=== PATIENT | female | born 1935 | race Caucasian/White ===

== ENCOUNTER 2017-05-05 11:28 | Inpatient (IN) | payer OTHER, BC ==
[2017-05-05] MEDS ORDERED: ASPIRIN 81 MG CHEWABLE TABLETS PO SCH (13:00)
[2017-05-05] MEDS ORDERED: ASPIRIN 81 MG CHEWABLE TABLETS ONE (13:16)
[2017-05-05 13:40] LABS: EOS % 0.3 % (0-4.5); HEMATOCRIT 35.1 % (32.4-45.2); HEMOGLOBIN 11.5 GM/dL (10.7-15.3); LYMPH % 11.9 % (8-40); MCH 29.7 pg (25.7-33.7); MCHC 32.9 g/dl (32.0-36.0); MEAN CELL VOLUME 90.2 fl (80-96); MEAN PLT VOLUME 9.9 fl (7.5-11.1); MONO % 5.3 % (3.8-10.2); NEUT % 81.5 % (42.8-82.8); PLATELET COUNT 187 K/MM3 (134-434); RBC 3.89 M/mm3 (3.60-5.2); WHITE BLOOD COUNT 6.3 K/mm3 (4.0-10.0)
--- NOTE | 2017-05-05 13:41 | PDOC ---
History of Present Illness - General History Source: Patient Exam Limitations: No Limitations <Matt Valenzuela - Last Filed: 05/05/17 16:30> - General History Source: Patient Exam Limitations: No Limitations - History of Present Illness Initial Comments: 05/05/17 14:31 The patient is an 82 year old female with a significant PMH of CAD (s/p 3 vessel CABG in 2016), anemia, HTN, hyperlipidemia, chronic bilateral LE edema, recurrent urinary incontinence who presents to the emergency department from [address] [place] [address] with an episode of chest pain this morning and for evaluation of left arm skin ulceration s/p fall 2 days ago. The patient describes her chest pain as a 30 minute episode of aching left sided chest discomfort, about 4/10 in severity with associated shortness of breath. She currently denies any chest pain or shortness of breath. The [facility] home health aide also reports that the patient fell onto her walker about 2 days ago while getting up from her chair, sustaining a left forearm wound and bruising and left leg bruising. The patient states she has not had her left arm wound treated since then. The patient denies diaphoresis or changes in vision. She denies any jaw pain or arm pain. The patient denies headache and dizziness. Denies fever, chills, nausea, vomit, diarrhea and constipation. Denies dysuria, frequency, urgency and hematuria. Allergies: NKA Past surgical history: CABG. Bilateral shoulder and bilateral knee surgeries. Social history: No reported cigarette, alcohol, or drug use. PCP: Dr. Donato <Matt Whiting - Last Filed: 05/05/17 16:47> - General Chief Complaint: Chest Pain Stated Complaint: CHEST DISCOMFORT Time Seen by Provider: 05/05/17 12:21 Past History - Past Medical History Anemia: Yes Cardiac Disorders: Yes COPD: No CHF: Yes Disorders: Yes (INCONTINENT) HTN: Yes Hypercholesterolemia: Yes - Surgical History Orthopedic Surgery: Yes (BILAT TKR, SHOULDER REPLACEMENT) - Suicide/Smoking/Psychosocial Hx Smoking History: Never smoked Have you smoked in the past 12 months: No Hx Alcohol Use: No Drug/Substance Use Hx: No Substance Use Type: None Hx Substance Use Treatment: No <Matt Valenzuela - Last Filed: 05/05/17 16:30> <Matt Whiting - Last Filed: 05/05/17 16:47> - Past Medical History Allergies/Adverse Reactions: Allergies Allergy/AdvReac Type Severity Reaction Status Date / Time No Known Allergies Allergy Verified 05/05/17 11:44 Home Medications: Ambulatory Orders Atorvastatin Ca [Lipitor] 40 mg PO HS 10/16/15 Folic Acid 1 mg PO DAILY 10/16/15 Furosemide 20 mg PO DAILY 10/16/15 Metoprolol Tartrate 25 mg PO DAILY 10/16/15 Potassium Chloride 20 meq PO DAILY 10/16/15 Acetaminophen [Tylenol] 500 mg PO BID PRN 05/05/17 Aspirin [Aspirin EC] 325 mg PO DAILY 05/05/17 Famotidine [Pepcid -] 40 mg PO DAILY 05/05/17 Review of Systems - Review of Systems Able to Perform ROS?: Yes Comments:: 05/05/17 14:31 GENERAL/CONSTITUTIONAL: No fever or chills. No weakness. HEAD, EYES, EARS, NOSE AND THROAT: No change in vision. No ear pain or discharge. No sore throat. CARDIOVASCULAR: (+) 1 episode of chest pain and shortness of breath (now resolved). RESPIRATORY: No cough, wheezing, or hemoptysis. GASTROINTESTINAL: No nausea, vomiting, diarrhea or constipation. GENITOURINARY: No dysuria, frequency, or change in urination. MUSCULOSKELETAL: No joint or muscle swelling or pain. No neck or back pain. SKIN: (+) Left arm wound. (+) Left leg bruising. NEUROLOGIC: No headache, vertigo, loss of consciousness, or change in strength/ sensation. ENDOCRINE: No increased thirst. No abnormal weight change. HEMATOLOGIC/LYMPHATIC: No anemia, easy bleeding, or history of blood clots. ALLERGIC/IMMUNOLOGIC: No hives or skin allergy. <Matt Whiting - Last Filed: 05/05/17 16:47> *Physical Exam - Vital Signs Last Vital Signs Temp Pulse Resp BP Pulse Ox 97.3 F L 79 18 136/60 97 05/05/17 11:44 05/05/17 11:44 05/05/17 11:44 05/05/17 11:44 05/05/17 11:44 <Matt Valenzuela - Last Filed: 05/05/17 16:30> - Vital Signs Last Vital Signs Temp Pulse Resp BP Pulse Ox 97.3 F L 79 18 136/60 97 05/05/17 11:44 05/05/17 11:44 05/05/17 11:44 05/05/17 11:44 05/05/17 11:44 - Physical Exam Comments: 05/05/17 14:32 GENERAL: Awake, alert, and fully oriented, in no acute distress HEAD: No signs of trauma EYES: PERRLA, EOMI, sclera anicteric, conjunctiva clear NECK: Normal ROM, supple, no lymphadenopathy, JVD, or masses LUNGS: Breath sounds equal, clear to auscultation bilaterally. No wheezes, and no crackles HEART: Regular rate and rhythm, normal S1 and S2, no murmurs, rubs or gallops EXTREMITIES: (+) Chronic LE edema and erythema. Normal range of motion. No clubbing or cyanosis. No cords or tenderness NEUROLOGICAL: Cranial nerves II through XII grossly intact. Normal speech. SKIN: (+) 6x6 cm. erythema with skin ulcerations to left UE. (+) Left LE hematoma over knee. <Matt Whiting - Last Filed: 05/05/17 16:47> Heart Score/ECG Review - History History: Slightly suspicious - Electrocardiogram EKG: Non specific repolarization disturbance - Age Age: >/= 65 - Risk Factors Based on the list above the patient has:: >/=3 risk factors or Hx atherosclerotic disease #1 ECG reviewed & interpreted by me at: 12:10 05/05/17 14:06 NSR 78, Q wave III, no std/beatriz, normal intervals, QTC 414 msec <Matt Valenzuela - Last Filed: 05/05/17 16:30> ED Treatment Course - LABORATORY CBC & Chemistry Diagram: 05/05/17 12:56 05/05/17 12:56 - RADIOLOGY Radiology Studies Ordered: Category Date Time Status CHEST X-RAY PORTABLE* [RAD] Stat Radiology 05/05/17 12:55 Ordered <Matt Valenzuela - Last Filed: 05/05/17 16:30> - LABORATORY CBC & Chemistry Diagram: 05/05/17 12:56 05/05/17 12:56 - ADDITIONAL ORDERS Additional order review: Laboratory Results 05/05/17 05/05/17 14:02 12:56 Sodium 145 Potassium 4.5 Chloride 110 H Carbon Dioxide 24 Anion Gap 11 BUN 24 H Creatinine 0.6 Creat Clearance w eGFR > 60 POC Glucometer 134.48935 Random Glucose 81 Calcium 8.4 L Phosphorus 3.2 Magnesium 2.4 Total Bilirubin 0.5 D AST 16 ALT 15 Alkaline Phosphatase 96 Creatine Kinase 102 Troponin I < 0.02 Total Protein 6.6 Albumin 3.2 L 05/05/17 05/05/17 14:02 12:56 RBC 3.89 MCV 90.2 MCHC 32.9 RDW 16.0 H D MPV 9.9 Neutrophils % 81.5 Lymphocytes % 11.9 D Monocytes % 5.3 Eosinophils % 0.3 Basophils % 1.0 POC Glucometer 134.72882 <Matt Whiting - Last Filed: 05/05/17 16:47> Medical Decision Making - Medical Decision Making 05/05/17 14:05 A portion of this note was documented by scribe services under my direction. I have reviewed the details of the note, within reason, and agree with the documentation with the following case summary and management plan written by me. Patient treated in the ED. Nursing notes are reviewed and incorporated into the medical decision-making. Vital signs reviewed. Peripheral IV access obtained by the nurse, laboratory studies are drawn and sent, reviewed and interpreted by myself. Vital Signs Temp Pulse Resp BP Pulse Ox 97.3 F L 79 18 136/60 97 05/05/17 11:44 05/05/17 11:44 05/05/17 11:44 05/05/17 11:44 05/05/17 11:44 82 year old female with past medical history of hypertension, hyperlipidemia, coronary disease status post CABG presents with 2 complaints. 2 days ago, the patient had a mechanical fall and landed on her walker. Stated that she sustained a scratch onto her left forearm. She developed bruising to her left lower extremity. Since then, the patient has not developed any fevers but noted increasing erythema along the skin ulceration a left arm. Patient reports chronic history of chest discomfort that occasionally pinching squeezing. Had some associated shortness of breath. Stated the symptoms were persistent but the patient reports that this is a chronic issue. Patient has spoken to her doctor at the [facility], [facility] for rehab medicine, and sent the patient to ED for evaluation. Patient's chest pain is atypical blood patient is high risk for acute coronary syndrome. We'll send a troponin, labs and admit the patient for rule out NE. However, we'll concerning insists developing cellulitis over the left upper extremity. Blood cultures were ordered and ceftriaxone and vancomycin was ordered. Ultimately, the patient should be admitted to the hospital. 05/05/17 16:30 CBC, BMP 05/05/17 12:56 05/05/17 12:56 CMP Sodium 145 mmol/L (136-145) 05/05/17 12:56 Potassium 4.5 mmol/L (3.5-5.1) 05/05/17 12:56 Chloride 110 mmol/L (98-107) H 05/05/17 12:56 Carbon Dioxide 24 mmol/L (21-32) 05/05/17 12:56 Anion Gap 11 (8-16) 05/05/17 12:56 BUN 24 mg/dL (7-18) H 05/05/17 12:56 Creatinine 0.6 mg/dL (0.55-1.02) 05/05/17 12:56 Creat Clearance w eGFR > 60 (>60) 05/05/17 12:56 POC Glucometer 134.25166 UNITS (80-120) 05/05/17 14:02 Random Glucose 81 mg/dL (74-106) 05/05/17 12:56 Calcium 8.4 mg/dL (8.5-10.1) L 05/05/17 12:56 Phosphorus 3.2 mg/dL (2.5-4.9) 05/05/17 12:56 Magnesium 2.4 mg/dL (1.8-2.4) 05/05/17 12:56 Total Bilirubin 0.5 mg/dL (0.2-1.0) D 05/05/17 12:56 AST 16 U/L (15-37) 05/05/17 12:56 ALT 15 U/L (12-78) 05/05/17 12:56 Alkaline Phosphatase 96 U/L (45-117) 05/05/17 12:56 Creatine Kinase 102 IU/L (26-192) 05/05/17 12:56 Troponin I < 0.02 ng/ml (0.00-0.05) 05/05/17 12:56 Total Protein 6.6 g/dl (6.4-8.2) 05/05/17 12:56 Albumin 3.2 g/dl (3.4-5.0) L 05/05/17 12:56 Patient's initial troponin was negative. Case was discussed with Dr. Pena who is aware that the patient is here in the ED. Will be life consultant. Case discussed with Dr. Frausto who accepts patient to her service. Requests Dr. Muniz for ID consultation. Dr. Muniz paged. Case discussed in detail with admitting physician including history, physical exam and ancillary studies. Admitting physician has assumed care for the patient, will follow all pending diagnostics and will complete the evaluation and treatment. <Matt Valenzuela - Last Filed: 05/05/17 16:30> - Medical Decision Making 05/05/17 15:[address] Bryant at 14:35, awaiting callback. 2nd page for Dr. Bryant at 15:15, awaiting callback. 05/05/17 16:05 3rd page sent out at 15:50, discussed case with Dr. Bryant. 05/05/17 16:[address] Muniz, who will follow the case. <Matt Whiting - Last Filed: 05/05/17 16:47> *DC/Admit/Observation/Transfer - Discharge Dispostion Admit: Yes <Matt Valenzuela - Last Filed: 05/05/17 16:30> - Attestations Scribe Attestion: 05/05/17 14:32 Documentation prepared by Matt Whiting, acting as anesthesiology medical doctor for Matt Valenzuela MD. <Matt Whiting - Last Filed: 05/05/17 16:47> Diagnosis at time of Disposition: Cellulitis Qualifiers: Site of cellulitis: extremity Site of cellulitis of extremity: upper extremity Laterality: left Qualified Code(s): L03.114 - Cellulitis of left upper limb - Discharge Dispostion Condition at time of disposition: Stable
[2017-05-05 14:01] LABS: ALBUMIN 3.2 g/dl (3.4-5.0); ANION GAP 11 (8-16); BILIRUBIN,TOTAL 0.5 mg/dL (0.2-1.0); BLOOD UREA NITROGEN 24 mg/dL (7-18); CALCIUM 8.4 mg/dL (8.5-10.1); CHLORIDE 110 mmol/L (98-107); CO2 24 mmol/L (21-32); CREATININE 0.6 mg/dL (0.55-1.02); GLUCOSE,RANDOM 81 mg/dL (74-106); MAGNESIUM 2.4 mg/dL (1.8-2.4); PHOSPHOROUS 3.2 mg/dL (2.5-4.9); POTASSIUM 4.5 mmol/L (3.5-5.1); SGOT/AST 16 U/L (15-37); SGPT/ALT 15 U/L (12-78); SODIUM 145 mmol/L (136-145); TOT PROT 6.6 g/dl (6.4-8.2)
[2017-05-05] MEDS ORDERED: CEFTRIAXONE 1 GM in DEXTROSE 5%-WATER - 50 ML IVPB ONE (14:01)
[2017-05-05] MEDS ORDERED: VANCOMYCIN 1,000 MG in DEXTROSE 5%-WATER - 250 ML IVPB ONE (14:02)
[2017-05-05 14:04] LABS: ALK PHOS 96 U/L (45-117)
[2017-05-05 14:17] LABS: INR 0.96 (0.82-1.09); PROTHROMBIN TIME (PATIENT) 10.9 SEC (9.98-11.88)
[2017-05-05 14:19] LABS: ACTIVATED PTT 20.7 SECONDS (26.9-34.4)
[2017-05-05] MEDS ORDERED: VANCOMYCIN 1 GRAM (PRE-DOCKED) 1,000 MG/250 ML BAG IVPB ONE (15:01)
[2017-05-05] MEDS ORDERED: CEFTRIAXONE 1 GM/50 ML BAG ONE (15:01)
[2017-05-05 18:48] VITALS: BMI 31.5
[2017-05-05] MEDS ORDERED: FLU VACCINE QUAD 60 MCG/0.5 ML (MDV 17-18) IM ONE (18:55)
[2017-05-05] MEDS: METOPROLOL TARTRATE 25 MG TABLET (FP) PO SCH (21:29)
[2017-05-05] MEDS: ATORVASTATIN CA 40 MG TABLET (FP) PO SCH (21:29)
[2017-05-06 07:47] LABS: HEMOGLOBIN 10.6 GM/dL (10.7-15.3); MCH 29.6 pg (25.7-33.7); MCHC 33.2 g/dl (32.0-36.0); MEAN CELL VOLUME 89.4 fl (80-96); MEAN PLT VOLUME 9.9 fl (7.5-11.1); PLATELET COUNT 181 K/MM3 (134-434); RBC 3.58 M/mm3 (3.60-5.2); RDW 15.3 % (11.6-15.6); WHITE BLOOD COUNT 4.5 K/mm3 (4.0-10.0)
[2017-05-06 07:54] LABS: CHLORIDE 110 mmol/L (98-107); POTASSIUM 4.1 mmol/L (3.5-5.1); SODIUM 143 mmol/L (136-145)
[2017-05-06 08:33] LABS: ANION GAP 12 (8-16); BLOOD UREA NITROGEN 16 mg/dL (7-18); CALCIUM 8.5 mg/dL (8.5-10.1); CO2 21 mmol/L (21-32); CREATININE 0.5 mg/dL (0.55-1.02); GLUCOSE,RANDOM 86 mg/dL (74-106)
[2017-05-06] MEDS ORDERED: METOPROLOL TARTRATE 25 MG TABLET (FP) PO SCH (10:00)
[2017-05-06] MEDS ORDERED: PT OWN MED DRAWER 7, Y5N ONE (10:16)
[2017-05-06] MEDS: FUROSEMIDE 20 MG TABLET (FP) PO SCH (10:18)
[2017-05-06] MEDS: FOLIC ACID 1 MG TABLET (FP) PO SCH (10:18)
[2017-05-06] MEDS: METOPROLOL TARTRATE 25 MG TABLET (FP) PO SCH ×2 (10:19→21:01)
[2017-05-06] MEDS: ASPIRIN 325 MG ENTERIC COATED TABLET (FP) PO SCH (10:19)
[2017-05-06] MEDS: PANTOPRAZOLE SOD 40 MG SUSPENSION PACKET PO SCH (10:19)
--- NOTE | 2017-05-06 12:14 | HP ---
Admitting History and Physical - Admission History of Present Illness: The patient is an 82 year old female with a significant PMH of CAD (s/p 3 vessel CABG in 2016), anemia, HTN, hyperlipidemia, chronic bilateral LE edema, recurrent urinary incontinence who presents to the emergency department from [address] [place] [address] with an episode of chest pain in the morning and for evaluation of left arm skin ulceration s/p fall 2 days prior to ER visit. The patient describes her chest pain as a 30 minute episode of aching left sided chest discomfort, about 4/10 in severity with associated shortness of breath, non radiating / no diaphoresis / subsided without treatment. Once at ER denied any chest pain or shortness of breath. The patients home health aide also reported that the patient fell onto her walker about 2 days ago while getting up from her chair, sustaining a left forearm wound and bruising and left leg bruising. The patient states she has not had her left arm wound treated since the fall. 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) Cardiovascular: Yes: CAD, Hyperlipdemia, Other (Lymphedema) Reproductive: Yes: Postmenopausal ...: No Heme/Onc: Yes: Anemia - Past Surgical History Past Surgical History: Yes: CABG (triple) - Smoking History Smoking history: Never smoked Have you smoked in the past 12 months: No - Alcohol/Substance Use Hx Alcohol Use: No - Social History Usual Living Arrangement: Yes: Assisted Living History of Recent Travel: No Home Medications - Allergies Allergies/Adverse Reactions: Allergies Allergy/AdvReac Type Severity Reaction Status Date / Time No Known Allergies Allergy Verified 05/05/17 11:44 - Home Medications Home Medications: Ambulatory Orders Atorvastatin Ca [Lipitor] 40 mg PO HS 10/16/15 Folic Acid 1 mg PO DAILY 10/16/15 Furosemide 20 mg PO DAILY 10/16/15 Metoprolol Tartrate 25 mg PO DAILY 10/16/15 Potassium Chloride 20 meq PO DAILY 10/16/15 Acetaminophen [Tylenol] 500 mg PO BID PRN 05/05/17 Aspirin [Aspirin EC] 325 mg PO DAILY 05/05/17 Famotidine [Pepcid -] 40 mg PO DAILY 05/05/17 Review of Systems Findings/Remarks: poor recall / and "unwilling " to discuss hx - Review of Systems Constitutional: denies: Chills, Diaphoresis, Fever Eyes: reports: No Symptoms HENT: reports: No Symptoms Neck: reports: No Symptoms Cardiovascular: reports: Chest Pain, Shortness of Breath, Other (CP associated with SOB, nonradiating/no diaphoresis). denies: Palpitations Respiratory: reports: SOB (associated with CP event) Gastrointestinal: reports: No Symptoms Genitourinary: reports: No Symptoms Breasts: reports: No Symptoms Reported Musculoskeletal: reports: No Symptoms Neurological: reports: Pre-Existing Deficit, Unsteady Gait Hematology/Lymphatic: reports: No Symptoms Physical Examination Vital Signs: Vital Signs Temperature 98.0 F 05/06/17 09:20 Pulse Rate 90 05/06/17 09:20 Respiratory Rate 22 05/06/17 09:20 Blood Pressure 114/49 05/06/17 09:20 O2 Sat by Pulse Oximetry (%) 97 05/06/17 03:00 Constitutional: Yes: Well Nourished, No Distress Eyes: Yes: WNL, Conjunctiva Clear HENT: Yes: WNL, Atraumatic, Normocephalic Neck: Yes: WNL, Supple, Trachea Midline Cardiovascular: Yes: Regular Rate and Rhythm Respiratory: Yes: WNL, CTA Bilaterally Gastrointestinal: Yes: Normal Bowel Sounds, Soft ...Rectal Exam: Yes: Deferred Renal/: Yes: WNL Breast(s): Yes: WNL Musculoskeletal: Yes: Joint Stiffness, Muscle Pain Extremities: Yes: Other (bilateral lymphedema) Edema: Yes (lymphedema chronic bilat) Peripheral Pulses WNL: Yes Integumentary: Yes: Laceration (left forearm) Wound/Incision: Yes: Open to air, Reddened Neurological: Yes: Alert, Oriented, Pre-Existing Deficit Psychiatric: Yes: Alert Labs: CBC, BMP 05/06/17 06:10 05/06/17 06:10 Problem List - Problems (1) Cellulitis Code(s): L03.90 - CELLULITIS, UNSPECIFIED Qualifiers: Site of cellulitis: extremity Site of cellulitis of extremity: upper extremity Laterality: left Qualified Code(s): L03.114 - Cellulitis of left upper limb (2) Atypical chest pain Code(s): R07.89 - OTHER CHEST PAIN (3) HTN (hypertension) Code(s): I10 - ESSENTIAL (PRIMARY) HYPERTENSION (4) Hyperlipemia Code(s): E78.5 - HYPERLIPIDEMIA, UNSPECIFIED (5) Lymphedema of both lower extremities Code(s): I89.0 - LYMPHEDEMA, NOT ELSEWHERE CLASSIFIED
--- NOTE | 2017-05-06 13:14 | CON.ID ---
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 bilateral shoulder replacements - Alcohol/Substance Use Hx Alcohol Use: No - Smoking History Smoking history: Never smoked Have you smoked in the past 12 months: No - Social History Usual Living Arrangement: Assisted Living ADL: Independent Place of : [facility] History of Recent Travel: No Home Medications - Allergies Allergies/Adverse Reactions: Allergies Allergy/AdvReac Type Severity Reaction Status Date / Time No Known Allergies Allergy Verified 05/05/17 11:44 - Home Medications Home Medications: Ambulatory Orders Atorvastatin Ca [Lipitor] 40 mg PO HS 10/16/15 Folic Acid 1 mg PO DAILY 10/16/15 Furosemide 20 mg PO DAILY 10/16/15 Metoprolol Tartrate 25 mg PO DAILY 10/16/15 Potassium Chloride 20 meq PO DAILY 10/16/15 Acetaminophen [Tylenol] 500 mg PO BID PRN 05/05/17 Aspirin [Aspirin EC] 325 mg PO DAILY 05/05/17 Famotidine [Pepcid -] 40 mg PO DAILY 05/05/17 Family Disease History - Family Disease History Family History: Unable to Obtain Review of Systems - Review of Systems Constitutional: reports: No Symptoms Eyes: reports: No Symptoms HENT: reports: No Symptoms Neck: reports: No Symptoms Cardiovascular: reports: No Symptoms Respiratory: reports: No Symptoms Gastrointestinal: reports: No Symptoms Genitourinary: reports: No Symptoms Breasts: reports: No Symptoms Reported Musculoskeletal: reports: No Symptoms Integumentary: reports: Erythema, Lesions Neurological: reports: No Symptoms Physical Exam Vital Signs: Vital Signs Temperature 98.0 F 05/06/17 09:20 Pulse Rate 90 05/06/17 09:20 Respiratory Rate 22 05/06/17 09:20 Blood Pressure 114/49 05/06/17 09:20 O2 Sat by Pulse Oximetry (%) 97 05/06/17 08:00 Constitutional: Yes: Well Nourished, No Distress, Calm Eyes: Yes: Conjunctiva Clear, EOM Intact HENT: Yes: Atraumatic, Normocephalic. No: Pharyngeal Erythema, Thrush Neck: Yes: Supple, Trachea Midline Cardiovascular: Yes: Regular Rate and Rhythm Respiratory: Yes: Regular, CTA Bilaterally Gastrointestinal: Yes: Normal Bowel Sounds, Soft ...Rectal Exam: Yes: Deferred Extremities: Yes: Other (bilateral lymphedema, well healed bilateral TKR incisions, ecchymoses of the LLE, right forearm ulcer no drainage, erythema receding from marked edges) Integumentary: Yes: Other (sutures intact L shoulder) Psychiatric: Yes: Alert Labs: CBC, BMP 05/06/17 06:10 05/06/17 06:10 Problem List - Problems (1) Cellulitis Code(s): L03.90 - CELLULITIS, UNSPECIFIED Qualifiers: Site of cellulitis: extremity Site of cellulitis of extremity: upper extremity Laterality: left Qualified Code(s): L03.114 - Cellulitis of left upper limb (2) Lymphedema of both lower extremities Code(s): I89.0 - LYMPHEDEMA, NOT ELSEWHERE CLASSIFIED Assessment/Plan cellulitis of the forearm - resolving no history of resistant organisms no abscess, cefazolin iv then po keflex
[2017-05-06] MEDS: CEFAZOLIN 2 GM/D5W 2 GM/50 ML ML IVPB SCH ×2 (15:45→18:24)
--- NOTE | 2017-05-06 16:11 | CON.CARD ---
Cardiology Consult (text) - Consultation Consultation Note: CC: cp 82 year old female with a significant PMH of CAD (s/p 3 vessel CABG in 2016), dementia, anemia, HTN, hyperlipidemia, chronic bilateral LE edema, recurrent urinary incontinence who presents to the emergency department from [address] [place] [address] with an episode of chest pain in the morning and for evaluation of left arm skin ulceration s/p fall 2 days prior to ER visit. Patient is currently confused and has no memory of the pain. Also with no memory of recent fall. Unable to obtain reliable history. Denies cp, palps, sob, dizziness, orthopnea, pnd, worsened le edema. Denies f/c/s, n/v/d, cough, congestion, h/a, pain at left arm injury, Per report, the patient had described her chest pain as a 30 minute episode of aching left sided chest discomfort, about 4/10 in severity with associated shortness of breath, non radiating / no diaphoresis / subsided without treatment. Once at ER denied any chest pain or shortness of breath. The patients home health aide also reported that the patient fell onto her walker about 2 days ago while getting up from her chair, sustaining a left forearm wound and bruising and left leg bruising. 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) Cardiovascular: Yes: CAD, Hyperlipdemia, Other (Lymphedema) Reproductive: Yes: Postmenopausal ...: No Heme/Onc: Yes: Anemia - Past Surgical History Past Surgical History: Yes: CABG (triple) - Smoking History Smoking history: Never smoked family hx: unable to obtain ros: per [facility] Ambulatory Orders Atorvastatin Ca [Lipitor] 40 mg PO HS 10/16/15 Folic Acid 1 mg PO DAILY 10/16/15 Furosemide 20 mg PO DAILY 10/16/15 Metoprolol Tartrate 25 mg PO DAILY 10/16/15 Potassium Chloride 20 meq PO DAILY 10/16/15 Acetaminophen [Tylenol] 500 mg PO BID PRN 05/05/17 Aspirin [Aspirin EC] 325 mg PO DAILY 05/05/17 Famotidine [Pepcid -] 40 mg PO DAILY 05/05/17 Current Medications Aspirin (Ecotrin -) 325 mg PO DAILY [facility] Last Admin: 05/06/17 10:19 Dose: 325 mg Atorvastatin Calcium (Lipitor -) 40 mg PO HS [facility] Last Admin: 05/05/17 21:29 Dose: 40 mg Folic Acid (Folic Acid -) 1 mg PO DAILY [facility] Last Admin: 05/06/17 10:18 Dose: 1 mg Furosemide (Lasix -) 20 mg PO DAILY [facility] Last Admin: 05/06/17 10:18 Dose: 20 mg Cefazolin Sodium/Dextrose (Ancef 2 Gm Premixed Ivpb -) 2 gm in 50 mls @ 100 mls /hr IVPB Q8H-IV [facility] Last Admin: 05/06/17 15:45 Dose: 100 mls/hr Metoprolol Tartrate (Lopressor -) 25 mg PO BID [facility] Last Admin: 05/06/17 10:19 Dose: 25 mg Pantoprazole Sodium (Protonix Packets For Oral Suspension -) 40 mg PO DAILY [facility] Last Admin: 05/06/17 10:19 Dose: 40 mg Vital Signs - 24 hr 05/05/17 05/05/17 05/05/17 17:13 18:47 20:44 Temperature 98.4 F 98.0 F Pulse Rate 89 78 Pulse Rate [ 95 H Apical] Respiratory 20 18 18 Rate Blood Pressure 147/69 139/74 Blood Pressure 146/62 [Right Arm] O2 Sat by Pulse 100 Oximetry (%) 05/05/17 05/05/17 05/05/17 21:00 23:00 23:43 Temperature Pulse Rate Pulse Rate [ Apical] Respiratory Rate Blood Pressure Blood Pressure [Right Arm] O2 Sat by Pulse 97 97 97 Oximetry (%) 05/06/17 05/06/17 05/06/17 03:00 06:00 08:00 Temperature 98.4 F 98.0 F Pulse Rate 80 100 H Pulse Rate [ Apical] Respiratory 21 20 Rate Blood Pressure 157/62 113/64 Blood Pressure [Right Arm] O2 Sat by Pulse 97 97 Oximetry (%) 05/06/17 05/06/17 09:20 14:00 Temperature 98.0 F 98.7 F Pulse Rate 90 88 Pulse Rate [ Apical] Respiratory 22 20 Rate Blood Pressure 114/49 119/60 Blood Pressure [Right Arm] O2 Sat by Pulse Oximetry (%) Intake & Output 05/04/17 05/05/17 05/06/17 05/07/17 07:59 07:59 07:59 08:59 Intake Total 250 Balance 250 Weight 175 lb 5 oz nad, calm jvd flat, neck supple ctab, poor effort rrr nl s1, s2, 2/6 sys murmur at sternal border + bs soft nt nd ext with 1+ LE edema, no cyanosis or clubbing + eccymosis + dp/pt, no carotid bruit alert, not oriented no jaundice, diaphoresis. CBC, BMP 05/06/17 06:10 05/06/17 06:10 Laboratory Tests 05/05/17 12:56 Magnesium 2.4 Total Bilirubin 0.5 D AST 16 ALT 15 Alkaline Phosphatase 96 Creatine Kinase 102 Troponin I < 0.02 Albumin 3.2 L ekg: nsr, inf q's similar to priors. cxr: no acute pathology LHC 12/2014--3vD (cabg after this) Echo 12/2014: nl LV size, nl overall EF; basal inferolat and kaeds-os-pcn IW hypo; conc LVH; nl RV; valves WNL; no pulm HTN 82 year old female with history of CAD (s/p 3 vessel CABG in 2016), HTN, hyperlipidemia, chronic bilateral LE edema, recurrent urinary incontinence and dementia who presents with cp. CP/cad s/p cabg/HL - CE's negative x 1, will add on second set to this morning's labs. Ekg without acute ischemic changes. No recurrence of chest pain. - cont cad meds, asa, statin, bb. ldl at goal. will confirm dose of ASA when able to access office records. htn - bp overall controlled for age LE edema - stable, con't lasix cellulitis - per pmd/id
[2017-05-06] MEDS: ATORVASTATIN CA 40 MG TABLET (FP) PO SCH (21:01)
[2017-05-06] MEDS ORDERED: HALOPERIDOL LACTATE 5 MG/ML IM ONE (21:30)
[2017-05-07] MEDS: CEFAZOLIN 2 GM/D5W 2 GM/50 ML ML IVPB SCH ×3 (03:24→17:00)
[2017-05-07 08:28] LABS: ALBUMIN 2.9 g/dl (3.4-5.0); ANION GAP 9 (8-16); BLOOD UREA NITROGEN 14 mg/dL (7-18); CALCIUM 7.9 mg/dL (8.5-10.1); CHLORIDE 109 mmol/L (98-107); CO2 24 mmol/L (21-32); GLUCOSE,RANDOM 83 mg/dL (74-106); SODIUM 142 mmol/L (136-145)
[2017-05-07 08:32] LABS: ALK PHOS 84 U/L (45-117); BILIRUBIN,TOTAL 0.6 mg/dL (0.2-1.0); CHOLESTEROL 148 mg/dL (50-200); CREATININE 0.6 mg/dL (0.55-1.02); HDL CHOLESTEROL 72 mg/dL (40-60); LDL CHOLESTEROL (ONLY SJRH) 69 mg/dL (5-100); SGPT/ALT 11 U/L (12-78); TOT PROT 5.9 g/dl (6.4-8.2); TRIGLYCERIDES 69 mg/dL (35-160)
[2017-05-07 08:37] LABS: POTASSIUM 4.2 mmol/L (3.5-5.1); SGOT/AST 18 U/L (15-37)
[2017-05-07] MEDS ORDERED: PT OWN MED DRAWER 7, Y5N ONE (09:12)
[2017-05-07] MEDS: PANTOPRAZOLE SOD 40 MG SUSPENSION PACKET PO SCH (09:17)
[2017-05-07] MEDS: FUROSEMIDE 20 MG TABLET (FP) PO SCH (09:17)
[2017-05-07] MEDS: METOPROLOL TARTRATE 25 MG TABLET (FP) PO SCH ×2 (09:17→21:11)
[2017-05-07] MEDS: FOLIC ACID 1 MG TABLET (FP) PO SCH (09:17)
[2017-05-07 10:17] LABS: BASO % 0.6 % (0-2.0); EOS % 0.3 % (0-4.5); HEMATOCRIT 33.1 % (32.4-45.2); HEMOGLOBIN 11.1 GM/dL (10.7-15.3); MCH 29.7 pg (25.7-33.7); MCHC 33.5 g/dl (32.0-36.0); MEAN CELL VOLUME 88.5 fl (80-96); MEAN PLT VOLUME 9.7 fl (7.5-11.1); MONO % 5.9 % (3.8-10.2); NEUT % 81.2 % (42.8-82.8); PLATELET COUNT 198 K/MM3 (134-434); RBC 3.74 M/mm3 (3.60-5.2); RDW 15.4 % (11.6-15.6); WHITE BLOOD COUNT 5.6 K/mm3 (4.0-10.0)
[2017-05-07] MEDS: ASPIRIN 325 MG ENTERIC COATED TABLET (FP) PO SCH (10:36)
--- NOTE | 2017-05-07 12:24 | PN ---
Progress Note (short form) - Note Progress Note: doing well today much less confused daughter and are visiting she is back at her baseline per daughter Vital Signs Period Temp Pulse Resp BP Sys/Rosenberg Pulse Ox Last 24 Hr 97.9 F-98.7 F 74-100 18-20 119-158/60-77 95-95 cor-rrr lungs clear abd soft,nt ext bilateral lymphedema +ecchymoses left leg, erythema of the arm has resolved abrasion is drying CBC, BMP 05/07/17 09:55 05/07/17 06:48 Microbiology 05/05/17 14:04 Blood - Peripheral Venous Blood Culture - Preliminary NO GROWTH OBTAINED AFTER 24 HOURS, INCUBATION TO CONTINUE FOR 4 DAYS. 05/05/17 14:04 Blood - Peripheral Venous Blood Culture - Preliminary NO GROWTH OBTAINED AFTER 24 HOURS, INCUBATION TO CONTINUE FOR 4 DAYS. a/p cellulitis is resolving can switch to po keflex when ready for discharge d/w daughter at bedside Problem List - Problems (1) Cellulitis Code(s): L03.90 - CELLULITIS, UNSPECIFIED Qualifiers: Site of cellulitis: extremity Site of cellulitis of extremity: upper extremity Laterality: left Qualified Code(s): L03.114 - Cellulitis of left upper limb (2) Lymphedema of both lower extremities Code(s): I89.0 - LYMPHEDEMA, NOT ELSEWHERE CLASSIFIED
--- NOTE | 2017-05-07 15:00 | PN ---
Progress Note (short form) - Note Progress Note: Patient with sundowning last night -required Haldol today seen with and daughter at side patient transfered to hallway for safety Seem appropriate and aware of her surroundings oriented to place and time NO distress / c/o moist cough denies CP or SOB since admission Vital Signs Period Temp Pulse Resp BP Sys/Rosenberg Pulse Ox Last 24 Hr 97.9 F-98.7 F 74-100 18-20 114-158/54-77 95-95 neck supple heart S1/S2 Lungs grossly clear abd soft on tender ext left UE resolving skin tear with decreased erythema around borders bilat LE decreased edema - +lymphedema CBC, BMP 05/07/17 09:55 05/07/17 06:48 Microbiology 05/05/17 14:04 Blood - Peripheral Venous Blood Culture - Preliminary NO GROWTH OBTAINED AFTER 48 HOURS, INCUBATION TO CONTINUE FOR 3 DAYS. 05/05/17 14:04 Blood - Peripheral Venous Blood Culture - Preliminary NO GROWTH OBTAINED AFTER 24 HOURS, INCUBATION TO CONTINUE FOR 4 DAYS. Active Medications Aspirin (Ecotrin -) 325 mg PO DAILY [facility] Last Admin: 05/07/17 10:36 Dose: 325 mg Atorvastatin Calcium (Lipitor -) 40 mg PO HS [facility] Last Admin: 05/06/17 21:01 Dose: 40 mg Folic Acid (Folic Acid -) 1 mg PO DAILY [facility] Last Admin: 05/07/17 09:17 Dose: 1 mg Furosemide (Lasix -) 20 mg PO DAILY [facility] Last Admin: 05/07/17 09:17 Dose: 20 mg Cefazolin Sodium/Dextrose (Ancef 2 Gm Premixed Ivpb -) 2 gm in 50 mls @ 100 mls /hr IVPB Q8H-IV [facility] Last Admin: 05/07/17 09:17 Dose: 100 mls/hr Metoprolol Tartrate (Lopressor -) 25 mg PO BID [facility] Last Admin: 05/07/17 09:17 Dose: 25 mg Pantoprazole Sodium (Protonix Packets For Oral Suspension -) 40 mg PO DAILY [facility] Last Admin: 05/07/17 09:17 Dose: 40 mg #Cellulitis left UE improving ID consult and follow up appreciated # atypical chest pain neg TNI / no EKG changes doubtful cardiac in origin Cardiology consult in view of extensive CAD HX # dementia mild to moderate will reassess as out patient for medical management Problem List - Problems (1) Cellulitis Code(s): L03.90 - CELLULITIS, UNSPECIFIED Qualifiers: Site of cellulitis: extremity Site of cellulitis of extremity: upper extremity Laterality: left Qualified Code(s): L03.114 - Cellulitis of left upper limb (2) Atypical chest pain Code(s): R07.89 - OTHER CHEST PAIN (3) HTN (hypertension) Code(s): I10 - ESSENTIAL (PRIMARY) HYPERTENSION (4) Hyperlipemia Code(s): E78.5 - HYPERLIPIDEMIA, UNSPECIFIED (5) Lymphedema of both lower extremities Code(s): I89.0 - LYMPHEDEMA, NOT ELSEWHERE CLASSIFIED
--- NOTE | 2017-05-07 16:13 | PN ---
Progress Note (short form) - Note Progress Note: CC: CP S: patient remains confused. unable to obtain reliable hx, but denies cp, palps , dizziness, sob. Current Medications Aspirin (Ecotrin -) 325 mg PO DAILY [facility] Last Admin: 05/07/17 10:36 Dose: 325 mg Atorvastatin Calcium (Lipitor -) 40 mg PO HS [facility] Last Admin: 05/06/17 21:01 Dose: 40 mg Folic Acid (Folic Acid -) 1 mg PO DAILY [facility] Last Admin: 05/07/17 09:17 Dose: 1 mg Furosemide (Lasix -) 20 mg PO DAILY [facility] Last Admin: 05/07/17 09:17 Dose: 20 mg Cefazolin Sodium/Dextrose (Ancef 2 Gm Premixed Ivpb -) 2 gm in 50 mls @ 100 mls /hr IVPB Q8H-IV [facility] Last Admin: 05/07/17 09:17 Dose: 100 mls/hr Metoprolol Tartrate (Lopressor -) 25 mg PO BID [facility] Last Admin: 05/07/17 09:17 Dose: 25 mg Pantoprazole Sodium (Protonix Packets For Oral Suspension -) 40 mg PO DAILY [facility] Last Admin: 05/07/17 09:17 Dose: 40 mg Vital Signs - 24 hr 05/06/17 05/06/17 05/06/17 18:00 20:24 22:46 Temperature 98.0 F 97.9 F Pulse Rate 86 74 Respiratory 18 20 Rate Blood Pressure 122/64 O2 Sat by Pulse 95 Oximetry (%) 05/07/17 05/07/17 05/07/17 06:00 08:00 14:00 Temperature 98.6 F 98.4 F 98.4 F Pulse Rate 79 100 H 79 Respiratory 18 20 18 Rate Blood Pressure 158/77 153/68 114/54 O2 Sat by Pulse 95 Oximetry (%) Intake & Output 05/05/17 05/06/17 05/07/17 05/08/17 06:59 06:59 07:59 07:59 Intake Total 300 Balance 300 Weight nad, calm jvd flat, neck supple ctab, poor effort rrr nl s1, s2, 2/6 sys murmur at sternal border + bs soft nt nd ext with trace LE edema, no cyanosis or clubbing + dp/pt, no carotid bruit alert, not oriented. no jaundice, diaphoresis. CBC, BMP 03/11/18 09:55 05/07/17 06:48 Laboratory Tests 05/05/17 05/06/17 05/07/17 12:56 20:00 06:48 Creatine Kinase 102 78 Troponin I < 0.02 < 0.02 Albumin 2.9 L Triglycerides 69 Cholesterol 148 Total LDL Cholesterol 69 HDL Cholesterol 72 H ekg: nsr, inf q's similar to priors. cxr: no acute pathology LHC 12/2014--3vD (cabg after this) Echo 12/2014: nl LV size, nl overall EF; basal inferolat and dlfwy-la-[id number] IW hypo; conc LVH; nl RV; valves WNL; no pulm HTN 82 year old female with history of CAD (s/p 3 vessel CABG in 2016), HTN, hyperlipidemia, chronic bilateral LE edema, recurrent urinary incontinence and dementia who presents with cp. CP/cad s/p cabg/HL - multiple unsuccessful attempts to have CE's added on to yesterday morning's labs. CE's negative. Ekg without acute ischemic changes. No recurrence of chest discomfort. - will plan on echo tomorrow to assess cardiac systolic function. - cont cad meds, asa, statin, bb. ldl at goal. per office records, pt on low dose ASA when able to access office records--> will decrease dose. per office records patient only on daily toprol, but will con't bid dosing while she remains cp free with stable bp/hr on this dose. . htn - bp overall controlled for age on toprol LE edema - stable, con't lasix cellulitis - per pmd/id
--- NOTE | 2017-05-07 20:33 | EKG ---
Test Reason : Blood Pressure : / mmHG Vent. Rate : 078 BPM Atrial Rate : 078 BPM P-R Int : 172 ms QRS Dur : 074 ms QT Int : 364 ms P-R-T Axes : 069 -14 021 degrees QTc Int : 414 ms NORMAL SINUS RHYTHM POSSIBLE LEFT ATRIAL ENLARGEMENT INFERIOR INFARCT (CITED ON OR BEFORE 16-OCT-2015) ABNORMAL ECG WHEN COMPARED WITH ECG OF 17-OCT-2015 10:25, T WAVE VARIATION Confirmed by JAKE BRANDT, RENNY ([id number]) on 05/07/2017 8:33:36 PM Referred By: Confirmed By:RENNY JOSEPH MD
[2017-05-07] MEDS: ATORVASTATIN CA 40 MG TABLET (FP) PO SCH (21:11)
[2017-05-07] MEDS ORDERED: HALOPERIDOL LACTATE 5 MG/ML IM ONE (23:45)
[2017-05-08] MEDS: CEFAZOLIN 2 GM/D5W 2 GM/50 ML ML IVPB SCH ×3 (01:21→20:17)
--- NOTE | 2017-05-08 09:13 | PN ---
Progress Note, Physician Chief Complaint: cp History of Present Illness: denies cp denies sob denies palpitations leg swelling stable - Current Medication List Current Medications: Active Medications Aspirin (Ecotrin -) 81 mg PO DAILY [facility] Atorvastatin Calcium (Lipitor -) 40 mg PO HS [facility] Last Admin: 05/07/17 21:11 Dose: 40 mg Folic Acid (Folic Acid -) 1 mg PO DAILY [facility] Last Admin: 05/07/17 09:17 Dose: 1 mg Furosemide (Lasix -) 20 mg PO DAILY [facility] Last Admin: 05/07/17 09:17 Dose: 20 mg Cefazolin Sodium/Dextrose (Ancef 2 Gm Premixed Ivpb -) 2 gm in 50 mls @ 100 mls /hr IVPB Q8H-IV [facility] Last Admin: 05/08/17 01:21 Dose: 100 mls/hr Metoprolol Tartrate (Lopressor -) 25 mg PO BID [facility] Last Admin: 05/07/17 21:11 Dose: 25 mg Pantoprazole Sodium (Protonix Packets For Oral Suspension -) 40 mg PO DAILY [facility] Last Admin: 05/07/17 09:17 Dose: 40 mg - Objective Vital Signs: Vital Signs Temperature 98 F 05/08/17 08:50 Pulse Rate 91 H 05/08/17 08:50 Respiratory Rate 20 05/08/17 08:50 Blood Pressure 128/46 05/08/17 08:50 O2 Sat by Pulse Oximetry (%) 96 05/07/17 20:35 Constitutional: Yes: Well Nourished, No Distress, Calm Cardiovascular: Yes: Regular Rate and Rhythm, S1, S2, Other (very tender over palpation of left and right parasternal regions). No: Gallop, Murmur Respiratory: Yes: Regular, CTA Bilaterally. No: Accessory Muscle Use, Rales, Wheezes Extremities: No: Cold Edema: No Neurological: Yes: Alert. No: Seizure Psychiatric: No: Agitated Labs: CBC, BMP 05/07/17 09:55 05/07/17 06:48 INR, PTT INR 0.96 (0.82-1.09) 05/05/17 12:56 Assessment/Plan ekg: nsr, inf q's similar to priors. cxr: no acute pathology LHC 12/2014--3vD (cabg after this) Echo 12/2014: nl LV size, nl overall EF; basal inferolat and bepir-bn-bpr IW hypo; conc LVH; nl RV; valves WNL; no pulm HTN 82 year old female with history of CAD (s/p 3 vessel CABG in 2016), HTN, hyperlipidemia, chronic bilateral LE edema, recurrent urinary incontinence and dementia who presents with cp. CP, cad s/p cabg - troponins negative. Ekg without acute ischemic changes. No recurrence of chest discomfort. - exact details of cp, and of prior fall (i.e. ? blunt injury to chest) unclear , due to pt poor memory - ? 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 - if no new RWMA on echo, stress testing can be deferred unless develops suspicious sx's - cont cad meds asa, statin, bb, as doing htn - bp overall controlled for age on toprol LE edema, venous insufficiency: - stable, con't lasix cellulitis - per pmd/id
[2017-05-08] MEDS: PANTOPRAZOLE SOD 40 MG SUSPENSION PACKET PO SCH (10:21)
[2017-05-08] MEDS: METOPROLOL TARTRATE 25 MG TABLET (FP) PO SCH ×2 (10:21→21:05)
[2017-05-08] MEDS: ASPIRIN COATED 81 MG TABLET.EC PO SCH (10:21)
[2017-05-08] MEDS: FUROSEMIDE 20 MG TABLET (FP) PO SCH (10:21)
[2017-05-08] MEDS: FOLIC ACID 1 MG TABLET (FP) PO SCH (10:21)
--- NOTE | 2017-05-08 16:40 | PN ---
Progress Note (short form) - Note Progress Note: patient seen and examined in bed Seem appropriate and aware of her surroundings oriented to place and time NO distress / denies CP or SOB since admission Vital Signs Period Temp Pulse Resp BP Sys/Rosenberg Pulse Ox Last 24 Hr 97.9 F-98.7 F 57-91 18-20 122-145/46-80 96-96 neck supple heart S1/S2 Lungs grossly clear abd soft on tender ext left UE resolving skin tear with decreased erythema around borders bilat LE decreased edema - +lymphedema CBC, BMP 05/07/17 09:55 05/07/17 06:48 Microbiology 05/05/17 14:04 Blood - Peripheral Venous Blood Culture - Preliminary NO GROWTH OBTAINED AFTER 72 HOURS, INCUBATION TO CONTINUE FOR 2 DAYS. 05/05/17 14:04 Blood - Peripheral Venous Blood Culture - Preliminary NO GROWTH OBTAINED AFTER 72 HOURS, INCUBATION TO CONTINUE FOR 2 DAYS. 05/06/17 22:20 Urine - Urine Clean Catch Urine Culture - Final NO GROWTH OBTAINED :04 Blood - Peripheral Venous Blood Culture - Preliminary NO GROWTH OBTAINED AFTER 48 HOURS, INCUBATION TO CONTINUE FOR 3 DAYS. 05/05/17 14:04 Blood - Peripheral Venous Blood Culture - Preliminary NO GROWTH OBTAINED AFTER 24 HOURS, INCUBATION TO CONTINUE FOR 4 DAYS. Active Medications Aspirin (Ecotrin -) 81 mg PO DAILY [facility] Last Admin: 05/08/17 10:21 Dose: 81 mg Atorvastatin Calcium (Lipitor -) 40 mg PO HS [facility] Last Admin: 05/07/17 21:11 Dose: 40 mg Folic Acid (Folic Acid -) 1 mg PO DAILY [facility] Last Admin: 05/08/17 10:21 Dose: 1 mg Furosemide (Lasix -) 20 mg PO DAILY [facility] Last Admin: 05/08/17 10:21 Dose: 20 mg Cefazolin Sodium/Dextrose (Ancef 2 Gm Premixed Ivpb -) 2 gm in 50 mls @ 100 mls /hr IVPB Q8H-IV [facility] Last Admin: 05/08/17 09:34 Dose: 100 mls/hr Metoprolol Tartrate (Lopressor -) 25 mg PO BID [facility] Last Admin: 05/08/17 10:21 Dose: 25 mg Pantoprazole Sodium (Protonix Packets For Oral Suspension -) 40 mg PO DAILY [facility] Last Admin: 05/08/17 10:21 Dose: 40 mg #Cellulitis left UE hx of lymphedema NAYELI improving ID consult and follow up appreciated # atypical chest pain neg TNI / no EKG changes doubtful cardiac in origin appreciate cardio evaluation - patient with extensive Cardiac hx - but appears stable at this time # HTN adequately controlled # dementia mild to moderate will reassess as out patient for medical management Problem List - Problems (1) Cellulitis Code(s): L03.90 - CELLULITIS, UNSPECIFIED Qualifiers: Site of cellulitis: extremity Site of cellulitis of extremity: upper extremity Laterality: left Qualified Code(s): L03.114 - Cellulitis of left upper limb (2) Atypical chest pain Code(s): R07.89 - OTHER CHEST PAIN (3) HTN (hypertension) Code(s): I10 - ESSENTIAL (PRIMARY) HYPERTENSION (4) Hyperlipemia Code(s): E78.5 - HYPERLIPIDEMIA, UNSPECIFIED (5) Lymphedema of both lower extremities Code(s): I89.0 - LYMPHEDEMA, NOT ELSEWHERE CLASSIFIED
[2017-05-08] MEDS: ATORVASTATIN CA 40 MG TABLET (FP) PO SCH (21:05)
[2017-05-09] MEDS ORDERED: PT OWN MED DRAWER 7, Y5N ONE (02:15)
[2017-05-09] MEDS: CEFAZOLIN 2 GM/D5W 2 GM/50 ML ML IVPB SCH ×2 (02:17→09:24)
[2017-05-09 07:24] LABS: BASO % 0.9 % (0-2.0); EOS % 5.8 % (0-4.5); HEMOGLOBIN 11.9 GM/dL (10.7-15.3); LYMPH % 20.2 % (8-40); MCH 29.2 pg (25.7-33.7); MEAN CELL VOLUME 88.4 fl (80-96); MEAN PLT VOLUME 9.6 fl (7.5-11.1); MONO % 9.2 % (3.8-10.2); NEUT % 63.9 % (42.8-82.8); PLATELET COUNT 232 K/MM3 (134-434); RBC 4.07 M/mm3 (3.60-5.2); RDW 15.4 % (11.6-15.6); WHITE BLOOD COUNT 4.6 K/mm3 (4.0-10.0)
[2017-05-09 08:05] LABS: ANION GAP 8 (8-16); BLOOD UREA NITROGEN 14 mg/dL (7-18); CALCIUM 7.9 mg/dL (8.5-10.1); CHLORIDE 108 mmol/L (98-107); CO2 26 mmol/L (21-32); CREATININE 0.6 mg/dL (0.55-1.02); GLUCOSE,RANDOM 80 mg/dL (74-106); POTASSIUM 4.2 mmol/L (3.5-5.1); SODIUM 142 mmol/L (136-145)
[2017-05-09] MEDS: FOLIC ACID 1 MG TABLET (FP) PO SCH (09:23)
[2017-05-09] MEDS: ASPIRIN COATED 81 MG TABLET.EC PO SCH (09:23)
[2017-05-09] MEDS: PANTOPRAZOLE SOD 40 MG SUSPENSION PACKET PO SCH (09:24)
[2017-05-09] MEDS: METOPROLOL TARTRATE 25 MG TABLET (FP) PO SCH (09:24)
[2017-05-09] MEDS: FUROSEMIDE 20 MG TABLET (FP) PO SCH (09:24)
--- NOTE | 2017-05-09 10:55 | PN ---
Progress Note (short form) - Note Progress Note: Chief Complaint: cp History of Present Illness: denies cp denies sob denies palpitations leg swelling stable Current Medications Aspirin (Ecotrin -) 81 mg PO DAILY [facility] Last Admin: 05/09/17 09:23 Dose: 81 mg Atorvastatin Calcium (Lipitor -) 40 mg PO HS [facility] Last Admin: 05/08/17 21:05 Dose: 40 mg Folic Acid (Folic Acid -) 1 mg PO DAILY [facility] Last Admin: 05/09/17 09:23 Dose: 1 mg Furosemide (Lasix -) 20 mg PO DAILY [facility] Last Admin: 05/09/17 09:24 Dose: 20 mg Cefazolin Sodium/Dextrose (Ancef 2 Gm Premixed Ivpb -) 2 gm in 50 mls @ 100 mls /hr IVPB Q8H-IV [facility] Last Admin: 05/09/17 09:24 Dose: 100 mls/hr Metoprolol Tartrate (Lopressor -) 25 mg PO BID [facility] Last Admin: 05/09/17 09:24 Dose: 25 mg Pantoprazole Sodium (Protonix Packets For Oral Suspension -) 40 mg PO DAILY [facility] Last Admin: 05/09/17 09:24 Dose: 40 mg - Objective Vital Signs: Vital Signs - 24 hr 05/08/17 05/08/17 05/08/17 14:20 22:00 22:53 Temperature 97.9 F 98.0 F 98.6 F Pulse Rate 83 92 H 80 Respiratory 20 20 Rate Blood Pressure 128/68 142/62 130/70 O2 Sat by Pulse 96 Oximetry (%) 05/09/17 05:37 Temperature 98.6 F Pulse Rate 87 Respiratory 20 Rate Blood Pressure 133/68 O2 Sat by Pulse Oximetry (%) Intake & Output 05/07/17 05/08/17 05/09/17 05/10/17 07:59 07:59 07:59 07:59 Intake Total 600 950 Balance 600 950 Weight 172 lb 4 oz 170 lb 1 oz Constitutional: Yes: Well Nourished, No Distress, Calm Cardiovascular: Yes: Regular Rate and Rhythm, S1, S2, Other (very tender over palpation of left and right parasternal regions). No: Gallop, Murmur Respiratory: Yes: Regular, CTA Bilaterally. No: Accessory Muscle Use, Rales, Wheezes Extremities: No: Cold Edema: No Neurological: Yes: Alert. No: Seizure Psychiatric: No: Agitated Labs: CBC, BMP 05/09/17 06:58 05/09/17 06:58 ekg: nsr, inf q's similar to priors. cxr: no acute pathology, lt lower lung zone not well visualized. repeat cxr 05/09: persistent atelectasis/infiltrates at left base. hiatal hernia. C 12/2014--3vD (cabg after this) Echo 04/2017: nl lv/rv size/fn. 1+ mac. 1+ mr. mild-mod tr. rvsp nl. Echo 12/2014: nl LV size, nl overall EF; basal inferolat and bozda-nw-whb IW hypo; conc LVH; nl RV; valves WNL; no pulm HTN Assessment/Plan 82 year old female with history of CAD (s/p 3 vessel CABG in 2015), HTN, hyperlipidemia, chronic bilateral LE edema, recurrent urinary incontinence and dementia who presents with cp. CP, cad s/p cabg - troponins negative. Ekg without acute ischemic changes. No recurrence of chest discomfort. - exact details of cp, and of prior fall (i.e. ? blunt injury to chest) unclear , due to pt poor memory - ? 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
--- NOTE | 2017-05-09 11:24 | DS ---
Physical Examination Vital Signs: Vital Signs Temperature 98.6 F 05/09/17 05:37 Pulse Rate 87 05/09/17 05:37 Respiratory Rate 20 05/09/17 05:37 Blood Pressure 133/68 05/09/17 05:37 O2 Sat by Pulse Oximetry (%) 96 05/08/17 22:00 Findings/Remarks: The patient is an 82 year old female with a significant PMH of CAD (s/p 3 vessel CABG in 2016), anemia, HTN, hyperlipidemia, chronic bilateral LE edema, recurrent urinary incontinence who presents to the emergency department from [address] [place] [address] with an episode of chest pain in the morning and for evaluation of left arm skin ulceration s/p fall 2 days prior to ER visit. The patient described her chest pain as a 30 minute episode of aching left sided chest discomfort, about 4/10 in severity with associated shortness of breath, non radiating / no diaphoresis / subsided without treatment. Once at ER denied any chest pain or shortness of breath. The patients home health aide also reported that the patient fell onto her walker about 2 days ago while getting up from her chair, sustaining a left forearm wound and bruising and left leg bruising. The patient states she has not had her left arm wound treated since the fall. C/O of pain consistent with fall injury. Patient is confused and unreliable historian - in view of extensive cardiac hx - Cardiology eval done during hospital stay. Complaints more consistent with fall and doubtful cardiac in origin. Left arm abrasion evaluated by ID and good response with ABX.-- will arrange for d/c home with topical tx and follow up. Constitutional: Yes: Well Nourished, No Distress, Calm Eyes: Yes: Conjunctiva Clear, EOM Intact HENT: Yes: Atraumatic, Normocephalic Neck: Yes: Supple, Trachea Midline Cardiovascular: Yes: Regular Rate and Rhythm Respiratory: Yes: CTA Bilaterally Gastrointestinal: Yes: Normal Bowel Sounds, Soft ...Rectal Exam: Yes: Deferred Renal/: Yes: WNL Breast(s): Yes: WNL Musculoskeletal: Yes: Back Pain, Joint Swelling Extremities: Yes: Erythema (distal both LE -- chronic) Edema: LLE: Trace, RLE: Trace Peripheral Pulses WNL: Yes Integumentary: Yes: WNL Neurological: Yes: Alert, Oriented, Confusion, Pre-Existing Deficit Psychiatric: Yes: Alert, Oriented Labs: CBC, BMP 05/09/17 06:58 05/09/17 06:58 Discharge Summary Reason For Visit: CELLULITIS Current Active Problems Atypical chest pain (Acute) Cellulitis (Acute) HTN (hypertension) (Acute) Hyperlipemia (Acute) Lymphedema of both lower extremities (Acute) Condition: Improved - Instructions Disposition: HOME - Home Medications Comprehensive Discharge Medication List: Ambulatory Orders Atorvastatin Ca [Lipitor] 40 mg PO HS 10/16/15 Folic Acid 1 mg PO DAILY 10/16/15 Furosemide 20 mg PO DAILY 10/16/15 Metoprolol Tartrate 25 mg PO DAILY 10/16/15 Potassium Chloride 20 meq PO DAILY 10/16/15 Acetaminophen [Tylenol] 500 mg PO BID PRN 05/05/17 Aspirin [Aspirin EC] 325 mg PO DAILY 05/05/17 Famotidine [Pepcid -] 40 mg PO DAILY 05/05/17
[2017-05-09 15:07] VITALS: BP 113/57; PULSE 93; TEMP 97.8
== END 2017-05-09 15:05 | disposition home health service (06) | DRG 603 ==
LOC: JER 11:28 → JERBED 16:34 → J6S 18:15
PROVIDERS: ADMIT Family Medicine; ATTEND Family Medicine
DX: L03.114 Cellulitis of left upper limb (principal); F05 Delirium due to known physiological condition; I25.10 Atherosclerotic heart disease of native coronary artery without angina pectoris; R07.89 Other chest pain; Z95.1 Presence of aortocoronary bypass graft; D64.9 Anemia, unspecified; I10 Essential (primary) hypertension; E78.5 Hyperlipidemia, unspecified; Z96.653 Presence of artificial knee joint, bilateral; I89.0 Lymphedema, not elsewhere classified; F03.90 Unspecified dementia, unspecified severity, without behavioral disturbance, psychotic disturbance, mood disturbance, and anxiety; R32 Unspecified urinary incontinence; K44.9 Diaphragmatic hernia without obstruction or gangrene
CPT/HCPCS: 36415; 71045-TC-FY; 80048; 80053; 80061; 82550; 82962; 83721; 83735; 84100; 84484; 85025; 85027; 85610; 85730; 87040; 87086; 93005; 93010; 93306-TC; 97116-GP; 97161-GP; 99283-25

== ENCOUNTER 2017-12-27 07:13 | Inpatient (IN) | payer OTHER, BC ==
[2017-12-27 07:33] VITALS: BMI 26.5
--- NOTE | 2017-12-27 07:51 | PDOC ---
History of Present Illness <Casa Nash - Last Filed: 12/27/17 12:05> - General Exam Limitations: No Limitations <Mo Gu - Last Filed: 12/27/17 13:30> - General Chief Complaint: Chest Pain Stated Complaint: CHEST PAIN Time Seen by Provider: 12/27/17 07:39 - History of Present Illness Initial Comments: 12/27/17 09:39 The patient is a 82 year old female, with a significant PMH of triple bypass, lymphedema, HTN, HDL, and anemia, who presents to the emergency department via EMS with chest pain that began yesterday. The patient states the non radiating pain is located to the right anterior chest wall with a severity of 5/10 that worsened today after taking a shower. She reports she was given aspirin by EMS. The patient's daughter states patient has been here before in 2014 for angina. The patient denies shortness of breath, headache and dizziness.Denies fever, chills, nausea, vomit, diarrhea and constipation. Denies dysuria, frequency, urgency and hematuria. Allergies: NKDA Past surgical history: Bilateral TKR, shoulder replacement Social history: None reported PCP: Dr. Faith Donato (Mo Gu) Past History - Past Medical History Anemia: Yes Cardiac Disorders: Yes CVA: No COPD: No CHF: Yes Disorders: Yes (INCONTINENT) HTN: Yes Hypercholesterolemia: Yes - Surgical History Orthopedic Surgery: Yes (BILAT TKR, SHOULDER REPLACEMENT) - Suicide/Smoking/Psychosocial Hx Smoking History: Unknown if ever smoked Have you smoked in the past 12 months: No Information on smoking cessation initiated: No Hx Alcohol Use: No Drug/Substance Use Hx: No Substance Use Type: None Hx Substance Use Treatment: No <Casa Nash - Last Filed: 12/27/17 12:05> <Mo Gu - Last Filed: 12/27/17 13:30> - Past Medical History Allergies/Adverse Reactions: Allergies Allergy/AdvReac Type Severity Reaction Status Date / Time No Known Allergies Allergy Verified 12/27/17 07:29 Home Medications: Ambulatory Orders Atorvastatin Ca [Lipitor] 40 mg PO HS 10/16/15 Potassium Chloride 20 meq PO DAILY 10/16/15 Acetaminophen [Tylenol] 500 mg PO Q6H PRN 05/05/17 Aspirin Coated [Ecotrin -] 81 mg PO DAILY tablet.ec 05/09/17 Folic Acid - 1 mg PO DAILY tablet 05/09/17 Furosemide [Lasix -] 20 mg PO DAILY tablet 05/09/17 Ascorbate Calcium [Vitamin C] 500 mg PO DAILY 12/27/17 Ferrous Sulfate 325 mg PO TID 12/27/17 Galantamine HBr [Razadyne ER] 24 mg PO DAILY 12/27/17 Metoprolol Tartrate [Lopressor -] 25 mg PO DAILY 12/27/17 Omeprazole 20 mg PO BID 12/27/17 Review of Systems <Casa Nash - Last Filed: 12/27/17 12:05> - Review of Systems Able to Perform ROS?: Yes <Mo Gu - Last Filed: 12/27/17 13:30> - Review of Systems Comments:: 12/27/17 09:40 CONSTITUTIONAL: No fever, no chills, no fatigue EYES: No visual changes ENT: No ear pain, no sore throat CARDIOVASCULAR: +chest pain. No palpitations RESPIRATORY: No cough, no SOB GI: No abdominal pain, no nausea, no vomiting, no constipation, no diarrhea GENITOURINARY: No dysuria, no frequency, no hematuria MUSKULOSKELETAL: No backpain, no joint pain, no myalgias SKIN: +Bilateral lower extremity swelling NEURO: No headache (Mo Gu) *Physical Exam <Casa Nash - Last Filed: 12/27/17 12:05> <Mo Gu - Last Filed: 12/27/17 13:30> - Vital Signs Last Vital Signs Temp Pulse Resp BP Pulse Ox 97.8 F 68 18 107/59 L 100 12/27/17 09:52 12/27/17 09:52 12/27/17 09:52 12/27/17 09:52 12/27/17 09:52 - Physical Exam Comments: 12/27/17 09:41 CONSTITUTIONAL: +Alert and oriented to time and place only. Well-nourished; in no apparent distress HEAD: Normocephalic; atraumatic EYES: PERRL; EOM intact ENMT:External appears normal; normal oropharynx NECK: Supple; non-tender; no cervical lymphadenopathy CARD:+Reproductive right chest tenderness diffusely. +2-6 systolic murmur. RESP:+Well healed sternotomy scar.Normal chest excursion with respiration; breath sounds clear and equal bilaterally; no wheezes, rhonchi, or rales ABD: Soft, non-distended; non-tender; no palpable organomegaly, no palpable hernias EXT:+Significant bilateral lymphedema with minimal erythema to the the tibia and right lower extremity around the ankle joints. SKIN: +Left supraclavicular scar with visible externalize stitch. (Mo Gu) Heart Score/ECG Review - History History: Moderately suspicious - Electrocardiogram EKG: Non specific repolarization disturbance - Age Age: >/= 65 - Risk Factors Risk Factors Heart Score: Yes Hx Hypercholesterolemia, Yes Hx Hypertension Based on the list above the patient has:: 1-2 risk factors - Troponin Troponin: </= normal limit - Score Heart Score - Total: 5 <Casa Nash - Last Filed: 12/27/17 12:05> ED Treatment Course - LABORATORY CBC & Chemistry Diagram: 12/27/17 08:30 12/27/17 09:35 <Casa Nash - Last Filed: 12/27/17 12:05> - LABORATORY CBC & Chemistry Diagram: 12/27/17 08:30 12/27/17 09:35 <Mo Gu - Last Filed: 12/27/17 13:30> - ADDITIONAL ORDERS Additional order review: Laboratory Results 12/27/17 12/27/17 12/27/17 09:35 08:30 08:30 PT with INR INR D-Dimer 459 Sodium 143 Cancelled Potassium 4.3 Cancelled Chloride 110 H Cancelled Carbon Dioxide 25 Cancelled Anion Gap 8 Cancelled BUN 23 H Cancelled Creatinine 0.6 Cancelled Creat Clearance w eGFR > 60 Cancelled Random Glucose 76 Cancelled Calcium 8.4 L Cancelled Total Bilirubin 0.3 Cancelled AST 12 L Cancelled ALT 17 Cancelled Alkaline Phosphatase 97 Cancelled Creatine Kinase 81 Cancelled Troponin I < 0.02 Cancelled Total Protein 6.2 L Cancelled Albumin 3.1 L Cancelled 12/27/17 08:30 PT with INR 12.40 INR 1.05 D-Dimer Sodium Potassium Chloride Carbon Dioxide Anion Gap BUN Creatinine Creat Clearance w eGFR Random Glucose Calcium Total Bilirubin AST ALT Alkaline Phosphatase Creatine Kinase Troponin I Total Protein Albumin 10/31/18 08:30 RBC 4.72 MCV 84.2 MCHC 32.6 RDW 23.7 H MPV 9.9 Neutrophils % 70.3 Lymphocytes % 19.9 Monocytes % 8.1 Eosinophils % 0.6 D Basophils % 1.1 - Medications Given in the ED: ED Medications Discontinued Medications Generic Name Dose Route Start Last Admin Trade Name Freq PRN Reason Stop Dose Admin Nitroglycerin 1 inch 12/27/17 08:11 12/27/17 08:57 Nitro-Bid 2% Paste - TD 12/27/17 08:12 1 inch ONCE ONE Administration Medical Decision Making <Casa Nash - Last Filed: 12/27/17 12:05> <Mo Gu - Last Filed: 12/27/17 13:30> - Medical Decision Making 12/27/17 11:13 82-year-old female with history of CAD (status post CABG in 2014) vascular dementia presents with atraumatic right-sided chest discomfort relieved by transdermal nitroglycerin. Patient received 325 mg of aspirin by mouth by EMS prior to arrival. In the ED, EKG revealed normal sinus rhythm at 61, left axis deviation, Q waves in 3 and aVF, poor R-wave progression in the precordial leads which appears unchanged from previous EKG dated April 2017. Chest x-ray reveals cardiomegaly but no other acute pathology. First set of cardiac enzymes is within normal limit. Patient received an inch of transdermal nitroglycerin which completely resolved her pain. At this time, pts heart score is 5; patient will be placed on telemetry/observation for serial cardiac enzymes and cardiac evaluation. (Casa Nash) 12/27/17 11:[address] Bryant. Awaiting call back. 12/27/17 12:03 Dr. Bryant called back and spoke to Dr. Nash regarding patient. 12/27/17 13:[address] Davies regarding patients case. (Mo Gu) *DC/Admit/Observation/Transfer - Discharge Dispostion Decision to Admit order: Yes <Casa Nash - Last Filed: 12/27/17 12:05> <Mo Gu - Last Filed: 12/27/17 13:30> Diagnosis at time of Disposition: Chest pain Qualifiers: Chest pain type: unspecified Qualified Code(s): R07.9 - Chest pain, unspecified - Discharge Dispostion Condition at time of disposition: Fair - Attestations Scribe Attestion: 12/27/17 09:42 Documentation prepared by Mo Gu, acting as medical referral coordinator for Casa Nash MD. (Mo Gu) Physician Attestion: 12/27/17 11:12 The documentation was prepared by the scribe under my direct supervision. I have reviewed the documentation which correctly represents the findings, medical decision-making and critical action taken by me. (Casa Nash)
[2017-12-27] MEDS ORDERED: NITROGLYCERIN 2% OINTMENT - 1GM PACKET TD ONE ×2 (08:11→08:50)
[2017-12-27 08:43] LABS: BASO % 1.1 % (0-2.0); EOS % 0.6 % (0-4.5); HEMATOCRIT 39.7 % (32.4-45.2); LYMPH % 19.9 % (8-40); MCH 27.5 pg (25.7-33.7); MCHC 32.6 g/dl (32.0-36.0); MEAN CELL VOLUME 84.2 fl (80-96); MEAN PLT VOLUME 9.9 fl (7.5-11.1); MONO % 8.1 % (3.8-10.2); NEUT % 70.3 % (42.8-82.8); PLATELET COUNT 194 K/MM3 (134-434); RBC 4.72 M/mm3 (3.60-5.2); RDW 23.7 % (11.6-15.6); WHITE BLOOD COUNT 4.8 K/mm3 (4.0-10.0)
[2017-12-27 08:59] LABS: INR 1.05 (0.83-1.09); PROTHROMBIN TIME (PATIENT) 12.4 SEC (9.7-13.0)
[2017-12-27 10:23] LABS: ALBUMIN 3.1 g/dl (3.4-5.0); ALK PHOS 97 U/L (45-117); ANION GAP 8 MMOL/L (8-16); BILIRUBIN,TOTAL 0.3 mg/dL (0.2-1); BLOOD UREA NITROGEN 23 mg/dL (7-18); CALCIUM 8.4 mg/dL (8.5-10.1); CHLORIDE 110 mmol/L (98-107); CO2 25 mmol/L (21-32); CREATININE 0.6 mg/dL (0.55-1.3); GLUCOSE,RANDOM 76 mg/dL (74-106); POTASSIUM 4.3 mmol/L (3.5-5.1); SGOT/AST 12 U/L (15-37); SGPT/ALT 17 U/L (13-61); SODIUM 143 mmol/L (136-145); TOT PROT 6.2 g/dl (6.4-8.2)
[2017-12-27 10:29] LABS: ANISOCYTOSIS 3+; MACROCYTOSIS 0; PLATELET ESTIMATE NORMAL; TEAR DROP CELLS 1+
--- NOTE | 2017-12-27 10:57 | EKG ---
Test Reason : Blood Pressure : / mmHG Vent. Rate : 061 BPM Atrial Rate : 061 BPM P-R Int : 182 ms QRS Dur : 078 ms QT Int : 428 ms P-R-T Axes : 052 -33 018 degrees QTc Int : 430 ms POOR DATA QUALITY, INTERPRETATION MAY BE ADVERSELY AFFECTED NORMAL SINUS RHYTHM LEFT AXIS DEVIATION INFERIOR INFARCT (CITED ON OR BEFORE 16-OCT-2015) CANNOT RULE OUT ANTERIOR INFARCT , AGE UNDETERMINED ABNORMAL ECG WHEN COMPARED WITH ECG OF 05-MAY-2017 12:07, NO SIGNIFICANT CHANGE WAS FOUND Confirmed by EVER BRANDT, FABY ([id number]) on 12/27/2017 10:57:22 AM Referred By: Confirmed By:FABY CURTIS MD
--- NOTE | 2017-12-27 16:55 | CON.CARD ---
Cardiology Consult (text) - Consultation Consultation Note: CC: cp 82 year old female with a significant PMH of CAD (s/p 3 vessel CABG in 2016), dementia, anemia, HTN, hyperlipidemia, chronic bilateral LE edema, recurrent urinary incontinence who presents to the emergency department with an episode of chest pain. Yesterday she was sitting down and notices sharp poking pain in one spot near right lateral chest/axilla. Lasted for a few minutes. No other sxs. No sob palps dizzy loc pnd orthopnea. CP resolved now. Sees dr gray for cardio. 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 (short term memory) Cardiovascular: Yes: CAD, Hyperlipdemia, Other (Lymphedema) Reproductive: Yes: Postmenopausal ...: No Heme/Onc: Yes: Anemia - Past Surgical History Past Surgical History: Yes: CABG (triple) - Smoking History Smoking history: Never smoked family hx: nc ros: per hpi Home Medications Medication Instructions Recorded Atorvastatin Ca [Lipitor] 40 mg PO HS 10/16/15 Potassium Chloride 20 meq PO DAILY 10/16/15 Acetaminophen [Tylenol] 500 mg PO Q6H PRN 05/05/17 Aspirin Coated [Ecotrin -] 81 mg PO DAILY tablet.ec 05/09/17 Folic Acid - 1 mg PO DAILY tablet 05/09/17 Furosemide [Lasix -] 20 mg PO DAILY tablet 05/09/17 Ascorbate Calcium [Vitamin C] 500 mg PO DAILY 12/27/17 Ferrous Sulfate 325 mg PO TID 12/27/17 Galantamine HBr [Razadyne ER] 24 mg PO DAILY 12/27/17 Metoprolol Tartrate [Lopressor -] 25 mg PO DAILY 12/27/17 Omeprazole 20 mg PO BID 12/27/17 nad, calm jvd flat, neck supple ctab, nl effort rrr nl s1, s2, 2/6 sys murmur at sternal border + bs soft nt nd ext with trace LE edema, no cyanosis or clubbing + dp/pt, no carotid bruit alert, not oriented no jaundice, diaphoresis +right chest/axilla point tenderness Laboratory Last Values WBC 4.8 K/mm3 (4.0-10.0) 12/27/17 08:30 RBC 4.72 M/mm3 (3.60-5.2) 12/27/17 08:30 Hgb 13.0 GM/dL (10.7-15.3) 12/27/17 08:30 Hct 39.7 % (32.4-45.2) 12/27/17 08:30 MCV 84.2 fl (80-96) 12/27/17 08:30 MCH 27.5 pg (25.7-33.7) 12/27/17 08:30 MCHC 32.6 g/dl (32.0-36.0) 12/27/17 08:30 RDW 23.7 % (11.6-15.6) H 12/27/17 08:30 Plt Count 194 K/MM3 (134-434) 12/27/17 08:30 MPV 9.9 fl (7.5-11.1) 12/27/17 08:30 Absolute Neuts (auto) 3.4 K/mm3 (1.5-8.0) 12/27/17 08:30 Neutrophils % 70.3 % (42.8-82.8) 12/27/17 08:30 Lymphocytes % 19.9 % (8-40) 12/27/17 08:30 Monocytes % 8.1 % (3.8-10.2) 12/27/17 08:30 Eosinophils % 0.6 % (0-4.5) D 12/27/17 08:30 Basophils % 1.1 % (0-2.0) 12/27/17 08:30 Nucleated RBC % 0 % (0-0) 12/27/17 08:30 Hypochromia 0 12/27/17 08:30 Platelet Estimate Normal 12/27/17 08:30 Polychromasia 0 12/27/17 08:30 Poikilocytosis 1+ 12/27/17 08:30 Anisocytosis 3+ 12/27/17 08:30 Microcytosis 3+ 12/27/17 08:30 Macrocytosis 0 12/27/17 08:30 Tear Drop Cells 1+ 12/27/17 08:30 PT with INR 12.40 SEC (9.7-13.0) 12/27/17 08:30 INR 1.05 (0.83-1.09) 12/27/17 08:30 D-Dimer 459 ng/ml (0-500) 12/27/17 08:30 Sodium 143 mmol/L (136-145) 12/27/17 09:35 Potassium 4.3 mmol/L (3.5-5.1) 12/27/17 09:35 Chloride 110 mmol/L (98-107) H 12/27/17 09:35 Carbon Dioxide 25 mmol/L (21-32) 12/27/17 09:35 Anion Gap 8 MMOL/L (8-16) 12/27/17 09:35 BUN 23 mg/dL (7-18) H 12/27/17 09:35 Creatinine 0.6 mg/dL (0.55-1.3) 12/27/17 09:35 Creat Clearance w eGFR > 60 (>60) 12/27/17 09:35 Random Glucose 76 mg/dL (74-106) 12/27/17 09:35 Calcium 8.4 mg/dL (8.5-10.1) L 12/27/17 09:35 Total Bilirubin 0.3 mg/dL (0.2-1) 12/27/17 09:35 AST 12 U/L (15-37) L 12/27/17 09:35 ALT 17 U/L (13-61) 12/27/17 09:35 Alkaline Phosphatase 97 U/L (45-117) 12/27/17 09:35 Creatine Kinase 81 IU/L (26-192) 12/27/17 09:35 Troponin I < 0.02 ng/ml (0.00-0.05) 12/27/17 09:35 Total Protein 6.2 g/dl (6.4-8.2) L 12/27/17 09:35 Albumin 3.1 g/dl (3.4-5.0) L 12/27/17 09:35 ekg: sr nl intervals no ischemic changes cxr: no acute pathology Echo 04/2017: nl lv/rv size/fn. 1+ mac. 1+ mr. mild-mod tr. rvsp nl. Echo 12/2014: nl LV size, nl overall EF; basal inferolat and [id number] IW hypo; conc LVH; nl RV; valves WNL; no pulm HTN Assessment/Plan 82 year old female with a significant PMH of CAD (s/p 3 vessel CABG in 2016), dementia, anemia, HTN, hyperlipidemia, chronic bilateral LE edema, recurrent urinary incontinence who presents to the emergency department with an episode of chest pain. CP, cad s/p cabg: -atypical pain, +right chest/axilla point tenderness that reproduces her cp. ECG w/o ischemic changes. Trop neg x1. Monitor on tele and complete hermelindo given her cad hx, although current sxs seem MSK. -cont home cad meds asa, statin, bb htn - cont home toprol LE edema, venous insufficiency: - stable, con't home po lasix hld: -cont statin
[2017-12-27] MEDS ORDERED: ACETAMINOPHEN 500 MG TABLET (FP) PO PRN (19:56)
--- NOTE | 2017-12-27 20:00 | HP ---
Admitting History and Physical - Admission History of Present Illness: 82 year old female with a significant PMH of CAD (s/p 3 vessel CABG in 2016), dementia, anemia, HTN, hyperlipidemia, chronic bilateral LE edema, recurrent urinary incontinence who presents to the emergency department with an episode of chest pain. Yesterday she was sitting down and notices sharp poking pain in one spot near right lateral chest/axilla. Lasted for a few minutes. No other sxs. No sob palps dizzy loc pnd orthopnea. CP resolved now. Sees dr gray for cardio. 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: Other (short term memory) Cardiovascular: Yes: CAD, Hyperlipdemia, Other (Lymphedema) Heme/Onc: Yes: Anemia - Past Surgical History Past Surgical History: Yes: CABG (triple) - Smoking History Smoking history: Never smoked Have you smoked in the past 12 months: No - Alcohol/Substance Use Hx Alcohol Use: No - Social History ADL: Independent History of Recent Travel: No Home Medications - Allergies Allergies/Adverse Reactions: Allergies Allergy/AdvReac Type Severity Reaction Status Date / Time No Known Allergies Allergy Verified 12/27/17 07:29 - Home Medications Home Medications: Ambulatory Orders Atorvastatin Ca [Lipitor] 40 mg PO HS 10/16/15 Potassium Chloride 20 meq PO DAILY 10/16/15 Acetaminophen [Tylenol] 500 mg PO Q6H PRN 05/05/17 Aspirin Coated [Ecotrin -] 81 mg PO DAILY tablet.ec 05/09/17 Folic Acid - 1 mg PO DAILY tablet 05/09/17 Furosemide [Lasix -] 20 mg PO DAILY tablet 05/09/17 Ascorbate Calcium [Vitamin C] 500 mg PO DAILY 12/27/17 Ferrous Sulfate 325 mg PO TID 12/27/17 Galantamine HBr [Razadyne ER] 24 mg PO DAILY 12/27/17 Metoprolol Tartrate [Lopressor -] 25 mg PO DAILY 12/27/17 Omeprazole 20 mg PO BID 12/27/17 Review of Systems - Review of Systems Constitutional: reports: No Symptoms. denies: Chills, Fever Eyes: reports: No Symptoms HENT: reports: No Symptoms. denies: Difficult Swallowing, Ear Pain Neck: reports: No Symptoms Cardiovascular: reports: Chest Pain (right sided) Respiratory: reports: No Symptoms. denies: Cough, SOB, SOB on Exertion Gastrointestinal: reports: No Symptoms Genitourinary: reports: No Symptoms Breasts: reports: No Symptoms Reported Musculoskeletal: reports: No Symptoms Integumentary: reports: No Symptoms Neurological: reports: Pre-Existing Deficit Endocrine: reports: No Symptoms Hematology/Lymphatic: reports: No Symptoms Psychiatric: reports: No Symptoms Physical Examination Vital Signs: Vital Signs Temperature 99 F 12/27/17 18:31 Pulse Rate 78 12/27/17 18:31 Respiratory Rate 20 12/27/17 19:35 Blood Pressure 159/72 12/27/17 18:31 O2 Sat by Pulse Oximetry (%) 100 12/27/17 19:35 Labs: CBC, BMP 12/27/17 08:30 12/27/17 09:35 Problem List - Problems (1) CAD of autologous bypass graft Code(s): I25.810 - ATHEROSCLEROSIS OF CABG W/O ANGINA PECTORIS (2) 3-vessel CAD Code(s): I25.10 - ATHSCL HEART DISEASE OF [place] CORONARY ARTERY W/O ANG PCTRS (3) Chest pain Code(s): R07.9 - CHEST PAIN, UNSPECIFIED Qualifiers: Chest pain type: unspecified Qualified Code(s): R07.9 - Chest pain, unspecified (4) Atypical chest pain Code(s): R07.89 - OTHER CHEST PAIN (5) HTN (hypertension) Code(s): I10 - ESSENTIAL (PRIMARY) HYPERTENSION (6) Hyperlipemia Code(s): E78.5 - HYPERLIPIDEMIA, UNSPECIFIED (7) Lymphedema of both lower extremities Code(s): I89.0 - LYMPHEDEMA, NOT ELSEWHERE CLASSIFIED Assessment/Plan 82 year old female with a significant PMH of CAD (s/p 3 vessel CABG in 2016), dementia, anemia, HTN, hyperlipidemia, chronic bilateral LE edema, recurrent urinary incontinence who presents to the emergency department with an episode of chest pain. # chest pain / atypical in pte s/p CABG -atypical pain, +right chest/axilla point tenderness that reproduces her cp. -EKG no ischemic changes. -Trop neg x1. - obs -telemetry / Cardio consult appreciated well known to Dr Gray - continue home meds # HTN - cont home toprol # LE edema, venous insufficiency: - stable, con't home po lasix # HLD - statin # Dementia - galantamine / folic acid / # Anemia, hx on FeSo4 H/H WNL
[2017-12-27] MEDS: FERROUS SO4 325 MG TABLET (FP) PO SCH (21:24)
[2017-12-27] MEDS ORDERED: ATORVASTATIN CA 40 MG TABLET (FP) PO SCH (22:00)
[2017-12-28] MEDS ORDERED: HALOPERIDOL LACTATE 5 MG/ML IM ONE (00:30)
[2017-12-28] MEDS: FERROUS SO4 325 MG TABLET (FP) PO SCH (05:24)
[2017-12-28 08:07] VITALS: BP 148/68; PULSE 74; TEMP 98.6
[2017-12-28] MEDS ORDERED: GALANTAMINE HBR 24 MG PO SCH (10:00)
[2017-12-28] MEDS ORDERED: PANTOPRAZOLE 40 MG TABLET (FP) PO SCH (10:00)
[2017-12-28] MEDS ORDERED: METOPROLOL TARTRATE 25 MG TABLET (FP) PO SCH (10:00)
[2017-12-28] MEDS ORDERED: POTASSIUM CHLORIDE TABS 20 MEQ TABLET.ER (FP) PO SCH (10:00)
[2017-12-28] MEDS ORDERED: FUROSEMIDE 20 MG TABLET (FP) PO SCH (10:00)
[2017-12-28] MEDS ORDERED: FOLIC ACID 1 MG TABLET (FP) PO SCH (10:00)
[2017-12-28] MEDS ORDERED: ASPIRIN COATED 81 MG TABLET.EC PO SCH (10:00)
[2017-12-28] MEDS ORDERED: ASCORBIC ACID 500 MG TABLET (FP) PO SCH (10:00)
--- NOTE | 2017-12-28 10:04 | DS ---
Physical Examination Vital Signs: Vital Signs Temperature 98.6 F 12/28/17 08:07 Pulse Rate 74 12/28/17 08:07 Respiratory Rate 20 12/28/17 08:07 Blood Pressure 148/68 12/28/17 08:07 O2 Sat by Pulse Oximetry (%) 95 12/28/17 05:00 Constitutional: Yes: Well Nourished Eyes: Yes: Conjunctiva Clear HENT: Yes: Atraumatic, Normocephalic Neck: Yes: Supple, Trachea Midline Cardiovascular: Yes: Regular Rate and Rhythm Respiratory: Yes: Regular, CTA Bilaterally Gastrointestinal: Yes: Normal Bowel Sounds, Soft ...Rectal Exam: Yes: Deferred Breast(s): Yes: WNL Musculoskeletal: Yes: WNL Extremities: Yes: WNL Edema: Yes Edema: LLE: 1+, RLE: 1+ Peripheral Pulses WNL: Yes Integumentary: Yes: WNL Neurological: Yes: Alert ...Motor Strength: WNL Psychiatric: Yes: Alert Labs: CBC, BMP 12/27/17 08:30 12/27/17 09:35 Discharge Summary Reason For Visit: CHEST PAIN Current Active Problems Chest pain (Acute) CAD of autologous bypass graft (Acute) 3-vessel CAD (Acute) Hospital Course: Pt admitted for chest pain. TNI neg. Chest pain resolved. [facility]. Condition: Fair - Instructions Referrals: Faith Donato [Primary Care Provider] - Disposition: HOME - Home Medications Comprehensive Discharge Medication List: Ambulatory Orders Atorvastatin Ca [Lipitor] 40 mg PO HS 10/16/15 Potassium Chloride 20 meq PO DAILY 10/16/15 Acetaminophen [Tylenol] 500 mg PO Q6H PRN 05/05/17 Aspirin Coated [Ecotrin -] 81 mg PO DAILY tablet.ec 05/09/17 Folic Acid - 1 mg PO DAILY tablet 05/09/17 Furosemide [Lasix -] 20 mg PO DAILY tablet 05/09/17 Ascorbate Calcium [Vitamin C] 500 mg PO DAILY 12/27/17 Ferrous Sulfate 325 mg PO TID 12/27/17 Galantamine HBr [Razadyne ER] 24 mg PO DAILY 12/27/17 Metoprolol Tartrate [Lopressor -] 25 mg PO DAILY 12/27/17 Omeprazole 20 mg PO BID 12/27/17
--- NOTE | 2017-12-28 11:15 | PN ---
Progress Note (short form) - Note Progress Note: s: no cp sob palps dizzy, feels at her baseline o: Vital Signs Period Temp Pulse Resp BP Sys/Rosenberg Pulse Ox Last 24 Hr 98 F-99.6 F 73-85 16-20 122-159/54-78 95-100 nad, calm jvd flat, neck supple ctab, nl effort rrr nl s1, s2, 2/6 sys murmur at sternal border + bs soft nt nd ext with trace LE edema, no cyanosis or clubbing alert no jaundice, diaphoresis Current Medications Generic Name Dose Route Start Last Admin Trade Name Freq PRN Reason Stop Dose Admin Acetaminophen 500 mg 12/27/17 19:56 Tylenol - PO Q6H PRN PAIN LEVEL 1 - 3 Ascorbic Acid 500 mg 12/28/17 10:00 12/28/17 10:25 Vitamin C - PO 500 mg DAILY JEFFERSON Administration Aspirin 81 mg 12/28/17 10:00 12/28/17 10:24 Ecotrin - PO 81 mg DAILY JEFFERSON Administration Atorvastatin Calcium 40 mg 12/27/17 22:00 12/27/17 21:24 Lipitor - PO 40 mg HS JEFFERSON Administration Ferrous Sulfate 325 mg 12/27/17 22:00 12/28/17 05:24 Feosol - PO 325 mg TID JEFFERSON Administration Folic Acid 1 mg 12/28/17 10:00 12/28/17 10:24 Folic Acid - PO 1 mg DAILY JEFFERSON Administration Furosemide 20 mg 12/28/17 10:00 12/28/17 10:25 Lasix - PO 20 mg DAILY JEFFERSON Administration Metoprolol Tartrate 25 mg 12/28/17 10:00 12/28/17 10:25 Lopressor - PO 25 mg DAILY JEFFERSON Administration Non-Formulary Medication 24 mg 12/28/17 10:00 Galantamine Hbr [Razadyne Er] PO DAILY JEFFERSON Pantoprazole Sodium 40 mg 12/28/17 10:00 12/28/17 10:25 Protonix - PO 40 mg DAILY JEFFERSON Administration Potassium Chloride 20 meq 12/28/17 10:00 12/28/17 10:25 K-Dur - PO 20 meq DAILY JEFFERSON Administration CBC, BMP 12/27/17 08:30 12/27/17 09:35 ekg: sr nl intervals no ischemic changes cxr: no acute pathology Echo 04/2017: nl lv/rv size/fn. 1+ mac. 1+ mr. mild-mod tr. rvsp nl. Echo 12/2014: nl LV size, nl overall EF; basal inferolat and [id number] IW hypo; conc LVH; nl RV; valves WNL; no pulm HTN tele: sr Assessment/Plan 82 year old female with a significant PMH of CAD (s/p 3 vessel CABG in 2016), dementia, anemia, HTN, hyperlipidemia, chronic bilateral LE edema, recurrent urinary incontinence who presents to the emergency department with an episode of chest pain. CP, cad s/p cabg: -atypical pain, +right chest/axilla point tenderness that reproduces her cp. ECG w/o ischemic changes. Trop neg x3. Seemed MSK pain, not cardiac. -cont home cad meds asa, statin, bb htn - cont home toprol LE edema, venous insufficiency: - stable, con't home po lasix hld: -cont statin cardiac thompson ok for dc
--- NOTE | 2017-12-28 14:47 | EKG ---
Test Reason : Blood Pressure : / mmHG Vent. Rate : 076 BPM Atrial Rate : 076 BPM P-R Int : 176 ms QRS Dur : 084 ms QT Int : 374 ms P-R-T Axes : 063 -17 058 degrees QTc Int : 420 ms NORMAL SINUS RHYTHM POSSIBLE ANTERIOR INFARCT (CITED ON OR BEFORE 16-OCT-2015) ABNORMAL ECG WHEN COMPARED WITH ECG OF 27-DEC-2017 07:30, CRITERIA FOR INFERIOR INFARCT ARE NO LONGER PRESENT Confirmed by LINA RING MD ([id number]) on 12/28/2017 2:46:59 PM Referred By: Confirmed By:LINA RING MD
== END 2017-12-28 12:04 | disposition home or self-care (01) | DRG 313 ==
LOC: JER 07:13 → JERBED 12:05 → J4W 17:50 → OBSVTOIN 21:04
PROVIDERS: ADMIT Family Medicine; ATTEND Family Medicine
DX: R07.89 Other chest pain (principal); I10 Essential (primary) hypertension; E78.5 Hyperlipidemia, unspecified; D64.9 Anemia, unspecified; Z96.653 Presence of artificial knee joint, bilateral; I25.10 Atherosclerotic heart disease of native coronary artery without angina pectoris; F01.50 Vascular dementia, unspecified severity, without behavioral disturbance, psychotic disturbance, mood disturbance, and anxiety; R32 Unspecified urinary incontinence; I89.0 Lymphedema, not elsewhere classified; I87.2 Venous insufficiency (chronic) (peripheral); Z95.1 Presence of aortocoronary bypass graft; Z78.0 Asymptomatic menopausal state
CPT/HCPCS: 36415; 71045-TC-FY; 80053; 82550; 82553; 84484; 85025; 85379; 85610; 93005; 93010; 97116-GP; 97161-GP; 99285-25; G0378

== ENCOUNTER 2019-09-23 11:40 | Inpatient (IN) | payer OTHER, BC ==
--- NOTE | 2019-09-23 12:14 | PDOC ---
History of Present Illness - General Stated Complaint: RESPIRATORY Time Seen by Provider: 09/23/19 11:58 - History of Present Illness Initial Comments: 09/23/19 12:39 Hx:provided by daughter at bedside 84 y/o F with hx of 3 vessel CABG (2016), HTN, chronic bilateral lymphedema, HLD, vascular dementia,CHF, presents to the ED with shortness of breath this morning at around 10 a.m. Aide found her short of breath while laying in bed and reports her O2 sat at the time as 80%. pt had no complaints of chest pain, fever,wheezing and does not use O2 at baseline. pt has sob with minimal exertion at baseline. Of note, pt fell 4 days ago from her bed, per daughter, there was no trauma to the head as reported by facility. Patient denies headache, vision change, palpitations, wheezing, nausea, vomiting, fevers, chills, chest pain, hematuria, BPR, abdominal pain, diarrhea, constipation, lightheadedness, weakness, sensory changes. PMHx: as noted above ROS: as noted SHx: Denies Etoh, IVDA, tobacco use Allergies: NKDA cardiology: Dr. Sandoval pcp: dr. haines ROS: GENERAL/CONSTITUTIONAL: No fever or chills. No weakness. HEAD, EYES, EARS, NOSE AND THROAT: No change in vision. No ear pain or discharge. No sore throat. CARDIOVASCULAR: shortness of breath RESPIRATORY: +cough, no wheezing or hemoptysis GASTROINTESTINAL: No nausea, vomiting, diarrhea or constipation. GENITOURINARY: No dysuria, frequency, or change in urination. MUSCULOSKELETAL: right sided rib pain SKIN: No rash NEUROLOGIC: No headache, vertigo, loss of consciousness, or change in strength/sensation. ENDOCRINE: No increased thirst. No abnormal weight change HEMATOLOGIC/LYMPHATIC: No anemia, easy bleeding, or history of blood clots. ALLERGIC/IMMUNOLOGIC: No hives or skin allergy. PE: GENERAL: alert and oriented to person HEAD: No signs of trauma, normocephalic, atraumatic EYES: PERRLA, EOMI, sclera anicteric, conjunctiva clear ENT: Auricles normal inspection, hearing grossly normal, nares patent, oropharynx clear without exudates. Moist mucosa NECK: Normal ROM, supple, no lymphadenopathy, JVD, or masses LUNGS: decreased breath sounds on the right lung base. mild crackles in left lung base.bruising on right side with tenderness over lower right ribs in the mid axillary line. HEART: Regular rate and rhythm, normal S1 and S2, no murmurs, rubs or gallops, peripheral pulses normal and equal bilaterally. ABDOMEN: Soft, nontender, normoactive bowel sounds. No guarding, no rebound. No masses EXTREMITIES : bilateral swelling.pitting edema 2+ bilateral feet. erythema in right lower al with blister, no warmth or open wounds. NEUROLOGICAL: Cranial nerves II through XII grossly intact. Normal speech, no focal sensorimotor deficits SKIN: Warm, Dry, normal turgor, no rashes or lesions noted 09/23/19 12:51 Past History - Medical History Allergies/Adverse Reactions: Allergies Allergy/AdvReac Type Severity Reaction Status Date / Time No Known Allergies Allergy Verified 12/27/17 07:29 Home Medications: Ambulatory Orders Galantamine HBr [Razadyne ER] 24 mg PO DAILY 12/27/17 Acetaminophen [Tylenol .Extra-Strength -] 500 mg PO Q6H PRN tablet 12/28/17 Atorvastatin Ca [Lipitor] 40 mg PO HS tablet 12/28/17 Folic Acid - 1 mg PO DAILY tablet 12/28/17 Metoprolol Tartrate [Lopressor -] 25 mg PO DAILY tablet 12/28/17 Potassium Chloride [K-Dur -] 20 meq PO DAILY tablet.er 12/28/17 Cyanocobalamin [Vitamin B12 -] 1 tab PO DAILY 11/19/18 Memantine HCl 10 mg PO BID 11/19/18 Sennosides/Docusate Sodium [Senexon-S Tablet] 2 tab PO HS PRN 11/19/18 Acetaminophen [Tylenol .Regular Strength -] 650 mg PO Q6H PRN tablet 09/30/19 Atorvastatin Ca [Lipitor] 40 mg PO HS tablet 09/30/19 Cyanocobalamin [Vitamin B12 -] 1,000 mcg PO DAILY tablet 09/30/19 Folic Acid - 1 mg PO DAILY tablet 09/30/19 Furosemide [Lasix -] 40 mg PO BID@0600,1400 #60 tablet 09/30/19 Memantine HCl [Namenda -] 10 mg PO BID tablet 09/30/19 Metoprolol Succinate [Toprol XL -] 25 mg PO DAILY tab.sr.24h 09/30/19 Potassium Chloride [K-Dur -] 20 meq PO DAILY #60 tablet.er 09/30/19 Sennosides [Senna -] 2 tab PO HS PRN tablet 09/30/19 Anemia: Yes Cardiac Disorders: Yes (triple bypass) CVA: No COPD: No CHF: Yes Diabetes: No Disorders: Yes (INCONTINENT) HTN: Yes Hypercholesterolemia: Yes - Surgical History Orthopedic Surgery: Yes (BILAT TKR, SHOULDER REPLACEMENT) - Immunization History Immunization Up to Date: No - Psycho-Social/Smoking History Smoking History: Unknown if ever smoked Have you smoked in the past 12 months: No - Substance Abuse Hx (Audit-C & DAST Scrn) How often the patient has a drink containing alcohol: Never Score: In Men: 4 or > Positive; In Women: 3 or > Positive: 0 Screen Result (Pos requires Nsg. Audit-10AR): Negative In the last yr the pt used illegal drug/Rx for NonMed reason: No Score: Yes response is considered Positive: 0 Screen Result (Positive result requires Nsg. DAST-10): Negative *Physical Exam - Vital Signs Last Vital Signs Temp Pulse Resp BP Pulse Ox 98.3 F 77 20 96/71 80 L 09/23/19 11:58 09/23/19 11:58 09/23/19 11:58 09/23/19 11:58 09/23/19 11:58 ED Treatment Course - LABORATORY CBC & Chemistry Diagram: 10/02/19 05:25 10/02/19 05:25 Medical Decision Making - Medical Decision Making 09/23/19 13:55 84 y/o F with hx of 3 vessel CABG (2015), HTN, chronic bilateral lymphedema, HLD, vascular dementia, presents to the ED with shortness of breath this morning at around 10 a.m. ddx: chf vs pneumonia vs acs pt on O2 nc at 3L with saturation of 100% bruising and tenderness of left ribs labs, cxr, ct chest, abd and pelvis 09/23/19 16:[address]'s pending. pt seen by dr. bobby, agrees with blood transfusion and lasix afterwards elevated bnp 09/23/19 16:51 pt admitted to tele Discharge - Discharge Information Problems reviewed: Yes Clinical Impression/Diagnosis: Pulmonary vascular congestion Anemia Qualifiers: Anemia type: unspecified type Qualified Code(s): D64.9 - Anemia, unspecified Condition: Stable Disposition: VNS/HOME HEALTH CARE - Follow up/Referral - Patient Discharge Instructions - Post Discharge Activity
[2019-09-23] MEDS ORDERED: SODIUM CHLORIDE 0.9% 500 ML INFUS.BAG IV ONE (12:58)
[2019-09-23 13:52] LABS: HEMATOCRIT 21.1 % (32.4-45.2); MCHC 29.1 g/dl (32.0-36.0); MEAN CELL VOLUME 62.3 fl (80-96); MEAN PLT VOLUME 10.1 fl (7.5-11.1); PLATELET COUNT 244 K/MM3 (134-434); RBC 3.38 M/mm3 (3.60-5.2); WHITE BLOOD COUNT 6.3 K/mm3 (4.0-10.0)
[2019-09-23 13:54] LABS: INR 1.08 (0.83-1.09); PROTHROMBIN TIME (PATIENT) 12.7 SEC (9.7-13.0)
[2019-09-23 13:56] LABS: ACTIVATED PTT 23.3 SECONDS (25.2-36.5)
[2019-09-23 14:02] LABS: MCH 18.1 pg (25.7-33.7)
[2019-09-23 14:05] LABS: HEMOGLOBIN 6.1 GM/dL (10.7-15.3)
[2019-09-23 14:14] LABS: ALBUMIN 3.1 g/dl (3.4-5.0); BILIRUBIN,TOTAL 0.6 mg/dL (0.2-1); CALCIUM 8.4 mg/dL (8.5-10.1); N-TERMINAL BNP 1080.8 pg/ml (5-450); POTASSIUM 3.8 mmol/L (3.5-5.1); TOT PROT 6.3 g/dl (6.4-8.2)
[2019-09-23 14:20] LABS: BLOOD UREA NITROGEN 17.1 mg/dL (7-18); CREATININE 0.8 mg/dL (0.55-1.3)
--- NOTE | 2019-09-23 14:53 | PDOC ---
Documentation entered by Devorah Og SCRIBE, acting as scribe for Sergey Sharpe MD. Sergey Sharpe MD: This documentation has been prepared by the Earle robertson Brenda, SCRIBE, under my direction and personally reviewed by me in its entirety. I confirm that the documentation accurately reflects all work, treatment, procedures, and medical decision making performed by me. Attending Attestation - Resident Resident Name: Landy Greenberg - ED Attending Attestation I have performed the following: I have examined & evaluated the patient, The case was reviewed & discussed with the resident, I agree w/resident's findings & plan, Exceptions are as noted - HPI HPI: 09/23/19 13:06 The patient is an 84 year old female with a significant PMH of 3 vessel CABG (2015), HTN, chronic bilateral lymphedema, HLD and vascular dementia who presents to the emergency department for evaluation of shortness of breath since this morning at 10:00am. As per daughter, on the bedside, the aide found the patient short of breath while laying in her bed with an oxygen sat of 80%. The patient is not on O2 at baseline. The patient denies chest pain, cough, leg swelling, headache and dizziness. Denies fever, chills, nausea, vomiting, diarrhea and constipation. Denies dysuria, frequency, urgency and hematuria. Allergies: NKA Social history: No reported hx of tobacco use, alcohol use or illicit drug use. - Physicial Exam PE: 09/23/19 14:59 Vitals: Triage Vital signs reviewed General Appearance: No acute distress, well nourished well developed, Head: Atraumatic, Cardiac: Regular rate and rhythym, Lungs: Crackles at the bases Abdomen: Soft, non distended, normal bowel sounds, non tender to palpation, ecchymosis to right flank Extremities: Full range of motion to all extremities, no cyanosis, clubbing, or edema Skin: Warm and dry, 2+ pitting edema bilaterally, slight redness to bilateral shins Neuro:, strength intact to all extremities, sensation intact to all extremities, Psych: Normal mood, normal affect - Critical Care Time Total Critical Care Time: 35 Critical Care Statement: The care of this patient involved high complexity decision making to prevent further life threatening deterioration of the patient's condition and/or to evaluate & treat vital organ system(s) failure or risk of failure. - Medical Decision Making 09/23/19 16:24 New hypoxia. Recent fall witnessed no head trauma. New anemia likely complicated by underlying CHF CT chest ordered. Will Treat anemia with 1 unit PRBC Patient require admission for blood transfusion with diuretic chasers given CHF picture. Antibiotics pending CT results Require admission for further management. Heart Score/ECG Review - ECG Impressions Comment:: 09/23/19 16:24 EKG performed at 1243 demonstrates normal sinus rhythm no ST elevations Interpreted by me. Discharge - Discharge Information Problems reviewed: Yes Clinical Impression/Diagnosis: Pulmonary vascular congestion Anemia Qualifiers: Anemia type: unspecified type Qualified Code(s): D64.9 - Anemia, unspecified - Follow up/Referral - Patient Discharge Instructions - Post Discharge Activity
--- NOTE | 2019-09-23 15:01 | CON.CARD ---
Cardiology Consult (text) - Consultation Consultation Note: CC: sob, hypoxia hpi: 84 year old female with a significant PMH of CAD (s/p 3 vessel CABG in 2016), dementia, anemia, HTN, hyperlipidemia, chronic bilateral LE edema, sent to ER from [facility] for sob and hypoxia. Pt confused, poor historian. Denies cp sob palps dizzy loc pnd orthopnea. Sees dr gray for cardio. 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) Cardiovascular: Yes: CAD, Hyperlipdemia, Other (Lymphedema) Reproductive: Yes: Postmenopausal ...: No Heme/Onc: Yes: Anemia - Past Surgical History Past Surgical History: Yes: CABG (triple) - Smoking History Smoking history: Never smoked family hx: nc ros: per hpi; all others nl Home Medications Medication Instructions Recorded Galantamine HBr [Razadyne ER] 24 mg PO DAILY 12/27/17 Acetaminophen [Tylenol 500 mg PO Q6H PRN tablet 12/28/17 .Extra-Strength -] Aspirin Coated [Ecotrin -] 81 mg PO DAILY tablet.ec 12/28/17 Atorvastatin Ca [Lipitor] 40 mg PO HS tablet 12/28/17 Folic Acid - 1 mg PO DAILY tablet 12/28/17 Metoprolol Tartrate [Lopressor -] 25 mg PO DAILY tablet 12/28/17 Potassium Chloride [K-Dur -] 20 meq PO DAILY tablet.er 12/28/17 Furosemide [Lasix -] 40 mg PO DAILY 09/10/18 Cyanocobalamin [Vitamin B12 -] 1 tab PO DAILY 11/19/18 Memantine HCl 10 mg PO BID 11/19/18 Sennosides/Docusate Sodium 2 tab PO HS PRN 11/19/18 [Senexon-S Tablet] Vital Signs Period Temp Pulse Resp BP Sys/Rosenberg Pulse Ox Last 24 Hr 98.3 F 76-82 20-20 96-135/49-71 80-100 nad, calm jvd flat, neck supple ctab, nl effort rrr nl s1, s2, 2/6 sys murmur at sternal border + bs soft nt nd ext with 1+LE edema bl, no cyanosis or clubbing + dp/pt, no carotid bruit alert, not oriented no jaundice, diaphoresis Laboratory Last Values WBC 6.3 K/mm3 (4.0-10.0) 09/23/19 11:15 RBC 3.38 M/mm3 (3.60-5.2) L 09/23/19 11:15 Hgb 6.1 GM/dL (10.7-15.3) L* 09/23/19 11:15 Hct 21.1 % (32.4-45.2) L D 09/23/19 11:15 MCV 62.3 fl (80-96) L 09/23/19 11:15 MCH 18.1 pg (25.7-33.7) L D 09/23/19 11:15 MCHC 29.1 g/dl (32.0-36.0) L 09/23/19 11:15 RDW 20.0 % (11.6-15.6) H 09/23/19 11:15 Plt Count 244 K/MM3 (134-434) D 09/23/19 11:15 MPV 10.1 fl (7.5-11.1) 09/23/19 11:15 Neutrophils % No Result Required. 09/23/19 11:15 Lymphocytes % No Result Required. 09/23/19 11:15 Nucleated RBC % 0 % (0-0) 09/23/19 11:15 PT with INR 12.70 SEC (9.7-13.0) 09/23/19 11:15 INR 1.08 (0.83-1.09) 09/23/19 11:15 PTT (Actin FS) 23.3 SECONDS (25.2-36.5) L 09/23/19 11:15 Sodium 143 mmol/L (136-145) 09/23/19 11:15 Potassium 3.8 mmol/L (3.5-5.1) 09/23/19 11:15 Chloride 109 mmol/L (98-107) H 09/23/19 11:15 Carbon Dioxide 28 mmol/L (21-32) 09/23/19 11:15 Anion Gap 6 MMOL/L (8-16) L 09/23/19 11:15 BUN 17.1 mg/dL (7-18) 09/23/19 11:15 Creatinine 0.8 mg/dL (0.55-1.3) 09/23/19 11:15 Est GFR (CKD-EPI)AfAm 77.37 09/23/19 11:15 Est GFR (CKD-EPI)NonAf 66.76 09/23/19 11:15 Random Glucose 83 mg/dL (74-106) 09/23/19 11:15 Lactic Acid 1.0 mmol/L (0.4-2.0) 09/23/19 11:15 Calcium 8.4 mg/dL (8.5-10.1) L 09/23/19 11:15 Total Bilirubin 0.6 mg/dL (0.2-1) 09/23/19 11:15 AST 17 U/L (15-37) 09/23/19 11:15 ALT 22 U/L (13-61) 09/23/19 11:15 Alkaline Phosphatase 111 U/L (45-117) 09/23/19 11:15 Troponin I 0.04 ng/ml (0.00-0.05) 09/23/19 11:57 B-Natriuretic Peptide 1080.8 pg/ml (5-450) H 09/23/19 11:15 Total Protein 6.3 g/dl (6.4-8.2) L 09/23/19 11:15 Albumin 3.1 g/dl (3.4-5.0) L 09/23/19 11:15 ekg: sr nl intervals no ischemic changes cxr: chf, b/l effs Echo 04/2017: nl lv/rv size/fn. 1+ mac. 1+ mr. mild-mod tr. rvsp nl. Echo 12/2014: nl LV size, nl overall EF; basal inferolat and [id number] IW hypo; conc LVH; nl RV; valves WNL; no pulm HTN Assessment/Plan 84 year old female with a significant PMH of CAD (s/p 3 vessel CABG in 2016), dementia, anemia, HTN, hyperlipidemia, chronic bilateral LE edema, sent to ER from [facility] for sob and hypoxia. sob/hypoxia, anemia, acute on chronic diastolic chf: -pt with congestion and effusions on cxr and significant le edema, likely contributing to her sob/hypoxia. She also has significant anemia with hgb in 6s. Would transfuse PRBCs and give iv lasix as well, 40 iv qd to start, monitor daily chem7 -anemia eval, GI consult -no signs acs, trend ce's -check updated echo -hypoxia improved with nasal canula CP, cad s/p cabg: -stable, as above -cont statin -hold home toprol due to low bp here -hold asa due to severe anemia htn -hold home toprol due to low bp here hld: -cont statin
[2019-09-23 17:28] LABS: LYMPH % 17.8 % (8-40); MONO % 5.6 % (3.8-10.2); NEUT % 75.7 % (42.8-82.8)
[2019-09-23 17:29] LABS: BASO % 0.8 % (0-2.0); EOS % 0.1 % (0-4.5)
[2019-09-23 17:30] LABS: ANISOCYTOSIS 2+; OVALOCYTE 1+; PLATELET ESTIMATE ADEQUATE
--- NOTE | 2019-09-23 17:48 | HP ---
Admitting History and Physical - Admission Chief Complaint: Acute shortness of breath History of Present Illness: This 84 yr old w/f with PMH of HTN, HLD, s/p 3 vessel CABG, chronic lymphedema, s/p bilateral knee replacement, s/p bilateral cataract surgery, vascular dementia admitted via ER with an acute shortness of breath, acute severe anemia, and pulmonary vascular congestion. 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) Cardiovascular: Yes: CAD, Hyperlipdemia, Other (Lymphedema) Pulmonary: No: Asthma, Bronchitis, Cancer, COPD, O2 Dependent, Pneumonia, Previously Intubated, Pulmonary Embolus, Pulmonary Fibrosis, Sleep Apnea, Other Gastrointestinal: No: Ascites, Cancer, Constipation, Crohn's Disease, Diverticulitis, Diverticulosis, Esophageal Varices, Gastritis, GERD, GI Bleed, Hemorrhoids, Hiatal Hernia, Inflamatory Bowel Disease, Irritable Bowel Disease, Pancreatitis, Peptic Ulcer Disease, Ulcerative Colitis, Other Hepatobiliary: No: Cirrhosis, Cholelithiasis, Cholecystitis, Choledocholithiasis, Hepatitis A, Hepatitis B, Hepatitis C, Other Renal/: No: Renal Failure, Renal Inusuff, BPH, Cancer, Hematuria, Hemodialysis, Neurogenic Bladder, Renal Calculi, UTI, Other Reproductive: No: Ectopic , Endometriosis, Fibroids, PID, Polycystic Ovary Syndrome, Postmenopausal, Other Heme/Onc: Yes: Anemia Infectious Disease: No: AIDS, C-Diff, Herpes Zoster, HIV, MRSA, STD's, Tuberculosis, VREF, Other Psych: No: Addictions, Anxiety, Bipolar, Depression, Panic, Psychosis, Schizophrenia, Other Musculoskeletal: No: Bursitis, Chronic low back pain, Hemiparesis, Hemiplegia, Osteoarthritis, Paraplegia, Other Rheumatology: No: Fibromyalgia, Gout, Lupus, Rheumatoid Arthritis, Sarcoidosis, Vasculitis, Other ENT: No: Allergic Rhinitis, Sinusitis, Other Endocrine: No: Rui's Disease, Paulette's Disease, Diabetes Insipidus, Diabetes Mellitus, Hyperparathyroidism, Hyperthyroidism, Hypothyroidism, Osteopenia, SIADH, Other Dermatology: No: Basal Cell, Cellulitis, Eczema, Melanoma, Psoriasis, Squamous Cell, Other - Past Surgical History Past Surgical History: Yes: CABG (triple) - Smoking History Smoking history: Unknown if ever smoked Have you smoked in the past 12 months: No - Alcohol/Substance Use Hx Alcohol Use: No - Social History Usual Living Arrangement: Yes: Assisted Living ADL: Independent History of Recent Travel: No Home Medications - Allergies Allergies/Adverse Reactions: Allergies Allergy/AdvReac Type Severity Reaction Status Date / Time No Known Allergies Allergy Verified 12/27/17 07:29 - Home Medications Home Medications: Ambulatory Orders Galantamine HBr [Razadyne ER] 24 mg PO DAILY 12/27/17 Acetaminophen [Tylenol .Extra-Strength -] 500 mg PO Q6H PRN tablet 12/28/17 Aspirin Coated [Ecotrin -] 81 mg PO DAILY tablet.ec 12/28/17 Atorvastatin Ca [Lipitor] 40 mg PO HS tablet 12/28/17 Folic Acid - 1 mg PO DAILY tablet 12/28/17 Metoprolol Tartrate [Lopressor -] 25 mg PO DAILY tablet 12/28/17 Potassium Chloride [K-Dur -] 20 meq PO DAILY tablet.er 12/28/17 Furosemide [Lasix -] 40 mg PO DAILY 09/10/18 Cyanocobalamin [Vitamin B12 -] 1 tab PO DAILY 11/19/18 Memantine HCl 10 mg PO BID 11/19/18 Sennosides/Docusate Sodium [Senexon-S Tablet] 2 tab PO HS PRN 11/19/18 Review of Systems - Review of Systems Constitutional: reports: Weakness Eyes: reports: No Symptoms HENT: reports: No Symptoms Neck: reports: No Symptoms Cardiovascular: reports: No Symptoms Respiratory: reports: SOB, SOB on Exertion Gastrointestinal: reports: No Symptoms Genitourinary: reports: No Symptoms Breasts: reports: No Symptoms Reported Musculoskeletal: reports: Muscle Weakness Integumentary: reports: Other (bilateral chronic lymphedema) Neurological: reports: No Symptoms Endocrine: reports: No Symptoms Hematology/Lymphatic: reports: No Symptoms Psychiatric: reports: Other (delirium) Physical Examination Vital Signs: Vital Signs Temperature 99.0 F 09/23/19 14:41 Pulse Rate 77 09/23/19 17:00 Respiratory Rate 20 09/23/19 17:00 Blood Pressure 106/53 L 09/23/19 17:00 O2 Sat by Pulse Oximetry (%) 100 09/23/19 17:16 Constitutional: Yes: Well Nourished, Calm, Mild Distress Eyes: Yes: Conjunctiva Clear, EOM Intact HENT: Yes: Atraumatic, Normocephalic Neck: Yes: Supple, Trachea Midline Cardiovascular: Yes: Regular Rate and Rhythm Respiratory: Yes: Diminished, SOB, SOB on Exertion Gastrointestinal: Yes: Normal Bowel Sounds, Soft ...Rectal Exam: Yes: Deferred Renal/: Yes: WNL Breast(s): Yes: WNL Musculoskeletal: Yes: Muscle Weakness Extremities: Yes: Other (bilateral chronic lymphedema) Edema: Yes Edema: LLE: 3+, RLE: 3+ Peripheral Pulses WNL: Yes Integumentary: Yes: Erythema (right lower leg) Neurological: Yes: Alert, Unsteady Gait, Weakness ...Motor Strength: WNL (generalized muscle weakness of all extremities) Psychiatric: Yes: Alert Labs: CBC, BMP 09/23/19 11:15 09/23/19 11:15 Imaging - Results Chest X-ray: Report Reviewed Cat Scan: Report Reviewed Other: Report Reviewed (lab data reviewed) Problem List - Problems (1) Shortness of breath Code(s): R06.02 - SHORTNESS OF BREATH (2) Pulmonary vascular congestion Code(s): R09.89 - OTH SYMPTOMS AND SIGNS INVOLVING THE CIRC AND RESP SYSTEMS (3) Bilateral pleural effusion Code(s): J90 - PLEURAL EFFUSION, NOT ELSEWHERE CLASSIFIED (4) Atelectasis Code(s): J98.11 - ATELECTASIS (5) Hiatal hernia Code(s): K44.9 - DIAPHRAGMATIC HERNIA WITHOUT OBSTRUCTION OR GANGRENE (6) Moderate tricuspid regurgitation Code(s): I07.1 - RHEUMATIC TRICUSPID INSUFFICIENCY (7) Acute on chronic diastolic CHF (congestive heart failure) Code(s): I50.33 - ACUTE ON CHRONIC DIASTOLIC (CONGESTIVE) HEART FAILURE (8) 3-vessel CAD Code(s): I25.10 - ATHSCL HEART DISEASE OF [place] CORONARY ARTERY W/O ANG PCTRS (9) Atypical chest pain Code(s): R07.89 - OTHER CHEST PAIN (10) CAD of autologous bypass graft Code(s): I25.810 - ATHEROSCLEROSIS OF CABG W/O ANGINA PECTORIS (11) Cellulitis Code(s): L03.90 - CELLULITIS, UNSPECIFIED Qualifiers: Site of cellulitis: extremity Site of cellulitis of extremity: upper extremity Laterality: left Qualified Code(s): L03.114 - Cellulitis of left upper limb (12) Chest pain Code(s): R07.9 - CHEST PAIN, UNSPECIFIED Qualifiers: Chest pain type: unspecified Qualified Code(s): R07.9 - Chest pain, unspecified (13) HTN (hypertension) Code(s): I10 - ESSENTIAL (PRIMARY) HYPERTENSION (14) Hyperlipemia Code(s): E78.5 - HYPERLIPIDEMIA, UNSPECIFIED (15) Lymphedema Code(s): I89.0 - LYMPHEDEMA, NOT ELSEWHERE CLASSIFIED (16) Lymphedema of both lower extremities Code(s): I89.0 - LYMPHEDEMA, NOT ELSEWHERE CLASSIFIED (17) Syncope Code(s): R55 - SYNCOPE AND COLLAPSE Qualifiers: Syncope type: unspecified Qualified Code(s): R55 - Syncope and collapse Assessment/Plan Assessment/plan: acute shortness of breath, acute exacerbation of anemia, acute on chronic diastolic CHF, mild to moderate tricuspid regurgitation, bilateral chronic lymphedema, large hiatal hernia, old compression fracture of T3, bilateral knee replacement, bilateral cataract surgery, s/p right shoulder replacement plus surgery on left shoulder; blood transfusion, IV Furosemide, oxygen 3L/min via nasal cannula, consult to GI, DVT/GI prophylaxis, out of bed in chair as tolerated, physical therapy.
[2019-09-23] MEDS ORDERED: POTASSIUM CHLORIDE TABS 20 MEQ TABLET.ER (FP) PO ONE (18:50)
[2019-09-23] MEDS ORDERED: PANTOPRAZOLE SODIUM 40 MG VIAL ONE (18:51)
[2019-09-23] MEDS: PANTOPRAZOLE SODIUM 40 MG VIAL IVPUSH SCH (18:55)
[2019-09-23] MEDS: POTASSIUM CHLORIDE TABS 20 MEQ TABLET.ER (FP) PO SCH (18:55)
[2019-09-23] MEDS ORDERED: SENNOSIDES 8.6MG TABLET (FP) PO PRN (22:00)
[2019-09-23] MEDS: MEMANTINE HCL 10 MG TABLET (FP) PO SCH (22:54)
[2019-09-23] MEDS: ATORVASTATIN CA 40 MG TABLET (FP) PO SCH (22:54)
[2019-09-24] MEDS ORDERED: FUROSEMIDE 40 MG/4 ML INJECTABLE VIAL ONE (00:09)
[2019-09-24] MEDS ORDERED: FUROSEMIDE 40 MG/4 ML INJECTABLE VIAL IVPUSH ONE (04:45)
[2019-09-24 08:37] LABS: BASO % 0.7 % (0-2.0); EOS % 0.2 % (0-4.5); HEMATOCRIT 32.1 % (32.4-45.2); HEMOGLOBIN 9.7 GM/dL (10.7-15.3); MCH 20.6 pg (25.7-33.7); MCHC 30.2 g/dl (32.0-36.0); MEAN CELL VOLUME 68.2 fl (80-96); MEAN PLT VOLUME 10.1 fl (7.5-11.1); MONO % 5.7 % (3.8-10.2); NEUT % 84.4 % (42.8-82.8); PLATELET COUNT 215 K/MM3 (134-434); RBC 4.71 M/mm3 (3.60-5.2); RDW 25.5 % (11.6-15.6); WHITE BLOOD COUNT 7.3 K/mm3 (4.0-10.0)
--- NOTE | 2019-09-24 09:02 | PN ---
Progress Note, Physician Chief Complaint: Patient seen and examined at the bedside in ICU, no acute events from last night, afebrile. History of Present Illness: This 84 yr old w/f with PMH of HTN, HLD, s/p 3 vessel CABG, chronic lymphedema, bilateral knee replacement, s/p bilateral cataract surgery, vascular dementia admitted via ER with an acute severe anemia, acute shortness of breath, acute on chronic diastolic CHF, large hiatal hernia, mild to moderate tricuspid regurgitation, interstitial vascular congestion with bilateral pleural effusion and bibasilar compressive atelectasis. - Current Medication List Current Medications: Active Medications Acetaminophen (Tylenol -) 650 mg PO Q6H PRN PRN Reason: PAIN LEVEL 4 - 6 Atorvastatin Calcium (Lipitor -) 40 mg PO HS [facility] Last Admin: 09/23/19 22:54 Dose: 40 mg Documented by: Cyanocobalamin (Vitamin B12 -) 1,000 mcg PO DAILY [facility] Enoxaparin Sodium (Lovenox -) 40 mg SQ DAILY [facility] Folic Acid (Folic Acid -) 1 mg PO DAILY [facility] Memantine (Namenda -) 10 mg PO BID [facility] Last Admin: 09/23/19 22:54 Dose: 10 mg Documented by: Metoprolol Succinate (Toprol Xl -) 25 mg PO DAILY [facility] Pantoprazole Sodium (Protonix Iv) 40 mg IVPUSH DAILY [facility] Last Admin: 09/23/19 18:55 Dose: 40 mg Documented by: Potassium Chloride (K-Dur -) 20 meq PO DAILY [facility] Last Admin: 09/23/19 18:55 Dose: 20 meq Documented by: Senna (Senna -) 2 tab PO HS PRN PRN Reason: CONSTIPATION - Objective Vital Signs: Vital Signs Temperature 98.4 F 09/24/19 06:45 Pulse Rate 86 09/24/19 08:21 Respiratory Rate 20 09/24/19 08:21 Blood Pressure 135/57 L 09/24/19 08:21 O2 Sat by Pulse Oximetry (%) 96 09/24/19 08:21 Constitutional: Yes: Well Nourished, Calm, Mild Distress Eyes: Yes: Conjunctiva Clear, EOM Intact HENT: Yes: Atraumatic, Normocephalic Neck: Yes: Supple, Trachea Midline Cardiovascular: Yes: Regular Rate and Rhythm Respiratory: Yes: Regular, Diminished, On Nasal O2, SOB, SOB on Exertion Gastrointestinal: Yes: Normal Bowel Sounds, Soft ...Rectal Exam: Yes: Deferred Genitourinary: Yes: Incontinence Breast(s): Yes: WNL Musculoskeletal: Yes: Muscle Weakness Extremities: Yes: WNL Edema: Yes Edema: LLE: 4+, RLE: 4+ Peripheral Pulses WNL: Yes Integumentary: Yes: WNL Neurological: Yes: Alert, Unsteady Gait, Weakness ...Motor Strength: LUE (generalized muscle weakness of all extremities) Psychiatric: Yes: Alert Labs: CBC, BMP 09/24/19 08:15 INR, PTT INR 1.08 (0.83-1.09) 09/23/19 11:15 - ....Imaging Other: Report Reviewed (lab data reviewed) Problem List - Problems (1) Shortness of breath Code(s): R06.02 - SHORTNESS OF BREATH (2) Pulmonary vascular congestion Code(s): R09.89 - OTH SYMPTOMS AND SIGNS INVOLVING THE CIRC AND RESP SYSTEMS (3) Bilateral pleural effusion Code(s): J90 - PLEURAL EFFUSION, NOT ELSEWHERE CLASSIFIED (4) Atelectasis Code(s): J98.11 - ATELECTASIS (5) Hiatal hernia Code(s): K44.9 - DIAPHRAGMATIC HERNIA WITHOUT OBSTRUCTION OR GANGRENE (6) Moderate tricuspid regurgitation Code(s): I07.1 - RHEUMATIC TRICUSPID INSUFFICIENCY (7) Acute on chronic diastolic CHF (congestive heart failure) Code(s): I50.33 - ACUTE ON CHRONIC DIASTOLIC (CONGESTIVE) HEART FAILURE (8) 3-vessel CAD Code(s): I25.10 - ATHSCL HEART DISEASE OF [place] CORONARY ARTERY W/O ANG PCTRS (9) Atypical chest pain Code(s): R07.89 - OTHER CHEST PAIN (10) CAD of autologous bypass graft Code(s): I25.810 - ATHEROSCLEROSIS OF CABG W/O ANGINA PECTORIS (11) Cellulitis Code(s): L03.90 - CELLULITIS, UNSPECIFIED Qualifiers: Site of cellulitis: extremity Site of cellulitis of extremity: upper extremity Laterality: left Qualified Code(s): L03.114 - Cellulitis of left upper limb (12) Chest pain Code(s): R07.9 - CHEST PAIN, UNSPECIFIED Qualifiers: Chest pain type: unspecified Qualified Code(s): R07.9 - Chest pain, unspecified (13) HTN (hypertension) Code(s): I10 - ESSENTIAL (PRIMARY) HYPERTENSION (14) Hyperlipemia Code(s): E78.5 - HYPERLIPIDEMIA, UNSPECIFIED (15) Lymphedema Code(s): I89.0 - LYMPHEDEMA, NOT ELSEWHERE CLASSIFIED (16) Lymphedema of both lower extremities Code(s): I89.0 - LYMPHEDEMA, NOT ELSEWHERE CLASSIFIED (17) Syncope Code(s): R55 - SYNCOPE AND COLLAPSE Qualifiers: Syncope type: unspecified Qualified Code(s): R55 - Syncope and collapse Assessment/Plan Assessment/plan: acute shortness of breath, acute anemia, acute on chronic garcia tolic CHF, mild to moderate tricuspid regurgitation, interstitial pulmonary vascular congesion with bilateral pleural effusion and bibasilar compressive atelectasis, HTN, HLD, s/p 3 vessel CABG, bilateral chronic lymphedema, vascular dementia, large hiatal hernia; blood transfusion for anemia, IV Furosemide for acute on chronic diastolic CHF, DVT/GI prophylaxis, no aspirin, metoprolol for HTN, atorvastatin for HLD, physical therapy, oxygen 3L/min via nasal cannula with spo2 96.
[2019-09-24 09:20] LABS: ALBUMIN 3.2 g/dl (3.4-5.0); CALCIUM 8.8 mg/dL (8.5-10.1); CREATININE 0.7 mg/dL (0.55-1.3); POTASSIUM 4.2 mmol/L (3.5-5.1); TOT PROT 6.8 g/dl (6.4-8.2)
--- NOTE | 2019-09-24 09:20 | EKG ---
Test Reason : Blood Pressure : / mmHG Vent. Rate : 076 BPM Atrial Rate : 076 BPM P-R Int : 170 ms QRS Dur : 078 ms QT Int : 402 ms P-R-T Axes : 046 -01 048 degrees QTc Int : 452 ms POOR DATA QUALITY, INTERPRETATION MAY BE ADVERSELY AFFECTED NORMAL SINUS RHYTHM NONSPECIFIC ST AND T WAVE ABNORMALITY ABNORMAL ECG WHEN COMPARED WITH ECG OF 28-DEC-2017 08:41, NONSPECIFIC T WAVE ABNORMALITY, WORSE IN LATERAL LEADS Confirmed by MD CHRISTOPHER, MARCOS ([id number]) on 09/24/2019 9:20:32 AM Referred By: Confirmed By:MARCOS WHITE MD
[2019-09-24 09:40] LABS: URINE COLOR YELLOW
[2019-09-24 09:41] LABS: PH,URINE 5.5 (5.0-8.0); URINE APPEARANCE CLEAR; URINE BILIRUBIN NEGATIVE (NEGATIVE); URINE GLUCOSE (UA) NEGATIVE (NEGATIVE); URINE KETONE NEGATIVE (NEGATIVE); URINE NITRITE NEGATIVE (NEGATIVE); URINE PROTEIN NEGATIVE (NEGATIVE)
[2019-09-24 09:42] LABS: EPI CELLS 5.3 /uL (0-25.1); HYALINE CASTS 0.38 /uL (0-3.1); URINE LEUK ESTERASE NEGATIVE (NEGATIVE); URINE RBC 7.8 /uL (0-23.9); URINE WBC 1.6 /uL (0-25.8)
[2019-09-24] MEDS ORDERED: PT OWN MED DRAWER 7, Y5N ONE (09:42)
[2019-09-24] MEDS: POTASSIUM CHLORIDE TABS 20 MEQ TABLET.ER (FP) PO SCH (10:09)
[2019-09-24] MEDS: PANTOPRAZOLE SODIUM 40 MG VIAL IVPUSH SCH (10:09)
[2019-09-24] MEDS: FOLIC ACID 1 MG TABLET (FP) PO SCH (10:09)
[2019-09-24] MEDS: MEMANTINE HCL 10 MG TABLET (FP) PO SCH ×2 (10:09→22:21)
[2019-09-24] MEDS: ENOXAPARIN NA (PORCINE) 40 MG/0.4 ML DISP.SYRIN SQ SCH (10:09)
[2019-09-24] MEDS: metoPROLOL SUCCINATE 25 MG TAB.SR.24H (FP) PO SCH (10:10)
[2019-09-24] MEDS: CYANOCOBALAMIN 1,000 MCG TABLET (FP) PO SCH (10:40)
[2019-09-24] MEDS: FUROSEMIDE 40 MG/4 ML INJECTABLE VIAL IVPUSH SCH (12:40)
--- NOTE | 2019-09-24 12:52 | CON.GI ---
Consult Consult Specialty:: Gastroenterology Referred by:: Dr Paul Reason for Consultation:: Anemia - History of Present Illness Chief Complaint: Weakness and SOB History of Present Illness: 84F is transferred from [address] [place] [address] for SOB and Hb 6. She denies any overt bleeding but is confused. Her daughter is present at the bedside and provides the history. The daughter is Irineo's health care proxy. She tells me that her mother's anemia is chronic and dates back over 10 years ago. She reports that Irineo had a EGD and a colonoscopy 5 years ago which was unrevealing. At that Irineo made her own decisions and expressed that she would never again allow any endoscopies. Her daughter intends to honor her mother's wishes and declines these studies. She denies any FH of GI cancers. Her mother had had transfusions in the past and had several iron infusions. Her nurse reports that she had a brown BM today but that it had the odor associated with C diff. The daughter declined a rectal exam. - History Source History Provided By: Family Member Limitations to Obtaining History: Dementia - Past Medical History TREASURY DIRECTOR: Yes: Dementia (daughter gives the term "vascular dementia" progressive since her CABG), Other Cardio/Vascular: Yes: CAD (s/p 3 vessel CABG at [facility] 5 years ago), CHF (acute on chronic diastolic with pulmonary effusion), Hyperlipdemia, Pulmonary Hypertension, Other (Lymphedema bilteral and lower extremity) Heme/Onc: Yes: Anemia (chronic and iron requiring) - Past Surgical History Past Surgical History: Yes: CABG (triple CABG at [facility] 5 years ago), Colonoscopy, Joint Replacement (bilateral knee replacements), Upper Endoscopy Additional Surgical History: bilateral shoulder surgeries, ? 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 Place of : [facility] History of Recent Travel: No Home Medications - Allergies Allergies/Adverse Reactions: Allergies Allergy/AdvReac Type Severity Reaction Status Date / Time No Known Allergies Allergy Verified 12/27/17 07:29 - Home Medications Home Medications: Ambulatory Orders Galantamine HBr [Razadyne ER] 24 mg PO DAILY 12/27/17 Acetaminophen [Tylenol .Extra-Strength -] 500 mg PO Q6H PRN tablet 12/28/17 Aspirin Coated [Ecotrin -] 81 mg PO DAILY tablet.ec 12/28/17 Atorvastatin Ca [Lipitor] 40 mg PO HS tablet 12/28/17 Folic Acid - 1 mg PO DAILY tablet 12/28/17 Metoprolol Tartrate [Lopressor -] 25 mg PO DAILY tablet 12/28/17 Potassium Chloride [K-Dur -] 20 meq PO DAILY tablet.er 12/28/17 Furosemide [Lasix -] 40 mg PO DAILY 09/10/18 Cyanocobalamin [Vitamin B12 -] 1 tab PO DAILY 11/19/18 Memantine HCl 10 mg PO BID 11/19/18 Sennosides/Docusate Sodium [Senexon-S Tablet] 2 tab PO HS PRN 11/19/18 Family Medical History Family Hx Cardiac Disorders: Father ( of OR in his 50s) Family Hx Congestive Heart Failure: Mother ( CHF at 92 ) Review of Systems Unable to obtain ROS, reason: dementia Physical Exam-GI Vital Signs: Vital Signs Temperature 99.3 F 09/24/19 10:00 Pulse Rate 91 H 09/24/19 10:00 Respiratory Rate 19 09/24/19 10:00 Blood Pressure 128/83 09/24/19 10:00 O2 Sat by Pulse Oximetry (%) 100 09/24/19 10:00 CBC,CMP WBC 7.3 K/mm3 (4.0-10.0) 09/24/19 08:15 RBC 4.71 M/mm3 (3.60-5.2) 09/24/19 08:15 Hgb 9.7 GM/dL (10.7-15.3) L 09/24/19 08:15 Hct 32.1 % (32.4-45.2) L D 09/24/19 08:15 MCV 68.2 fl (80-96) L 09/24/19 08:15 MCH 20.6 pg (25.7-33.7) L D 09/24/19 08:15 MCHC 30.2 g/dl (32.0-36.0) L 09/24/19 08:15 RDW 25.5 % (11.6-15.6) H 09/24/19 08:15 Plt Count 215 K/MM3 (134-434) 09/24/19 08:15 MPV 10.1 fl (7.5-11.1) 09/24/19 08:15 Absolute Neuts (auto) 6.1 K/mm3 (1.5-8.0) 09/24/19 08:15 Neutrophils % 84.4 % (42.8-82.8) H 09/24/19 08:15 Neutrophils % (Manual) 77.0 % (42.8-82.8) 09/23/19 11:15 Band Neutrophils % 1.0 % 09/23/19 11:15 Lymphocytes % 9.0 % (8-40) D 09/24/19 08:15 Lymphocytes % (Manual) 18.0 % (8-40) 09/23/19 11:15 Monocytes % 5.7 % (3.8-10.2) 09/24/19 08:15 Monocytes % (Manual) 2 % (3.8-10.2) L 09/23/19 11:15 Eosinophils % 0.2 % (0-4.5) D 09/24/19 08:15 Eosinophils % (Manual) 1.0 % (0-4.5) 09/23/19 11:15 Basophils % 0.7 % (0-2.0) 09/24/19 08:15 Basophils % (Manual) 1.0 % (0-2.0) 09/23/19 11:15 Nucleated RBC % 0 % (0-0) 09/24/19 08:15 Hypochromia 3+ 09/23/19 11:15 Platelet Estimate Adequate 09/23/19 11:15 Poikilocytosis 1+ 09/23/19 11:15 Anisocytosis 2+ 09/23/19 11:15 Ovalocytes 1+ 09/23/19 11:15 Sodium 145 mmol/L (136-145) 09/24/19 08:15 Potassium 4.2 mmol/L (3.5-5.1) 09/24/19 08:15 Chloride 110 mmol/L (98-107) H 09/24/19 08:15 Carbon Dioxide 24 mmol/L (21-32) 09/24/19 08:15 Anion Gap 11 MMOL/L (8-16) 09/24/19 08:15 BUN 12.0 mg/dL (7-18) 09/24/19 08:15 Creatinine 0.7 mg/dL (0.55-1.3) 09/24/19 08:15 Est GFR (CKD-EPI)AfAm 90.93 09/24/19 08:15 Est GFR (CKD-EPI)NonAf 78.45 09/24/19 08:15 Random Glucose 75 mg/dL (74-106) 09/24/19 08:15 Lactic Acid 0.6 mmol/L (0.4-2.0) 09/23/19 17:10 Calcium 8.8 mg/dL (8.5-10.1) 09/24/19 08:15 Total Bilirubin 2.0 mg/dL (0.2-1) H 09/24/19 08:15 AST 35 U/L (15-37) 09/24/19 08:15 ALT 37 U/L (13-61) 09/24/19 08:15 Alkaline Phosphatase 134 U/L (45-117) H 09/24/19 08:15 Troponin I 0.04 ng/ml (0.00-0.05) 09/23/19 11:57 B-Natriuretic Peptide 1080.8 pg/ml (5-450) H 09/23/19 11:15 Total Protein 6.8 g/dl (6.4-8.2) 09/24/19 08:15 Albumin 3.2 g/dl (3.4-5.0) L 09/24/19 08:15 Current Medications Generic Name Dose Route Start Last Admin Trade Name Deborah PRN Reason Stop Dose Admin Acetaminophen 650 mg 09/23/19 18:27 Tylenol - PO Q6H PRN PAIN LEVEL 4 - 6 Atorvastatin Calcium 40 mg 09/23/19 22:00 09/23/19 22:54 Lipitor - PO 40 mg HS [facility] Administration Cyanocobalamin 1,000 mcg 09/24/19 10:00 Vitamin B12 - PO DAILY [facility] Enoxaparin Sodium 40 mg 09/24/19 10:00 09/24/19 10:09 Lovenox - SQ 40 mg DAILY [facility] Administration Folic Acid 1 mg 09/24/19 10:00 09/24/19 10:09 Folic Acid - PO 1 mg DAILY [facility] Administration Furosemide 40 mg 09/24/19 11:00 Lasix Injection - IVPUSH DAILY [facility] Memantine 10 mg 09/23/19 22:00 09/24/19 10:09 Namenda - PO 10 mg BID [facility] Administration Metoprolol Succinate 25 mg 09/24/19 10:00 09/24/19 10:10 Toprol Xl - PO 25 mg DAILY [facility] Administration Pantoprazole Sodium 40 mg 09/23/19 18:45 09/24/19 10:09 Protonix Iv IVPUSH 40 mg DAILY [facility] Administration Potassium Chloride 20 meq 09/23/19 18:30 09/24/19 10:09 K-Dur - PO 20 meq DAILY [facility] Administration Senna 2 tab 09/23/19 22:00 Senna - PO HS PRN CONSTIPATION Constitutional: Yes: Calm, Other (confused) Eyes: Yes: Conjunctiva Clear HENT: Yes: Atraumatic Neck: Yes: Trachea Midline Cardiovascular: Yes: Regular Rate and Rhythm Respiratory: Yes: Dullness (at bases bilaterally) Gastrointestinal Inspection: Yes: WNL ...Auscultate: Yes: Normoactive Bowel Sounds ...Palpate: Yes: Soft, Other (nontender) ...Percussion: Yes: Tympanitic ...Rectal Exam: Yes: Deferred (declined by health care proxy) Edema: Yes (lymphedema) Edema: LLE: 4+ (lymphedema), RLE: 4+ (lymphadema) Neurological: Yes: Confusion Labs: CBC, BMP 09/24/19 08:15 09/24/19 08:15 INR, PTT INR 1.08 (0.83-1.09) 09/23/19 11:15 Laboratory Tests 10/17/15 05/06/17 09/23/19 05:15 06:10 11:15 Hgb 12.5 10.6 L 6.1 L* Hct 21.1 L D MCV 62.3 L B-Natriuretic Peptide Stool Occult Blood COVID-19 ([facility]) 09/23/19 09/23/19 09/23/19 11:15 17:10 17:10 Hgb Hct MCV B-Natriuretic Peptide 1080.8 H Stool Occult Blood Negative COVID-19 ([facility]) Pending 09/24/19 08:15 Hgb 9.7 L Hct MCV B-Natriuretic Peptide Stool Occult Blood COVID-19 ([facility]) Imaging - Results Cat Scan: Report Reviewed ( Final Report CT ABDOMEN & PELVIS CT WITH CONTR Show Printer-Friendly Version Patient Name: Irineo Fortune : 1935 ID: [id number] Study Date: 23-Sep-2019 15:54 Oskardenise Little Name: IRINEO FORTUNE DEPARTMENT OF RADIOLOGY Phys: Landy Greenberg RES EM : 1935 Age: 84 Sex: F [facility] Acct: [id number] Loc: [address] Exam Date: 09/23/19 Status: REG [place] [id number] Unit Number: [id number] EXAM#: TYPE/EXAM: RESULT: CT/ABDOMEN PELVIS CT WITH CONTR CT/CHEST CT WITHOUT CONTRAST Chest CT without contrast Clinical information: evaluate for pneumonia, CHF Multiplanar imaging was performed. Intravenous contrast was not administered. No prior CT exam is available at this facility for direct comparison. Mild bilateral upper and lower lung field interlobular septal thickening is seen consistent with interstitial vascular congestion. Small to moderate bilateral pleural effusions are noted with resultant bibasilar compressive atelectasis. Mild bilateral flank subcutaneous edema is visualized. Left atrial and probably left ventricular dilatation is seen. Atherosclerotic coronary artery calcifications are noted. Status post median sternotomy with CABG. Very large hiatal hernia containing the majority of the stomach. No obvious lymphadenopathy is noted on noncontrast imaging. There is no aortic aneurysm. There is no pericardial effusion. Moderate T3 vertebral body compression fracture without bony retropulsion. This fracture appears to be chronic. impression: Interstitial pulmonary vascular congestion is noted with small to moderate bilateral pleural effusions. There is resultant bibasilar compressive atelectasis. A superimposed infiltrate would be difficult to exclude on the basis of CT only. Correlate clinically. Mild bilateral flank subcutaneous edema. Cardiomegaly. Extensive atherosclerotic coronary artery calcifications. Status post median sternotomy with CABG. Very large hiatal hernia. There is no aortic aneurysm. No gross endobronchial pathology is identified. No gross acute fracture is identified allowing for respiratory motion artifact. Moderate T3 vertebral body compression fracture without bony retropulsion. This fracture appears to be chronic. Correlate clinically. Thoracolumbar scoliosis. Status post bilateral shoulder replacement surgeries. Abdomen and pelvis CT with intravenous contrast Clinical information: trauma Multiplanar imaging was performed following the intravenous administration of nonionic contrast. Enteric contrast was not administered. No prior CT exam is available at this facility for direct comparison. Mild bilateral flank subcutaneous edema. There is no evidence of pneumoperitoneum, abscess or bowel obstruction. A small amount of presacral edema/fluid is seen. Large hiatal hernia containing the majority of the stomach. The pancreatic head appears mildly prominent without associated abnormal attenuation. The perip ancreatic fat planes appear intact. The liver, spleen, adrenal glands and kidneys demonstrate no obvious abnormality allowing for respiratory motion artifact. There is no aortic aneurysm. No obvious lymphadenopathy is identified. Cholelithiasis is seen without CT evidence of acute cholecystitis. No obvious biliary tract dilatation is noted allowing for respiratory motion artifact. The appendix is not definitely visualized. No obvious indirect CT signs of acute appendicitis are noted. There is no CT evidence of acute diverticulitis or obvious acute colitis. No gross noncontrast small bowel pathology is noted. The pelvic soft tissues structures and urinary bladder demonstrate no obvious CT abnormality. Thoracolumbar scoliosis. No obvious acute fracture is identified allowing for respiratory motion artifact. Impression: No obvious traumatic changes are identified allowing for respiratory motion artifact. Mild bilateral flank subcutaneous edema. Small amount of presacral edema/fluid. The head of the pancreas appears mildly prominent probably on the basis of normal variation given lack of associated abnormal parenchymal density. Correlation with nonemergent MRI is suggested (versus comparison with prior CT/MRI studies if available from a different facility). Cholelithiasis. Large hiatal hernia containing the majority of the stomach. Reported By: Harrison Aguero MD 09/23/191632 Landy Greenberg RESIDENT Technologist: Clement Hernandez Transcribed Date/Time: 09/23/191632 Client Experience Consultant: Harrison Aguero Printed Date/Time: By: Signed by: Harrison Aguero Signed on: 23-Sep-2019 16:33) Problem List - Problems (1) Microcytic hypochromic anemia Code(s): D50.9 - IRON DEFICIENCY ANEMIA, UNSPECIFIED (2) History of coronary artery bypass graft x 3 Code(s): Z95.1 - PRESENCE OF AORTOCORONARY BYPASS GRAFT (3) Acute on chronic diastolic CHF (congestive heart failure) Code(s): I50.33 - ACUTE ON CHRONIC DIASTOLIC (CONGESTIVE) HEART FAILURE (4) Bilateral pleural effusion Code(s): J90 - PLEURAL EFFUSION, NOT ELSEWHERE CLASSIFIED (5) Hiatal hernia Code(s): K44.9 - DIAPHRAGMATIC HERNIA WITHOUT OBSTRUCTION OR GANGRENE (6) Lymphedema of both lower extremities Code(s): I89.0 - LYMPHEDEMA, NOT ELSEWHERE CLASSIFIED Assessment/Plan Impression: - Acute anemia superimposed on chronic anemia requiring iron infusions in the past. 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 The large size of her hiatal hernia raises the distinct possibility of bleeding from Jatin ulcers often found within such hernias or from chronic torsion at an organoaxial volvulus focus which is commonly associated with such large hernias. Plan: -- EGD and colonoscopy have been declined by the krissy care proxy, Reddy jacome -- Transfuse prn -- Venofer infusions prn -- Serial CBCs here and as an q 3 months as an outpatient -- Empiric PPI therapy
--- NOTE | 2019-09-24 13:16 | ECHO ---
Version: 1 Name: IAN HUSTON Exam: Adult Echocardiogram Study Date: 09/24/2019, 7:52 AM Age: 84 Years MMode/2D Measurements & Calculations IVSd: 1.01 cm LVIDs: 2.13 cm LVIDd: 3.7 cm LVPWd: 1.04 cm LAV (MOD-bp): 60.4 ml LVOT diam: 2.00 cm Ao root diam: 2.7 cm LA dimension: 3.3 cm Doppler Measurements & Calculations MV E max nikko: 161.0 cm/sec Med E/e': 35.2 MV A max inkko: 149.7 cm/sec Med Peak E' Nikko: 4.6 cm/sec MV E/A: 1.08 Lat E/e': 19.5 Lat Peak E' Nikko: 8.3 cm/sec Ao max P.1 mmHg Ao V2 max: 194.3 cm/sec TR max nikko: 303.8 cm/sec TR max P.3 mmHg Left Ventricle The left ventricular size, thickness and function are normal. EF 74%. Abnormal diastolic compliance. Right Ventricle The right ventricle is normal in size and function. Atria Mild LAE. Right atrial size is normal. Mitral Valve Mitral annular calcification, MV thickening with focal calcification at the leaflet tips. Mild MR. Tricuspid Valve The tricuspid valve is normal in structure and function. Mild TR, PASP 49 mmHg, Moderate Pulmonary H TN. Aortic Valve Fibrocalcification of the AV without aortic stenosis. Pulmonic Valve The pulmonic valve is normal in structure and function. Great Vessels The aortic root is normal size. Pericardium/Pleura There is no pericardial effusion. Summary Statements The left ventricular size, thickness and function are normal Abnormal diastolic compliance The right ventricle is normal in size and function. EF 74% Mild LAE Right atrial size is normal. Mitral annular calcification, MV thickening with focal calcification at the leaflet tips Mild MR The tricuspid valve is normal in structure and function. Mild TR, PASP 49 mmHg, Moderate Pulmonary HTN Fibrocalcification of the AV without aortic stenosis The pulmonic valve is normal in structure and function. MD Rafa Catherine 09/24/2019, 1:16 PM Ordering Physician: Sergey Williamson Performed By: Rosy Valle
--- NOTE | 2019-09-24 13:21 | PN ---
Progress Note (short form) - Note Progress Note: CC: sob, hypoxia s: Denies cp sob palps dizzy loc pnd orthopnea. Current Medications Generic Name Dose Route Start Last Admin Trade Name Deborah PRN Reason Stop Dose Admin Acetaminophen 650 mg 09/23/19 18:27 Tylenol - PO Q6H PRN PAIN LEVEL 4 - 6 Atorvastatin Calcium 40 mg 09/23/19 22:00 09/23/19 22:54 Lipitor - PO 40 mg HS [facility] Administration Cyanocobalamin 1,000 mcg 09/24/19 10:00 Vitamin B12 - PO DAILY [facility] Enoxaparin Sodium 40 mg 09/24/19 10:00 09/24/19 10:09 Lovenox - SQ 40 mg DAILY [facility] Administration Folic Acid 1 mg 09/24/19 10:00 09/24/19 10:09 Folic Acid - PO 1 mg DAILY [facility] Administration Furosemide 40 mg 09/24/19 11:00 Lasix Injection - IVPUSH DAILY [facility] Memantine 10 mg 09/23/19 22:00 09/24/19 10:09 Namenda - PO 10 mg BID [facility] Administration Metoprolol Succinate 25 mg 09/24/19 10:00 09/24/19 10:10 Toprol Xl - PO 25 mg DAILY [facility] Administration Pantoprazole Sodium 40 mg 09/23/19 18:45 09/24/19 10:09 Protonix Iv IVPUSH 40 mg DAILY [facility] Administration Potassium Chloride 20 meq 09/23/19 18:30 09/24/19 10:09 K-Dur - PO 20 meq DAILY [facility] Administration Senna 2 tab 09/23/19 22:00 Senna - PO HS PRN CONSTIPATION Vital Signs Period Temp Pulse Resp BP Sys/Rosenberg Pulse Ox Last 24 Hr 97.8 F-99.3 F 72-91 17-20 106-166/41-89 96-100 nad, calm jvd flat, neck supple ctab, nl effort rrr nl s1, s2, 2/6 sys murmur at sternal border + bs soft nt nd ext with 1+LE edema bl, no cyanosis or clubbing + dp/pt, no carotid bruit alert, not oriented no jaundice, diaphoresis ekg: sr nl intervals no ischemic changes cxr: chf, b/l effs Echo 04/2017: nl lv/rv size/fn. 1+ mac. 1+ mr. mild-mod tr. rvsp nl. Echo 12/2014: nl LV size, nl overall EF; basal inferolat and xbiaa-ou-tis IW hypo; conc LVH; nl RV; valves WNL; no pulm HTN echo 08/2019 nl LV function, E/A reversal, RV nl, mild MAC, mild MR, mod pulm HTN PASP 49 mmHg, calcification of AV without Assessment/Plan 84 year old female with a significant PMH of CAD (s/p 3 vessel CABG in 2016), dementia, anemia, HTN, hyperlipidemia, chronic bilateral LE edema, sent to ER from [facility] for sob and hypoxia. sob/hypoxia, anemia, acute on chronic diastolic chf: -pt with congestion and effusions on cxr and significant le edema, likely contributing to her sob/hypoxia. She also has significant anemia with hgb in 6s. - s/p PRBC transfusion - cont lasix 40 mg IV daily, monitor daily chem7 -anemia eval, GI consult -no signs acs, trend ce's -nl LV function on echo with mod pulm HTN -hypoxia improved with nasal canula CP, cad s/p cabg: -stable, as above -cont statin, bb -hold asa due to severe anemia htn -held home toprol due to low bp initially, now resumed hld: -cont statin
[2019-09-24] MEDS: ATORVASTATIN CA 40 MG TABLET (FP) PO SCH (22:21)
[2019-09-25 07:24] LABS: BASO % 0.6 % (0-2.0); EOS % 1.3 % (0-4.5); HEMATOCRIT 31.5 % (32.4-45.2); HEMOGLOBIN 9.6 GM/dL (10.7-15.3); MCH 20.8 pg (25.7-33.7); MCHC 30.4 g/dl (32.0-36.0); MEAN CELL VOLUME 68.5 fl (80-96); MEAN PLT VOLUME 9.7 fl (7.5-11.1); MONO % 6.9 % (3.8-10.2); NEUT % 78.2 % (42.8-82.8); PLATELET COUNT 219 K/MM3 (134-434); RDW 25.6 % (11.6-15.6); WHITE BLOOD COUNT 6.2 K/mm3 (4.0-10.0)
[2019-09-25 08:25] LABS: ALBUMIN 3.2 g/dl (3.4-5.0); BILIRUBIN,TOTAL 1.8 mg/dL (0.2-1); BLOOD UREA NITROGEN 12.3 mg/dL (7-18); CALCIUM 9.2 mg/dL (8.5-10.1); CREATININE 0.6 mg/dL (0.55-1.3); TOT PROT 6.7 g/dl (6.4-8.2)
--- NOTE | 2019-09-25 08:33 | PN ---
Progress Note, Physician Chief Complaint: Patient seen and examined at the bedside, no acute events from last night, feeling stronger, no chest pain. History of Present Illness: This 84 yr old w/f with PMH of HTN, HLD, S/P CABG, chronic lymphedema, vascular dementia, s/p bilateral cataract surgery, s/p bilateral knee replacement admitted with an acute shortness of breath, acute on chronic diastolic CHF, acute severe anemia HB 6.1, pulmonary interstitial vascular congestion with bilateral pleural effusion and bibasilar compressive atelectasis. - Current Medication List Current Medications: Active Medications Acetaminophen (Tylenol -) 650 mg PO Q6H PRN PRN Reason: PAIN LEVEL 4 - 6 Atorvastatin Calcium (Lipitor -) 40 mg PO HS [facility] Last Admin: 09/24/19 22:21 Dose: 40 mg Documented by: Cyanocobalamin (Vitamin B12 -) 1,000 mcg PO DAILY [facility] Last Admin: 09/24/19 10:40 Dose: 1,000 mcg Documented by: Enoxaparin Sodium (Lovenox -) 40 mg SQ DAILY [facility] Last Admin: 09/24/19 10:09 Dose: 40 mg Documented by: Folic Acid (Folic Acid -) 1 mg PO DAILY [facility] Last Admin: 09/24/19 10:09 Dose: 1 mg Documented by: Furosemide (Lasix Injection -) 40 mg IVPUSH DAILY [facility] Last Admin: 09/24/19 12:40 Dose: 40 mg Documented by: Iron Sucrose 200 mg/ Sodium (Chloride) 100 mls @ 100 mls/hr IVPB ONCE ONE Stop: 09/25/19 10:59 Memantine (Namenda -) 10 mg PO BID [facility] Last Admin: 09/24/19 22:21 Dose: 10 mg Documented by: Metoprolol Succinate (Toprol Xl -) 25 mg PO DAILY [facility] Last Admin: 09/24/19 10:10 Dose: 25 mg Documented by: Pantoprazole Sodium (Protonix Iv) 40 mg IVPUSH DAILY [facility] Last Admin: 09/24/19 10:09 Dose: 40 mg Documented by: Potassium Chloride (K-Dur -) 20 meq PO DAILY [facility] Last Admin: 09/24/19 10:09 Dose: 20 meq Documented by: Senna (Senna -) 2 tab PO HS PRN PRN Reason: CONSTIPATION - Objective Vital Signs: Vital Signs Temperature 99.0 F 09/25/19 00:00 Pulse Rate 68 09/25/19 08:00 Respiratory Rate 18 09/25/19 08:00 Blood Pressure 132/59 L 09/25/19 08:00 O2 Sat by Pulse Oximetry (%) 100 09/25/19 08:00 Constitutional: Yes: Well Nourished, No Distress, Calm Eyes: Yes: Conjunctiva Clear, EOM Intact HENT: Yes: Atraumatic, Normocephalic Neck: Yes: Supple, Trachea Midline Cardiovascular: Yes: Regular Rate and Rhythm Respiratory: Yes: Regular, CTA Bilaterally, Diminished, On Nasal O2, Rales, SOB, SOB on Exertion Gastrointestinal: Yes: Normal Bowel Sounds, Soft ...Rectal Exam: Yes: Deferred Genitourinary: Yes: Incontinence Breast(s): Yes: WNL Musculoskeletal: Yes: Muscle Weakness Extremities: Yes: WNL Edema: Yes Edema: LLE: 3+, RLE: 3+ Peripheral Pulses WNL: Yes Integumentary: Yes: WNL Neurological: Yes: Alert, Unsteady Gait, Weakness ...Motor Strength: LUE (generalized muscle weakness of all extremities) Psychiatric: Yes: Alert Labs: CBC, BMP 09/25/19 05:25 09/25/19 06:00 INR, PTT INR 1.08 (0.83-1.09) 09/23/19 11:15 - ....Imaging Other: Report Reviewed (lab data reviewed) Problem List - Problems (1) Shortness of breath Code(s): R06.02 - SHORTNESS OF BREATH (2) Pulmonary vascular congestion Code(s): R09.89 - OTH SYMPTOMS AND SIGNS INVOLVING THE CIRC AND RESP SYSTEMS (3) Bilateral pleural effusion Code(s): J90 - PLEURAL EFFUSION, NOT ELSEWHERE CLASSIFIED (4) Atelectasis Code(s): J98.11 - ATELECTASIS (5) Hiatal hernia Code(s): K44.9 - DIAPHRAGMATIC HERNIA WITHOUT OBSTRUCTION OR GANGRENE (6) Moderate tricuspid regurgitation Code(s): I07.1 - RHEUMATIC TRICUSPID INSUFFICIENCY (7) Acute on chronic diastolic CHF (congestive heart failure) Code(s): I50.33 - ACUTE ON CHRONIC DIASTOLIC (CONGESTIVE) HEART FAILURE (8) 3-vessel CAD Code(s): I25.10 - ATHSCL HEART DISEASE OF [place] CORONARY ARTERY W/O ANG PCTRS (9) Atypical chest pain Code(s): R07.89 - OTHER CHEST PAIN (10) CAD of autologous bypass graft Code(s): I25.810 - ATHEROSCLEROSIS OF CABG W/O ANGINA PECTORIS (11) Cellulitis Code(s): L03.90 - CELLULITIS, UNSPECIFIED Qualifiers: Site of cellulitis: extremity Site of cellulitis of extremity: upper extremity Laterality: left Qualified Code(s): L03.114 - Cellulitis of left upper limb (12) Chest pain Code(s): R07.9 - CHEST PAIN, UNSPECIFIED Qualifiers: Chest pain type: unspecified Qualified Code(s): R07.9 - Chest pain, unspecified (13) HTN (hypertension) Code(s): I10 - ESSENTIAL (PRIMARY) HYPERTENSION (14) Hyperlipemia Code(s): E78.5 - HYPERLIPIDEMIA, UNSPECIFIED (15) Lymphedema Code(s): I89.0 - LYMPHEDEMA, NOT ELSEWHERE CLASSIFIED (16) Lymphedema of both lower extremities Code(s): I89.0 - LYMPHEDEMA, NOT ELSEWHERE CLASSIFIED (17) Syncope Code(s): R55 - SYNCOPE AND COLLAPSE Qualifiers: Syncope type: unspecified Qualified Code(s): R55 - Syncope and collapse (18) Mild mitral regurgitation Code(s): I34.0 - NONRHEUMATIC MITRAL (VALVE) INSUFFICIENCY (19) Moderate pulmonary arterial systolic hypertension Code(s): I27.21 - SECONDARY PULMONARY ARTERIAL HYPERTENSION Assessment/Plan Assessment/plan: acute shortness of breath, acute on chronic systolic CHF, acute severe anemia, large hiatal hernia, interstitial pulmonary vascular congestion with bilateral pleural effusion and bibasilar compressive atelectasis, iron deficiency anemia, abnormal LV diastolic compliance, mild MR, moderate pulmonary hypertension; IV Furosemide for diastolic CHF, blood transfusion and venofer infusion for iron deficiency anemia, DVT/GI prophylaxis, atorvastatin for HLD, metoprolol for HTN, potassium chloride for hypokalemia, senna for constipation.
[2019-09-25] MEDS ORDERED: PT OWN MED DRAWER 7, Y5N ONE (09:37)
[2019-09-25] MEDS: metoPROLOL SUCCINATE 25 MG TAB.SR.24H (FP) PO SCH (09:52)
[2019-09-25] MEDS: MEMANTINE HCL 10 MG TABLET (FP) PO SCH ×2 (09:52→21:57)
[2019-09-25] MEDS: POTASSIUM CHLORIDE TABS 20 MEQ TABLET.ER (FP) PO SCH (09:52)
[2019-09-25] MEDS: ENOXAPARIN NA (PORCINE) 40 MG/0.4 ML DISP.SYRIN SQ SCH (09:52)
[2019-09-25] MEDS: FOLIC ACID 1 MG TABLET (FP) PO SCH (09:52)
[2019-09-25] MEDS: CYANOCOBALAMIN 1,000 MCG TABLET (FP) PO SCH (09:52)
[2019-09-25] MEDS: FUROSEMIDE 40 MG/4 ML INJECTABLE VIAL IVPUSH SCH (09:52)
[2019-09-25] MEDS: PANTOPRAZOLE SODIUM 40 MG VIAL IVPUSH SCH (09:52)
[2019-09-25] MEDS ORDERED: IRON SUCROSE INJECTION 200 MG in SODIUM CHLORIDE 90 ML IVPB ONE (10:00)
--- NOTE | 2019-09-25 13:43 | PN ---
Progress Note (short form) - Note Progress Note: CC: sob, hypoxia s: Denies cp sob palps dizzy loc pnd orthopnea. Current Medications Generic Name Dose Route Start Last Admin Trade Name Deborah PRN Reason Stop Dose Admin Acetaminophen 650 mg 09/23/19 18:27 Tylenol - PO Q6H PRN PAIN LEVEL 4 - 6 Atorvastatin Calcium 40 mg 09/23/19 22:00 09/24/19 22:21 Lipitor - PO 40 mg HS [facility] Administration Cyanocobalamin 1,000 mcg 09/24/19 10:00 09/25/19 09:52 Vitamin B12 - PO 1,000 mcg DAILY [facility] Administration Enoxaparin Sodium 40 mg 09/24/19 10:00 09/25/19 09:52 Lovenox - SQ 40 mg DAILY [facility] Administration Folic Acid 1 mg 09/24/19 10:00 09/25/19 09:52 Folic Acid - PO 1 mg DAILY [facility] Administration Furosemide 40 mg 09/24/19 11:00 09/25/19 09:52 Lasix Injection - IVPUSH 40 mg DAILY [facility] Administration Memantine 10 mg 09/23/19 22:00 09/25/19 09:52 Namenda - PO 10 mg BID [facility] Administration Metoprolol Succinate 25 mg 09/24/19 10:00 09/25/19 09:52 Toprol Xl - PO 25 mg DAILY [facility] Administration Pantoprazole Sodium 40 mg 09/23/19 18:45 09/25/19 09:52 Protonix Iv IVPUSH 40 mg DAILY [facility] Administration Potassium Chloride 20 meq 09/23/19 18:30 09/25/19 09:52 K-Dur - PO 20 meq DAILY [facility] Administration Senna 2 tab 09/23/19 22:00 Senna - PO HS PRN CONSTIPATION Vital Signs Period Temp Pulse Resp BP Sys/Rosenberg Pulse Ox Last 24 Hr 99.0 F 68-74 18-20 119-147/59-63 94-100 nad, calm jvd flat, neck supple ctab, nl effort rrr nl s1, s2, 2/6 sys murmur at sternal border + bs soft nt nd ext with 1+LE edema bl, no cyanosis or clubbing + dp/pt, no carotid bruit alert, not oriented no jaundice, diaphoresis ekg: sr nl intervals no ischemic changes cxr: chf, b/l effs Echo 04/2017: nl lv/rv size/fn. 1+ mac. 1+ mr. mild-mod tr. rvsp nl. Echo 12/2014: nl LV size, nl overall EF; basal inferolat and [id number] IW hypo; conc LVH; nl RV; valves WNL; no pulm HTN echo 08/2019 nl LV function, E/A reversal, RV nl, mild MAC, mild MR, mod pulm HTN PASP 49 mmHg, calcification of AV without tele: sinus, ST Assessment/Plan 84 year old female with a significant PMH of CAD (s/p 3 vessel CABG in 2015), dementia, anemia, HTN, hyperlipidemia, chronic bilateral LE edema, sent to ER from [facility] for sob and hypoxia. sob/hypoxia, anemia, acute on chronic diastolic chf: -pt with congestion and effusions on cxr and significant le edema, likely contributing to her sob/hypoxia. She also has significant anemia with hgb in 6s. - s/p PRBC transfusion - cont lasix 40 mg IV daily, monitor daily chem7, Cr stable -anemia eval, GI consult -no signs acs, trend ce's -nl LV function on echo with mod pulm HTN -hypoxia improved with nasal canula CP, cad s/p cabg: -stable, as above -cont statin, bb -hold asa due to severe anemia htn -held home toprol due to low bp initially, now resumed hld: -cont statin
--- NOTE | 2019-09-25 15:23 | PN.GI ---
GI Progress Note Subjective: GI NOte: No overt bleeding overnight . Hb stable, Has iron deficiency. - Objective Vital Signs: Vital Signs Temperature 98.8 F 09/25/19 14:01 Pulse Rate 70 09/25/19 14:01 Respiratory Rate 18 09/25/19 14:01 Blood Pressure 117/51 L 09/25/19 14:01 O2 Sat by Pulse Oximetry (%) 100 09/25/19 10:00 Laboratory Tests 09/23/19 09/23/19 09/24/19 11:15 17:10 08:15 Hgb 6.1 L* 9.7 L Retic Count Iron TIBC Iron Saturation Unsaturated IBC Ferritin Total Bilirubin Alkaline Phosphatase Vitamin B12 Serum Folate COVID-19 ([facility]) Not detected 09/25/19 09/25/19 09/25/19 05:25 05:25 06:00 Hgb 9.6 L Retic Count 1.61 H Iron TIBC Iron Saturation Unsaturated IBC Ferritin Total Bilirubin 1.8 H Alkaline Phosphatase 129 H Vitamin B12 Serum Folate 75 H COVID-19 ([facility]) 09/25/19 06:00 Hgb Retic Count Iron 27 L TIBC 377 Iron Saturation 7 L Unsaturated IBC 350 H Ferritin 28.4 Total Bilirubin Alkaline Phosphatase Vitamin B12 2229 H Serum Folate COVID-19 ([facility]) Constitutional: Calm ...Auscultate: Yes: Normoactive Bowel Sounds ...Palpate: Yes: Soft, Other (nontender) Labs: CBC, BMP 09/25/19 05:25 09/25/19 06:00 INR, PTT INR 1.08 (0.83-1.09) 09/23/19 11:15 Assessment/Plan Impression: - Acute anemia superimposed on chronic anemia requiring iron infusions in the past. 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 The large size of her hiatal hernia raises the distinct possibility of bleeding from Jatin ulcers often found within such hernias or from chronic torsion at an organoaxial volvulus focus which is commonly associated with such large hernias. Plan: -- EGD and colonoscopy have been declined by the krissy care proxy, Irineo's daughter -- Transfuse prn -- Venofer infusions prn -- Serial CBCs here and as an q 3 months as an outpatient -- Empiric PPI therapy Problem List - Problems (1) Microcytic hypochromic anemia Code(s): D50.9 - IRON DEFICIENCY ANEMIA, UNSPECIFIED (2) History of coronary artery bypass graft x 3 Code(s): Z95.1 - PRESENCE OF AORTOCORONARY BYPASS GRAFT (3) Acute on chronic diastolic CHF (congestive heart failure) Code(s): I50.33 - ACUTE ON CHRONIC DIASTOLIC (CONGESTIVE) HEART FAILURE (4) Bilateral pleural effusion Code(s): J90 - PLEURAL EFFUSION, NOT ELSEWHERE CLASSIFIED (5) Hiatal hernia Code(s): K44.9 - DIAPHRAGMATIC HERNIA WITHOUT OBSTRUCTION OR GANGRENE (6) Lymphedema of both lower extremities Code(s): I89.0 - LYMPHEDEMA, NOT ELSEWHERE CLASSIFIED
[2019-09-25] MEDS: ATORVASTATIN CA 40 MG TABLET (FP) PO SCH (21:56)
[2019-09-25] MEDS: ACETAMINOPHEN 325 MG TABLET (FP) PO PRN (21:56)
[2019-09-26 07:28] LABS: BASO % 0.8 % (0-2.0); EOS % 4.6 % (0-4.5); HEMATOCRIT 31.3 % (32.4-45.2); HEMOGLOBIN 9.4 GM/dL (10.7-15.3); LYMPH % 19.4 % (8-40); MCH 20.6 pg (25.7-33.7); MEAN CELL VOLUME 68.6 fl (80-96); MEAN PLT VOLUME 10.7 fl (7.5-11.1); MONO % 8.6 % (3.8-10.2); NEUT % 66.6 % (42.8-82.8); RBC 4.56 M/mm3 (3.60-5.2); WHITE BLOOD COUNT 4.3 K/mm3 (4.0-10.0)
[2019-09-26 07:40] LABS: ALBUMIN 2.8 g/dl (3.4-5.0); BILIRUBIN,TOTAL 0.7 mg/dL (0.2-1); BLOOD UREA NITROGEN 17.5 mg/dL (7-18); CALCIUM 8.5 mg/dL (8.5-10.1); CREATININE 0.8 mg/dL (0.55-1.3); POTASSIUM 4.2 mmol/L (3.5-5.1); TOT PROT 6.2 g/dl (6.4-8.2)
--- NOTE | 2019-09-26 09:10 | PN ---
Progress Note, Physician Chief Complaint: Patient seen and examined at the bedside in ICU, no acute events from last night, no labored breathing while on oxygen 3L/min via nasal cannula. History of Present Illness: This 84 yr old w/f with PMH of HTN, HLD, s/p CABG, chronic lymphedema, bilateral knee replacement, s/p cataract surgery admitted via ER with an acute shortness of breath, acute exacerbation of diastolic CHF, acute anemia, interstitial pulmonary vascular congestion with bilateral pleural effusion and bibasilar compressive atelectasis. - Current Medication List Current Medications: Active Medications Acetaminophen (Tylenol -) 650 mg PO Q6H PRN PRN Reason: PAIN LEVEL 4 - 6 Last Admin: 09/25/19 21:56 Dose: 650 mg Documented by: Atorvastatin Calcium (Lipitor -) 40 mg PO HS [facility] Last Admin: 09/25/19 21:56 Dose: 40 mg Documented by: Cyanocobalamin (Vitamin B12 -) 1,000 mcg PO DAILY [facility] Last Admin: 09/25/19 09:52 Dose: 1,000 mcg Documented by: Enoxaparin Sodium (Lovenox -) 40 mg SQ DAILY [facility] Last Admin: 09/25/19 09:52 Dose: 40 mg Documented by: Folic Acid (Folic Acid -) 1 mg PO DAILY [facility] Last Admin: 09/25/19 09:52 Dose: 1 mg Documented by: Furosemide (Lasix Injection -) 40 mg IVPUSH DAILY [facility] Last Admin: 09/25/19 09:52 Dose: 40 mg Documented by: Memantine (Namenda -) 10 mg PO BID [facility] Last Admin: 09/25/19 21:57 Dose: 10 mg Documented by: Metoprolol Succinate (Toprol Xl -) 25 mg PO DAILY [facility] Last Admin: 09/25/19 09:52 Dose: 25 mg Documented by: Pantoprazole Sodium (Protonix Iv) 40 mg IVPUSH DAILY [facility] Last Admin: 09/25/19 09:52 Dose: 40 mg Documented by: Potassium Chloride (K-Dur -) 20 meq PO DAILY [facility] Last Admin: 09/25/19 09:52 Dose: 20 meq Documented by: Senna (Senna -) 2 tab PO HS PRN PRN Reason: CONSTIPATION Last Admin: 09/25/19 21:57 Dose: 2 tab Documented by: - Objective Vital Signs: Vital Signs Temperature 98.6 F 09/25/19 20:00 Pulse Rate 55 L 09/26/19 04:35 Respiratory Rate 15 09/26/19 04:00 Blood Pressure 101/56 L 09/26/19 04:00 O2 Sat by Pulse Oximetry (%) 100 09/26/19 04:35 Constitutional: Yes: Well Nourished, No Distress, Calm Eyes: Yes: Conjunctiva Clear, EOM Intact HENT: Yes: Atraumatic, Normocephalic Neck: Yes: Supple, Trachea Midline Cardiovascular: Yes: Regular Rate and Rhythm Respiratory: Yes: Regular, CTA Bilaterally, Diminished Gastrointestinal: Yes: Normal Bowel Sounds, Soft ...Rectal Exam: Yes: Deferred Genitourinary: Yes: Incontinence Breast(s): Yes: WNL Musculoskeletal: Yes: Muscle Weakness Extremities: Yes: Other (chronic lymphedema) Edema: Yes Edema: LLE: 3+, RLE: 3+ Peripheral Pulses WNL: Yes Integumentary: Yes: WNL Neurological: Yes: Alert, Unsteady Gait, Weakness ...Motor Strength: LUE (generalized muscle weakness of all extremities) Psychiatric: Yes: Alert Labs: CBC, BMP 09/26/19 05:25 09/26/19 05:25 INR, PTT INR 1.08 (0.83-1.09) 09/23/19 11:15 - ....Imaging Other: Report Reviewed (lab data reviewed) Problem List - Problems (1) Shortness of breath Code(s): R06.02 - SHORTNESS OF BREATH (2) Pulmonary vascular congestion Code(s): R09.89 - OTH SYMPTOMS AND SIGNS INVOLVING THE CIRC AND RESP SYSTEMS (3) Bilateral pleural effusion Code(s): J90 - PLEURAL EFFUSION, NOT ELSEWHERE CLASSIFIED (4) Atelectasis Code(s): J98.11 - ATELECTASIS (5) Hiatal hernia Code(s): K44.9 - DIAPHRAGMATIC HERNIA WITHOUT OBSTRUCTION OR GANGRENE (6) Moderate tricuspid regurgitation Code(s): I07.1 - RHEUMATIC TRICUSPID INSUFFICIENCY (7) Acute on chronic diastolic CHF (congestive heart failure) Code(s): I50.33 - ACUTE ON CHRONIC DIASTOLIC (CONGESTIVE) HEART FAILURE (8) 3-vessel CAD Code(s): I25.10 - ATHSCL HEART DISEASE OF [place] CORONARY ARTERY W/O ANG PCTRS (9) Atypical chest pain Code(s): R07.89 - OTHER CHEST PAIN (10) CAD of autologous bypass graft Code(s): I25.810 - ATHEROSCLEROSIS OF CABG W/O ANGINA PECTORIS (11) Cellulitis Code(s): L03.90 - CELLULITIS, UNSPECIFIED Qualifiers: Site of cellulitis: extremity Site of cellulitis of extremity: upper extremity Laterality: left Qualified Code(s): L03.114 - Cellulitis of left upper limb (12) Chest pain Code(s): R07.9 - CHEST PAIN, UNSPECIFIED Qualifiers: Chest pain type: unspecified Qualified Code(s): R07.9 - Chest pain, unspecified (13) HTN (hypertension) Code(s): I10 - ESSENTIAL (PRIMARY) HYPERTENSION (14) Hyperlipemia Code(s): E78.5 - HYPERLIPIDEMIA, UNSPECIFIED (15) Lymphedema Code(s): I89.0 - LYMPHEDEMA, NOT ELSEWHERE CLASSIFIED (16) Lymphedema of both lower extremities Code(s): I89.0 - LYMPHEDEMA, NOT ELSEWHERE CLASSIFIED (17) Syncope Code(s): R55 - SYNCOPE AND COLLAPSE Qualifiers: Syncope type: unspecified Qualified Code(s): R55 - Syncope and collapse (18) Mild mitral regurgitation Code(s): I34.0 - NONRHEUMATIC MITRAL (VALVE) INSUFFICIENCY (19) Moderate pulmonary arterial systolic hypertension Code(s): I27.21 - SECONDARY PULMONARY ARTERIAL HYPERTENSION Assessment/Plan Assessment/plan: acute shortness of breath, acute exacerbation of diastolic CHF, acute severe iron deficiency anemia, HTN, HLD, s/p CABG, chronic lymphedema, vascular dementia, abnormal LV diastolic compliance, mild MR, moderate pulmonary hypertension, interstitial pulmonary vascular congestion with bilateral pleural effusion and bibasilar compressive atelectasis; IV Furosemide for diastolic CHF, DVT/GI prophylaxis, potassium chloride for hypokalemia, physical therapy, venofer infusion for iron deficiency anemia, atorvastatin for HLD, metoprolol for HTN, oxygen 3L/min via nasal cannula with spo2 100%.
[2019-09-26] MEDS: FUROSEMIDE 40 MG/4 ML INJECTABLE VIAL IVPUSH SCH (09:57)
[2019-09-26] MEDS: FOLIC ACID 1 MG TABLET (FP) PO SCH (09:57)
[2019-09-26] MEDS: POTASSIUM CHLORIDE TABS 20 MEQ TABLET.ER (FP) PO SCH (09:57)
[2019-09-26] MEDS: ENOXAPARIN NA (PORCINE) 40 MG/0.4 ML DISP.SYRIN SQ SCH (09:57)
[2019-09-26] MEDS: metoPROLOL SUCCINATE 25 MG TAB.SR.24H (FP) PO SCH (09:58)
[2019-09-26] MEDS: PANTOPRAZOLE SODIUM 40 MG VIAL IVPUSH SCH (09:58)
[2019-09-26] MEDS: MEMANTINE HCL 10 MG TABLET (FP) PO SCH ×2 (09:58→21:19)
[2019-09-26 10:34] LABS: PLATELET ESTIMATE NORMAL
[2019-09-26 10:42] LABS: PLATELET COUNT 228 K/MM3 (134-434)
--- NOTE | 2019-09-26 11:20 | PN ---
Progress Note (short form) - Note Progress Note: CC: sob, hypoxia s: Denies cp sob palps dizzy loc pnd orthopnea. Current Medications Generic Name Dose Route Start Last Admin Trade Name Deborah PRN Reason Stop Dose Admin Acetaminophen 650 mg 09/23/19 18:27 09/25/19 21:56 Tylenol - PO 650 mg Q6H PRN Administration PAIN LEVEL 4 - 6 Atorvastatin Calcium 40 mg 09/23/19 22:00 09/25/19 21:56 Lipitor - PO 40 mg HS [facility] Administration Cyanocobalamin 1,000 mcg 09/24/19 10:00 09/25/19 09:52 Vitamin B12 - PO 1,000 mcg DAILY [facility] Administration Enoxaparin Sodium 40 mg 09/24/19 10:00 09/26/19 09:57 Lovenox - SQ 40 mg DAILY [facility] Administration Folic Acid 1 mg 09/24/19 10:00 09/26/19 09:57 Folic Acid - PO 1 mg DAILY [facility] Administration Furosemide 40 mg 09/24/19 11:00 09/26/19 09:57 Lasix Injection - IVPUSH 40 mg DAILY [facility] Administration Memantine 10 mg 09/23/19 22:00 09/26/19 09:58 Namenda - PO 10 mg BID [facility] Administration Metoprolol Succinate 25 mg 09/24/19 10:00 09/26/19 09:58 Toprol Xl - PO 25 mg DAILY [facility] Administration Pantoprazole Sodium 40 mg 09/23/19 18:45 09/26/19 09:58 Protonix Iv IVPUSH 40 mg DAILY [facility] Administration Potassium Chloride 20 meq 09/23/19 18:30 09/26/19 09:57 K-Dur - PO 20 meq DAILY [facility] Administration Senna 2 tab 09/23/19 22:00 09/25/19 21:57 Senna - PO 2 tab HS PRN Administration CONSTIPATION Vital Signs Period Temp Pulse Resp BP Sys/Rosenberg Pulse Ox Last 24 Hr 97.7 F-98.8 F 55-77 15-20 101-129/40-56 96-100 nad, calm jvd flat, neck supple ctab, nl effort rrr nl s1, s2, 2/6 sys murmur at sternal border + bs soft nt nd ext with trace LE edema bl, no cyanosis or clubbing + dp/pt, no carotid bruit alert, not oriented no jaundice, diaphoresis CBC, BMP 09/26/19 05:25 09/26/19 05:25 ekg: sr nl intervals no ischemic changes cxr: chf, b/l effs Echo 04/2017: nl lv/rv size/fn. 1+ mac. 1+ mr. mild-mod tr. rvsp nl. Echo 12/2014: nl LV size, nl overall EF; basal inferolat and [id number] IW hypo; conc LVH; nl RV; valves WNL; no pulm HTN echo 08/2019 nl LV function, E/A reversal, RV nl, mild MAC, mild MR, mod pulm HTN PASP 49 mmHg, calcification of AV without tele: sinus Assessment/Plan 84 year old female with a significant PMH of CAD (s/p 3 vessel CABG in 2015), dementia, anemia, HTN, hyperlipidemia, chronic bilateral LE edema, sent to ER from [facility] for sob and hypoxia. sob/hypoxia, anemia, acute on chronic diastolic chf: -pt with congestion and effusions on cxr and significant le edema, likely contributing to her sob/hypoxia. She also has significant anemia with hgb in 6s. - s/p PRBC transfusion - cont lasix 40 mg IV daily, monitor daily chem7, Cr stable, le edema better -anemia eval, GI consult -no signs acs -nl LV function on echo with mod pulm HTN CP, cad s/p cabg: -stable, as above -cont statin, bb -hold asa due to severe anemia htn -held home toprol due to low bp initially, now resumed hld: -cont statin
[2019-09-26] MEDS: CYANOCOBALAMIN 1,000 MCG TABLET (FP) PO SCH (13:27)
[2019-09-26 18:07] LABS: TRANSGLUTAMINASE IGA < 2 U/mL (0-3); TRANSGLUTAMINASE IGG < 2 U/mL (0-5)
[2019-09-26] MEDS: ACETAMINOPHEN 325 MG TABLET (FP) PO PRN (21:18)
[2019-09-26] MEDS: ATORVASTATIN CA 40 MG TABLET (FP) PO SCH (21:19)
[2019-09-27 06:04] LABS: BASO % 0.6 % (0-2.0); EOS % 2.2 % (0-4.5); HEMOGLOBIN 9.3 GM/dL (10.7-15.3); LYMPH % 15.9 % (8-40); MCH 20.6 pg (25.7-33.7); MEAN CELL VOLUME 68.7 fl (80-96); MEAN PLT VOLUME 9.9 fl (7.5-11.1); MONO % 6.4 % (3.8-10.2); NEUT % 74.9 % (42.8-82.8); PLATELET COUNT 229 K/MM3 (134-434); RBC 4.52 M/mm3 (3.60-5.2); RDW 27.6 % (11.6-15.6); WHITE BLOOD COUNT 5.9 K/mm3 (4.0-10.0)
--- NOTE | 2019-09-27 06:35 | PN ---
Progress Note, Physician Chief Complaint: sitting up eating breakfast Denies CP/SOB/dizziness TELE: NSR, Rare PVC NO WEIGHTS 09/25, 09/26 History of Present Illness: CAD Dementia Acute dCHF Severe Anemia, s/p PRBCS Non smoker - Current Medication List Current Medications: Active Medications Acetaminophen (Tylenol -) 650 mg PO Q6H PRN PRN Reason: PAIN LEVEL 4 - 6 Last Admin: 09/26/19 21:18 Dose: 650 mg Documented by: Atorvastatin Calcium (Lipitor -) 40 mg PO HS [facility] Last Admin: 09/26/19 21:19 Dose: 40 mg Documented by: Cyanocobalamin (Vitamin B12 -) 1,000 mcg PO DAILY [facility] Last Admin: 09/26/19 13:27 Dose: Not Given Documented by: Enoxaparin Sodium (Lovenox -) 40 mg SQ DAILY [facility] Last Admin: 09/26/19 09:57 Dose: 40 mg Documented by: Folic Acid (Folic Acid -) 1 mg PO DAILY [facility] Last Admin: 09/26/19 09:57 Dose: 1 mg Documented by: Furosemide (Lasix Injection -) 40 mg IVPUSH DAILY [facility] Last Admin: 09/26/19 09:57 Dose: 40 mg Documented by: Memantine (Namenda -) 10 mg PO BID [facility] Last Admin: 09/26/19 21:19 Dose: 10 mg Documented by: Metoprolol Succinate (Toprol Xl -) 25 mg PO DAILY [facility] Last Admin: 09/26/19 09:58 Dose: 25 mg Documented by: Pantoprazole Sodium (Protonix Iv) 40 mg IVPUSH DAILY [facility] Last Admin: 09/26/19 09:58 Dose: 40 mg Documented by: Potassium Chloride (K-Dur -) 20 meq PO DAILY [facility] Last Admin: 09/26/19 09:57 Dose: 20 meq Documented by: Senna (Senna -) 2 tab PO HS PRN PRN Reason: CONSTIPATION Last Admin: 09/25/19 21:57 Dose: 2 tab Documented by: - Objective Vital Signs: Vital Signs Temperature 98.4 F 09/27/19 05:50 Pulse Rate 70 09/27/19 05:50 Respiratory Rate 20 09/27/19 05:50 Blood Pressure 158/98 09/27/19 05:50 O2 Sat by Pulse Oximetry (%) 98 09/27/19 05:50 Constitutional: Yes: No Distress, Calm Eyes: Yes: Conjunctiva Clear Cardiovascular: Yes: Regular Rate and Rhythm Respiratory: Yes: CTA Bilaterally Gastrointestinal: Yes: Soft (nt) Edema: No Peripheral Pulses WNL: Yes Neurological: Yes: Alert ...Motor Strength: WNL Labs: INR, PTT INR 1.08 (0.83-1.09) 09/23/19 11:15 Laboratory Tests 09/23/19 09/23/19 09/23/19 11:15 17:10 17:10 WBC Hgb Plt Count INR 1.08 Sodium Potassium Creatinine Stool Occult Blood Negative COVID-19 ([facility]) Not detected 09/27/19 09/27/19 05:10 05:10 WBC 5.9 Hgb 9.3 L Plt Count 229 INR Sodium 143 Potassium 3.9 Creatinine 0.7 Stool Occult Blood COVID-19 ([facility]) - ....Imaging Chest X-ray: Report Reviewed, Image Reviewed (IMPROVED on 09/25) EKG: Image Reviewed Assessment/Plan DATA: echo 08/2019 nl LV function, E/A reversal, RV nl, mild MAC, mild MR, mod pulm HTN PASP 49 mmHg, calcification of AV without t Assessment/Plan 84 year old female with a significant PMH of CAD (s/p 3 vessel CABG in 2016), dementia, anemia, HTN, hyperlipidemia, chronic bilateral LE edema, sent to ER from [facility] for sob and hypoxia. sob/hypoxia, anemia, acute on chronic diastolic chf: -pt with congestion and effusions on cxr and significant le edema, likely contributing to her sob/hypoxia. She also had significant anemia with hgb in 6s. - s/p PRBC transfusion - clinically improved on Lasix 40mg IV daily with improving sx, CXR. No accurate weights last 48 hours; would convert to PO over weekend -anemia eval, GI consulted -no signs acs -nl LV function on echo with mod pulm HTN CP, cad s/p cabg: -stable, as above -cont statin, bb -hold asa due to severe anemia htn: -held home toprol due to low bp initially, now resumed hld: -cont statin
[2019-09-27 06:44] LABS: ALBUMIN 2.9 g/dl (3.4-5.0); BILIRUBIN,TOTAL 0.7 mg/dL (0.2-1); BLOOD UREA NITROGEN 16.7 mg/dL (7-18); CALCIUM 8.7 mg/dL (8.5-10.1); CREATININE 0.7 mg/dL (0.55-1.3); MAGNESIUM 2.3 mg/dL (1.8-2.4); POTASSIUM 3.9 mmol/L (3.5-5.1); TOT PROT 6.3 g/dl (6.4-8.2)
--- NOTE | 2019-09-27 08:10 | PN ---
Progress Note, Physician Chief Complaint: Patient seen and examined at the bedside in ICU, no acute events from last night, no chest pain, no labored breathing. History of Present Illness: This 84 yr old w/f with PMH of HTN, HLD, s/p CABG, chronic lymphedema, s/p bilateral knee replacement, s/p cataract surgery, dementia admitted via ER with an acute shortness of breath, acute exacerbation of diastolic CHF, acute anemia, interstitial pulmonary vascular congestion with bilateral pleural effusion with bibasilar compressive atelectasis, abnormal LV diastolic compliance, mild MR, large hiatal hernia, and moderate pulmonary hypertension. - Current Medication List Current Medications: Active Medications Acetaminophen (Tylenol -) 650 mg PO Q6H PRN PRN Reason: PAIN LEVEL 4 - 6 Last Admin: 09/26/19 21:18 Dose: 650 mg Documented by: Atorvastatin Calcium (Lipitor -) 40 mg PO HS [facility] Last Admin: 09/26/19 21:19 Dose: 40 mg Documented by: Cyanocobalamin (Vitamin B12 -) 1,000 mcg PO DAILY [facility] Last Admin: 09/26/19 13:27 Dose: Not Given Documented by: Enoxaparin Sodium (Lovenox -) 40 mg SQ DAILY [facility] Last Admin: 09/26/19 09:57 Dose: 40 mg Documented by: Folic Acid (Folic Acid -) 1 mg PO DAILY [facility] Last Admin: 09/26/19 09:57 Dose: 1 mg Documented by: Furosemide (Lasix Injection -) 40 mg IVPUSH DAILY [facility] Last Admin: 09/26/19 09:57 Dose: 40 mg Documented by: Memantine (Namenda -) 10 mg PO BID [facility] Last Admin: 09/26/19 21:19 Dose: 10 mg Documented by: Metoprolol Succinate (Toprol Xl -) 25 mg PO DAILY [facility] Last Admin: 09/26/19 09:58 Dose: 25 mg Documented by: Pantoprazole Sodium (Protonix Iv) 40 mg IVPUSH DAILY [facility] Last Admin: 09/26/19 09:58 Dose: 40 mg Documented by: Potassium Chloride (K-Dur -) 20 meq PO DAILY [facility] Last Admin: 09/26/19 09:57 Dose: 20 meq Documented by: Senna (Senna -) 2 tab PO HS PRN PRN Reason: CONSTIPATION Last Admin: 09/25/19 21:57 Dose: 2 tab Documented by: - Objective Vital Signs: Vital Signs Temperature 98.4 F 09/27/19 05:50 Pulse Rate 70 09/27/19 05:50 Respiratory Rate 20 09/27/19 05:50 Blood Pressure 158/98 09/27/19 05:50 O2 Sat by Pulse Oximetry (%) 98 09/27/19 05:50 Constitutional: Yes: Well Nourished, No Distress, Calm Eyes: Yes: Conjunctiva Clear, EOM Intact HENT: Yes: Atraumatic, Normocephalic Neck: Yes: Supple, Trachea Midline Cardiovascular: Yes: Regular Rate and Rhythm Respiratory: Yes: Regular, CTA Bilaterally, Diminished Gastrointestinal: Yes: Normal Bowel Sounds, Soft ...Rectal Exam: Yes: Deferred Genitourinary: Yes: Incontinence Breast(s): Yes: WNL Musculoskeletal: Yes: Muscle Weakness Extremities: Yes: Other (chronic lymphedema) Edema: Yes Edema: LLE: 3+, RLE: 3+ Peripheral Pulses WNL: Yes Integumentary: Yes: WNL Neurological: Yes: Alert ...Motor Strength: LUE (generalized muscle weakness of all extremities) Psychiatric: Yes: Alert Labs: CBC, BMP 09/27/19 05:10 09/27/19 05:10 INR, PTT INR 1.08 (0.83-1.09) 09/23/19 11:15 - ....Imaging Other: Report Reviewed (lab data reviewed) Problem List - Problems (1) Shortness of breath Code(s): R06.02 - SHORTNESS OF BREATH (2) Pulmonary vascular congestion Code(s): R09.89 - OTH SYMPTOMS AND SIGNS INVOLVING THE CIRC AND RESP SYSTEMS (3) Bilateral pleural effusion Code(s): J90 - PLEURAL EFFUSION, NOT ELSEWHERE CLASSIFIED (4) Atelectasis Code(s): J98.11 - ATELECTASIS (5) Hiatal hernia Code(s): K44.9 - DIAPHRAGMATIC HERNIA WITHOUT OBSTRUCTION OR GANGRENE (6) Moderate tricuspid regurgitation Code(s): I07.1 - RHEUMATIC TRICUSPID INSUFFICIENCY (7) Acute on chronic diastolic CHF (congestive heart failure) Code(s): I50.33 - ACUTE ON CHRONIC DIASTOLIC (CONGESTIVE) HEART FAILURE (8) 3-vessel CAD Code(s): I25.10 - ATHSCL HEART DISEASE OF [place] CORONARY ARTERY W/O ANG PCTRS (9) Atypical chest pain Code(s): R07.89 - OTHER CHEST PAIN (10) CAD of autologous bypass graft Code(s): I25.810 - ATHEROSCLEROSIS OF CABG W/O ANGINA PECTORIS (11) Cellulitis Code(s): L03.90 - CELLULITIS, UNSPECIFIED Qualifiers: Site of cellulitis: extremity Site of cellulitis of extremity: upper extremity Laterality: left Qualified Code(s): L03.114 - Cellulitis of left upper limb (12) Chest pain Code(s): R07.9 - CHEST PAIN, UNSPECIFIED Qualifiers: Chest pain type: unspecified Qualified Code(s): R07.9 - Chest pain, uns pecified (13) HTN (hypertension) Code(s): I10 - ESSENTIAL (PRIMARY) HYPERTENSION (14) Hyperlipemia Code(s): E78.5 - HYPERLIPIDEMIA, UNSPECIFIED (15) Lymphedema Code(s): I89.0 - LYMPHEDEMA, NOT ELSEWHERE CLASSIFIED (16) Lymphedema of both lower extremities Code(s): I89.0 - LYMPHEDEMA, NOT ELSEWHERE CLASSIFIED (17) Syncope Code(s): R55 - SYNCOPE AND COLLAPSE Qualifiers: Syncope type: unspecified Qualified Code(s): R55 - Syncope and collapse (18) Mild mitral regurgitation Code(s): I34.0 - NONRHEUMATIC MITRAL (VALVE) INSUFFICIENCY (19) Moderate pulmonary arterial systolic hypertension Code(s): I27.21 - SECONDARY PULMONARY ARTERIAL HYPERTENSION Assessment/Plan Assessment/plan: acute shortness of breath, acute exacerbation of diastolic CHF, acute iron deficiency anemia, interstitial pulmonary vascular congestion with bilteral pleural effusion with compressive atelectasis, abnormal LV diastolic compliance, mild MR, moderate pulmonary hypertensio, HTN, HLD, s/p CABG, chronic lymphedema; IV Furosemide for diastolic CHF, venofer infusion for iron deficiency anemia, DVT/GI prophylaxis, atorvastatin for HLD, metoprolol for CAD, oxygen 3L/min via nasal cannula with spo2 98%, potassium chloride for hypokalemia, out of bed in chair as tolerated, physical therapy.
[2019-09-27] MEDS ORDERED: PT OWN MED DRAWER 7, Y5N ONE (08:56)
[2019-09-27] MEDS: ENOXAPARIN NA (PORCINE) 40 MG/0.4 ML DISP.SYRIN SQ SCH (09:05)
[2019-09-27] MEDS: CYANOCOBALAMIN 1,000 MCG TABLET (FP) PO SCH (09:06)
[2019-09-27] MEDS: FOLIC ACID 1 MG TABLET (FP) PO SCH (09:06)
[2019-09-27] MEDS: POTASSIUM CHLORIDE TABS 20 MEQ TABLET.ER (FP) PO SCH (09:06)
[2019-09-27] MEDS: MEMANTINE HCL 10 MG TABLET (FP) PO SCH ×2 (09:06→21:27)
[2019-09-27] MEDS: metoPROLOL SUCCINATE 25 MG TAB.SR.24H (FP) PO SCH (09:06)
[2019-09-27] MEDS: FUROSEMIDE 40 MG/4 ML INJECTABLE VIAL IVPUSH SCH (10:10)
[2019-09-27] MEDS: PANTOPRAZOLE SODIUM 40 MG VIAL IVPUSH SCH (10:11)
[2019-09-27 13:09] LABS: ANISOCYTOSIS 3+; MACROCYTOSIS 0; OVALOCYTE 2+
[2019-09-27 13:33] LABS: PLATELET ESTIMATE ADEQUATE
[2019-09-27] MEDS: ATORVASTATIN CA 40 MG TABLET (FP) PO SCH (21:27)
[2019-09-28 07:21] LABS: HEMATOCRIT 34.1 % (32.4-45.2); HEMOGLOBIN 10.4 GM/dL (10.7-15.3); MCHC 30.4 g/dl (32.0-36.0); MEAN CELL VOLUME 68.9 fl (80-96); MEAN PLT VOLUME 9.6 fl (7.5-11.1); PLATELET COUNT 248 K/MM3 (134-434); RBC 4.95 M/mm3 (3.60-5.2); RDW 28.5 % (11.6-15.6); WHITE BLOOD COUNT 7.3 K/mm3 (4.0-10.0)
[2019-09-28 07:43] LABS: ALBUMIN 3.2 g/dl (3.4-5.0); BLOOD UREA NITROGEN 17.2 mg/dL (7-18); CALCIUM 9.2 mg/dL (8.5-10.1); POTASSIUM 4.2 mmol/L (3.5-5.1)
[2019-09-28 07:45] LABS: BILIRUBIN,TOTAL 0.6 mg/dL (0.2-1); CREATININE 0.7 mg/dL (0.55-1.3); TOT PROT 6.9 g/dl (6.4-8.2)
--- NOTE | 2019-09-28 07:59 | PN ---
Progress Note, Physician Chief Complaint: Patient seen and examined at the bedside in ICU, no acute events from last night, no labored breathing. History of Present Illness: This 84 yr old w/f with PMH of HTN, HLD, s/p CABG, chronic lymphedema, bilateral knee replacement, s/p cataract surgery admitted with acute shortness of breath, acute exacerbation of diastolic CHF, acute iron deficiency anemia, abnormal LV diastolic compliance, mild MR, moderate pulmonary hypertension, interstitial pulmonary vascular congestion with bilateral pleural effusion with compressive atelectasis. - Current Medication List Current Medications: Active Medications Acetaminophen (Tylenol -) 650 mg PO Q6H PRN PRN Reason: PAIN LEVEL 4 - 6 Last Admin: 09/26/19 21:18 Dose: 650 mg Documented by: Atorvastatin Calcium (Lipitor -) 40 mg PO HS [facility] Last Admin: 09/27/19 21:27 Dose: 40 mg Documented by: Cyanocobalamin (Vitamin B12 -) 1,000 mcg PO DAILY [facility] Last Admin: 09/27/19 09:06 Dose: 1,000 mcg Documented by: Enoxaparin Sodium (Lovenox -) 40 mg SQ DAILY [facility] Last Admin: 09/27/19 09:05 Dose: 40 mg Documented by: Folic Acid (Folic Acid -) 1 mg PO DAILY [facility] Last Admin: 09/27/19 09:06 Dose: 1 mg Documented by: Furosemide (Lasix Injection -) 40 mg IVPUSH DAILY [facility] Last Admin: 09/27/19 10:10 Dose: 40 mg Documented by: Memantine (Namenda -) 10 mg PO BID [facility] Last Admin: 09/27/19 21:27 Dose: 10 mg Documented by: Metoprolol Succinate (Toprol Xl -) 25 mg PO DAILY [facility] Last Admin: 09/27/19 09:06 Dose: 25 mg Documented by: Pantoprazole Sodium (Protonix Iv) 40 mg IVPUSH DAILY [facility] Last Admin: 09/27/19 10:11 Dose: 40 mg Documented by: Potassium Chloride (K-Dur -) 20 meq PO DAILY [facility] Last Admin: 09/27/19 09:06 Dose: 20 meq Documented by: Senna (Senna -) 2 tab PO HS PRN PRN Reason: CONSTIPATION Last Admin: 09/25/19 21:57 Dose: 2 tab Documented by: - Objective Vital Signs: Vital Signs Temperature 98.4 F 09/28/19 05:50 Pulse Rate 80 09/28/19 05:50 Respiratory Rate 20 09/28/19 05:50 Blood Pressure 158/71 09/28/19 05:50 O2 Sat by Pulse Oximetry (%) 95 09/28/19 05:50 Constitutional: Yes: Well Nourished, No Distress, Calm Eyes: Yes: Conjunctiva Clear, EOM Intact HENT: Yes: Atraumatic, Normocephalic Neck: Yes: Supple, Trachea Midline Cardiovascular: Yes: Regular Rate and Rhythm Respiratory: Yes: Regular, CTA Bilaterally Gastrointestinal: Yes: Normal Bowel Sounds, Soft ...Rectal Exam: Yes: Deferred Genitourinary: Yes: Incontinence (6h) Breast(s): Yes: WNL Musculoskeletal: Yes: Muscle Weakness Extremities: Yes: Other (chronic lymphedema) Edema: Yes Edema: LLE: 3+, RLE: 3+ Peripheral Pulses WNL: Yes Integumentary: Yes: Skin Tear (left groin) Neurological: Yes: Alert, Unsteady Gait, Weakness ...Motor Strength: LUE (generalized muscle weakness of all extremities) Psychiatric: Yes: Alert Labs: CBC, BMP 09/28/19 05:40 09/28/19 05:40 INR, PTT INR 1.08 (0.83-1.09) 09/23/19 11:15 - ....Imaging Other: Report Reviewed (lab data reviewed) Problem List - Problems (1) Shortness of breath Code(s): R06.02 - SHORTNESS OF BREATH (2) Pulmonary vascular congestion Code(s): R09.89 - OTH SYMPTOMS AND SIGNS INVOLVING THE CIRC AND RESP SYSTEMS (3) Bilateral pleural effusion Code(s): J90 - PLEURAL EFFUSION, NOT ELSEWHERE CLASSIFIED (4) Atelectasis Code(s): J98.11 - ATELECTASIS (5) Hiatal hernia Code(s): K44.9 - DIAPHRAGMATIC HERNIA WITHOUT OBSTRUCTION OR GANGRENE (6) Moderate tricuspid regurgitation Code(s): I07.1 - RHEUMATIC TRICUSPID INSUFFICIENCY (7) Acute on chronic diastolic CHF (congestive heart failure) Code(s): I50.33 - ACUTE ON CHRONIC DIASTOLIC (CONGESTIVE) HEART FAILURE (8) 3-vessel CAD Code(s): I25.10 - ATHSCL HEART DISEASE OF [place] CORONARY ARTERY W/O ANG PCTRS (9) Atypical chest pain Code(s): R07.89 - OTHER CHEST PAIN (10) CAD of autologous bypass graft Code(s): I25.810 - ATHEROSCLEROSIS OF CABG W/O ANGINA PECTORIS (11) Cellulitis Code(s): L03.90 - CELLULITIS, UNSPECIFIED Qualifiers: Site of cellulitis: extremity Site of cellulitis of extremity: upper ex tremity Laterality: left Qualified Code(s): L03.114 - Cellulitis of left upper limb (12) Chest pain Code(s): R07.9 - CHEST PAIN, UNSPECIFIED Qualifiers: Chest pain type: unspecified Qualified Code(s): R07.9 - Chest pain, unspecified (13) HTN (hypertension) Code(s): I10 - ESSENTIAL (PRIMARY) HYPERTENSION (14) Hyperlipemia Code(s): E78.5 - HYPERLIPIDEMIA, UNSPECIFIED (15) Lymphedema Code(s): I89.0 - LYMPHEDEMA, NOT ELSEWHERE CLASSIFIED (16) Lymphedema of both lower extremities Code(s): I89.0 - LYMPHEDEMA, NOT ELSEWHERE CLASSIFIED (17) Syncope Code(s): R55 - SYNCOPE AND COLLAPSE Qualifiers: Syncope type: unspecified Qualified Code(s): R55 - Syncope and collapse (18) Mild mitral regurgitation Code(s): I34.0 - NONRHEUMATIC MITRAL (VALVE) INSUFFICIENCY (19) Moderate pulmonary arterial systolic hypertension Code(s): I27.21 - SECONDARY PULMONARY ARTERIAL HYPERTENSION Assessment/Plan Assessment/plan: acute shortness of breath, acute exacerbation of diastolic CHF, acute iron deficiency anemia, HTN, HLD, s/p CABG, chronic lymphedema, abnormal LV diastolic compliance, mild MR, moderate pulmonary hypertension, interstitial pulmonary vascular congestion with bilateral pleural effusion with compressive atelectasis; IV Furosemide for diastolic CHF, DVT/GI prophylaxis, IV venofer for iron deficiency anemia, potassium chloride for hypokalemia, atorvastatin for HLD, metoprolol for HTN, out of bed in chair as tolerated, physical therapy.
--- NOTE | 2019-09-28 09:10 | PN ---
Progress Note, Physician Chief Complaint: sob History of Present Illness: denies sob, says she feels better no cp no palp, swelling - Current Medication List Current Medications: Active Medications Acetaminophen (Tylenol -) 650 mg PO Q6H PRN PRN Reason: PAIN LEVEL 4 - 6 Last Admin: 09/26/19 21:18 Dose: 650 mg Documented by: Atorvastatin Calcium (Lipitor -) 40 mg PO HS [facility] Last Admin: 09/27/19 21:27 Dose: 40 mg Documented by: Cyanocobalamin (Vitamin B12 -) 1,000 mcg PO DAILY [facility] Last Admin: 09/27/19 09:06 Dose: 1,000 mcg Documented by: Enoxaparin Sodium (Lovenox -) 40 mg SQ DAILY [facility] Last Admin: 09/27/19 09:05 Dose: 40 mg Documented by: Folic Acid (Folic Acid -) 1 mg PO DAILY [facility] Last Admin: 09/27/19 09:06 Dose: 1 mg Documented by: Furosemide (Lasix Injection -) 40 mg IVPUSH DAILY [facility] Last Admin: 09/27/19 10:10 Dose: 40 mg Documented by: Memantine (Namenda -) 10 mg PO BID [facility] Last Admin: 09/27/19 21:27 Dose: 10 mg Documented by: Metoprolol Succinate (Toprol Xl -) 25 mg PO DAILY [facility] Last Admin: 09/27/19 09:06 Dose: 25 mg Documented by: Pantoprazole Sodium (Protonix Iv) 40 mg IVPUSH DAILY [facility] Last Admin: 09/27/19 10:11 Dose: 40 mg Documented by: Potassium Chloride (K-Dur -) 20 meq PO DAILY [facility] Last Admin: 09/27/19 09:06 Dose: 20 meq Documented by: Senna (Senna -) 2 tab PO HS PRN PRN Reason: CONSTIPATION Last Admin: 09/25/19 21:57 Dose: 2 tab Documented by: - Objective Vital Signs: Vital Signs Temperature 98.4 F 09/28/19 05:50 Pulse Rate 85 09/28/19 08:00 Respiratory Rate 20 09/28/19 08:00 Blood Pressure 148/52 L 09/28/19 08:00 O2 Sat by Pulse Oximetry (%) 94 L 09/28/19 08:00 Constitutional: Yes: Well Nourished, No Distress, Calm Cardiovascular: Yes: Regular Rate and Rhythm, S1, S2. No: JVD, Gallop, Murmur Respiratory: Yes: Regular, CTA Bilaterally. No: Accessory Muscle Use, Rales, Wheezes Extremities: No: Cold Edema: No Neurological: Yes: Alert. No: Seizure Psychiatric: No: Agitated Labs: CBC, BMP 09/28/19 05:40 09/28/19 05:40 INR, PTT INR 1.08 (0.83-1.09) 09/23/19 11:15 Assessment/Plan Echo 08/2019: nl LV function. RV nl. mild MR, mod pulm HTN PASP 49 mmHg tele: NSR, artifact Assessment/Plan 84 year old female with a significant PMH of CAD (s/p 3 vessel CABG in 2016), dementia, anemia, HTN, hyperlipidemia, chronic bilateral LE edema, sent to ER from [facility] for sob and hypoxia. sob/hypoxia, anemia, acute on chronic diastolic chf: -pt with congestion and effusions on cxr and significant le edema, likely contributing to her sob/hypoxia. She also had significant anemia with hgb in 6s. - s/p PRBC transfusion - clinically improved on Lasix 40mg IV daily. CXR now with no signs congestion. clinically improved, appears euvolemic. was on lasix 40 qd prior to admit--change to 40 bid -anemia eval, GI consulted -no signs acs -nl LV function on echo with mod pulm HTN CP, cad s/p cabg: -stable, as above -cont statin, bb -hold asa due to severe anemia htn: -held home toprol due to low bp initially, now resumed hld: -cont statin
[2019-09-28] MEDS ORDERED: PT OWN MED DRAWER 7, Y5N ONE (09:43)
[2019-09-28] MEDS: FOLIC ACID 1 MG TABLET (FP) PO SCH (09:46)
[2019-09-28] MEDS: FUROSEMIDE 40 MG/4 ML INJECTABLE VIAL IVPUSH SCH (09:46)
[2019-09-28] MEDS: ENOXAPARIN NA (PORCINE) 40 MG/0.4 ML DISP.SYRIN SQ SCH (09:46)
[2019-09-28] MEDS: POTASSIUM CHLORIDE TABS 20 MEQ TABLET.ER (FP) PO SCH (09:46)
[2019-09-28] MEDS: PANTOPRAZOLE SODIUM 40 MG VIAL IVPUSH SCH (09:47)
[2019-09-28] MEDS: metoPROLOL SUCCINATE 25 MG TAB.SR.24H (FP) PO SCH (09:47)
[2019-09-28] MEDS: CYANOCOBALAMIN 1,000 MCG TABLET (FP) PO SCH (09:47)
[2019-09-28] MEDS: MEMANTINE HCL 10 MG TABLET (FP) PO SCH ×2 (09:47→21:22)
[2019-09-28 10:32] LABS: ANISOCYTOSIS 1+; MACROCYTOSIS 0; PLATELET ESTIMATE NORMAL
[2019-09-28] MEDS: ATORVASTATIN CA 40 MG TABLET (FP) PO SCH (21:22)
[2019-09-29] MEDS: FUROSEMIDE 40 MG TABLET (FP) PO SCH ×2 (05:38→14:56)
--- NOTE | 2019-09-29 06:38 | PN ---
Progress Note, Physician Chief Complaint: no CP, sob, palps TELE: NSR - Current Medication List Current Medications: Active Medications Acetaminophen (Tylenol -) 650 mg PO Q6H PRN PRN Reason: PAIN LEVEL 4 - 6 Last Admin: 09/26/19 21:18 Dose: 650 mg Documented by: Atorvastatin Calcium (Lipitor -) 40 mg PO HS [facility] Last Admin: 09/28/19 21:22 Dose: 40 mg Documented by: Cyanocobalamin (Vitamin B12 -) 1,000 mcg PO DAILY [facility] Last Admin: 09/28/19 09:47 Dose: 1,000 mcg Documented by: Enoxaparin Sodium (Lovenox -) 40 mg SQ DAILY [facility] Last Admin: 09/28/19 09:46 Dose: 40 mg Documented by: Folic Acid (Folic Acid -) 1 mg PO DAILY [facility] Last Admin: 09/28/19 09:46 Dose: 1 mg Documented by: Furosemide (Lasix -) 40 mg PO BID@0600,1400 [facility] Last Admin: 09/29/19 05:38 Dose: 40 mg Documented by: Memantine (Namenda -) 10 mg PO BID [facility] Last Admin: 09/28/19 21:22 Dose: 10 mg Documented by: Metoprolol Succinate (Toprol Xl -) 25 mg PO DAILY [facility] Last Admin: 09/28/19 09:47 Dose: 25 mg Documented by: Pantoprazole Sodium (Protonix Iv) 40 mg IVPUSH DAILY [facility] Last Admin: 09/28/19 09:47 Dose: 40 mg Documented by: Potassium Chloride (K-Dur -) 20 meq PO DAILY [facility] Last Admin: 09/28/19 09:46 Dose: 20 meq Documented by: Senna (Senna -) 2 tab PO HS PRN PRN Reason: CONSTIPATION Last Admin: 09/25/19 21:57 Dose: 2 tab Documented by: - Objective Vital Signs: Vital Signs Temperature 98.6 F 09/29/19 02:00 Pulse Rate 92 H 09/29/19 04:00 Respiratory Rate 16 09/29/19 04:00 Blood Pressure 130/70 09/29/19 04:00 O2 Sat by Pulse Oximetry (%) 93 L 09/29/19 04:00 Constitutional: Yes: No Distress, Calm Eyes: Yes: Conjunctiva Clear Cardiovascular: Yes: Regular Rate and Rhythm Respiratory: Yes: CTA Bilaterally Gastrointestinal: Yes: Soft (nt) Edema: No Neurological: Yes: Alert, Oriented ...Motor Strength: WNL Labs: CBC, BMP 09/28/19 05:40 09/28/19 05:40 INR, PTT INR 1.08 (0.83-1.09) 09/23/19 11:15 Laboratory Tests 09/23/19 09/29/19 09/29/19 17:10 05:52 05:52 WBC 6.3 RBC 4.95 Hgb 10.3 L Plt Count 239 Sodium 145 Potassium 4.1 Creatinine 0.7 COVID-19 ([facility]) Not detected - ....Imaging EKG: Image Reviewed Assessment/Plan DATA: Echo 08/2019: nl LV function. RV nl. mild MR, mod pulm HTN PASP 49 mmHg tele: NSR, artifact Assessment/Plan 84 year old female with a significant PMH of CAD (s/p 3 vessel CABG in 2015), dementia, anemia, HTN, hyperlipidemia, chronic bilateral LE edema, sent to ER from [facility] for sob and hypoxia. sob/hypoxia, anemia, acute on chronic diastolic chf: -pt with congestion and effusions on cxr and significant le edema, likely contributing to her sob/hypoxia. She also had significant anemia with hgb in 6s. - s/p PRBC transfusion - clinically improved on Lasix 40mg IV daily. CXR now with no signs congestion. appears euvolemic. was on lasix 40 qd prior to admit--change to 40 bid -anemia eval, GI consulted -no signs acs -nl LV function on echo with mod pulm HTN CP, cad s/p cabg: -stable, as above -cont statin, bb -hold asa due to severe anemia htn: -held home toprol due to low bp initially, now resumed hld: -cont statin DVT prophylaxis: On Lovenox
[2019-09-29 07:18] LABS: BASO % 0.6 % (0-2.0); EOS % 1.8 % (0-4.5); HEMATOCRIT 34.7 % (32.4-45.2); HEMOGLOBIN 10.3 GM/dL (10.7-15.3); LYMPH % 15.3 % (8-40); MCH 20.9 pg (25.7-33.7); MCHC 29.8 g/dl (32.0-36.0); MEAN PLT VOLUME 9.5 fl (7.5-11.1); MONO % 7.2 % (3.8-10.2); NEUT % 75.1 % (42.8-82.8); PLATELET COUNT 239 K/MM3 (134-434); RBC 4.95 M/mm3 (3.60-5.2); RDW 29.5 % (11.6-15.6); WHITE BLOOD COUNT 6.3 K/mm3 (4.0-10.0)
[2019-09-29 07:40] LABS: ALBUMIN 3.1 g/dl (3.4-5.0); BILIRUBIN,TOTAL 0.7 mg/dL (0.2-1); BLOOD UREA NITROGEN 18.2 mg/dL (7-18); CREATININE 0.7 mg/dL (0.55-1.3); POTASSIUM 4.1 mmol/L (3.5-5.1); TOT PROT 6.6 g/dl (6.4-8.2)
--- NOTE | 2019-09-29 08:55 | PN ---
Progress Note, Physician Chief Complaint: Patient seen and examined at the bedside, no acute events from last night, no labored breathing. History of Present Illness: This 84 yr old w/f with PMH of HTN, HLD, CHF, s/p CABG, chronic lymphedema, vascular dementia admitted via ER with an acute shortness of breath, acute diastolic CHF, acute iron deficiency anemia, abnormal LV diastolic compliance, mild MR, large hiatal hernia, moderate pulmonary hypertension, interstitial pulmonary vascular congestion with bilateral pleural effusion and bibasilar compressive atelectasis. - Current Medication List Current Medications: Active Medications Acetaminophen (Tylenol -) 650 mg PO Q6H PRN PRN Reason: PAIN LEVEL 4 - 6 Last Admin: 09/26/19 21:18 Dose: 650 mg Documented by: Atorvastatin Calcium (Lipitor -) 40 mg PO HS [facility] Last Admin: 09/28/19 21:22 Dose: 40 mg Documented by: Cyanocobalamin (Vitamin B12 -) 1,000 mcg PO DAILY [facility] Last Admin: 09/28/19 09:47 Dose: 1,000 mcg Documented by: Enoxaparin Sodium (Lovenox -) 40 mg SQ DAILY [facility] Last Admin: 09/28/19 09:46 Dose: 40 mg Documented by: Folic Acid (Folic Acid -) 1 mg PO DAILY [facility] Last Admin: 09/28/19 09:46 Dose: 1 mg Documented by: Furosemide (Lasix -) 40 mg PO BID@0600,1400 [facility] Last Admin: 09/29/19 05:38 Dose: 40 mg Documented by: Memantine (Namenda -) 10 mg PO BID [facility] Last Admin: 09/28/19 21:22 Dose: 10 mg Documented by: Metoprolol Succinate (Toprol Xl -) 25 mg PO DAILY [facility] Last Admin: 09/28/19 09:47 Dose: 25 mg Documented by: Pantoprazole Sodium (Protonix Iv) 40 mg IVPUSH DAILY [facility] Last Admin: 09/28/19 09:47 Dose: 40 mg Documented by: Potassium Chloride (K-Dur -) 20 meq PO DAILY [facility] Last Admin: 09/28/19 09:46 Dose: 20 meq Documented by: Senna (Senna -) 2 tab PO HS PRN PRN Reason: CONSTIPATION Last Admin: 09/25/19 21:57 Dose: 2 tab Documented by: - Objective Vital Signs: Vital Signs Temperature 98.3 F 09/29/19 06:00 Pulse Rate 75 09/29/19 06:00 Respiratory Rate 17 09/29/19 06:00 Blood Pressure 133/56 L 09/29/19 06:00 O2 Sat by Pulse Oximetry (%) 92 L 09/29/19 06:00 Constitutional: Yes: Well Nourished, No Distress, Calm Eyes: Yes: Conjunctiva Clear, EOM Intact HENT: Yes: Atraumatic, Normocephalic Neck: Yes: Supple, Trachea Midline Respiratory: Yes: Regular, CTA Bilaterally Gastrointestinal: Yes: Normal Bowel Sounds, Soft ...Rectal Exam: Yes: Deferred Genitourinary: Yes: Incontinence Breast(s): Yes: WNL Musculoskeletal: Yes: Muscle Weakness Extremities: Yes: Other (bilateral chronic lymphedema) Edema: Yes Edema: LLE: 3+, RLE: 3+ Peripheral Pulses WNL: Yes Integumentary: Yes: WNL Neurological: Yes: Alert, Confusion, Unsteady Gait, Weakness ...Motor Strength: LUE (generalized muscle weakness of all extremities) Psychiatric: Yes: Alert Labs: CBC, BMP 09/29/19 05:52 09/29/19 05:52 INR, PTT INR 1.08 (0.83-1.09) 09/23/19 11:15 - ....Imaging Other: Report Reviewed (lab data reviewed) Problem List - Problems (1) Shortness of breath Code(s): R06.02 - SHORTNESS OF BREATH (2) Pulmonary vascular congestion Code(s): R09.89 - OTH SYMPTOMS AND SIGNS INVOLVING THE CIRC AND RESP SYSTEMS (3) Bilateral pleural effusion Code(s): J90 - PLEURAL EFFUSION, NOT ELSEWHERE CLASSIFIED (4) Atelectasis Code(s): J98.11 - ATELECTASIS (5) Hiatal hernia Code(s): K44.9 - DIAPHRAGMATIC HERNIA WITHOUT OBSTRUCTION OR GANGRENE (6) Moderate tricuspid regurgitation Code(s): I07.1 - RHEUMATIC TRICUSPID INSUFFICIENCY (7) Acute on chronic diastolic CHF (congestive heart failure) Code(s): I50.33 - ACUTE ON CHRONIC DIASTOLIC (CONGESTIVE) HEART FAILURE (8) 3-vessel CAD Code(s): I25.10 - ATHSCL HEART DISEASE OF [place] CORONARY ARTERY W/O ANG PCTRS (9) Atypical chest pain Code(s): R07.89 - OTHER CHEST PAIN (10) CAD of autologous bypass graft Code(s): I25.810 - ATHEROSCLEROSIS OF CABG W/O ANGINA PECTORIS (11) Cellulitis Code(s): L03.90 - CELLULITIS, UNSPECIFIED Qualifiers: Site of cellulitis: extremity Site of cellulitis of extremity: upper extremity Laterality: left Qualified Code(s): L03.114 - Cellulitis of left upper limb (12) Chest pain Code(s): R07.9 - CHEST PAIN, UNSPECIFIED Qualifiers: Chest pain type: unspecified Qualified Code(s): R07.9 - Chest pain, unspecified (13) HTN (hypertension) Code(s): I10 - ESSENTIAL (PRIMARY) HYPERTENSION (14) Hyperlipemia Code(s): E78.5 - HYPERLIPIDEMIA, UNSPECIFIED (15) Lymphedema Code(s): I89.0 - LYMPHEDEMA, NOT ELSEWHERE CLASSIFIED (16) Lymphedema of both lower extremities Code(s): I89.0 - LYMPHEDEMA, NOT ELSEWHERE CLASSIFIED (17) Syncope Code(s): R55 - SYNCOPE AND COLLAPSE Qualifiers: Syncope type: unspecified Qualified Code(s): R55 - Syncope and collapse (18) Mild mitral regurgitation Code(s): I34.0 - NONRHEUMATIC MITRAL (VALVE) INSUFFICIENCY (19) Moderate pulmonary arterial systolic hypertension Code(s): I27.21 - SECONDARY PULMONARY ARTERIAL HYPERTENSION Assessment/Plan Assessment/plan: acute shortness of breath, acute exacerbation of diastolic CHF, acutely severe iron deficiency anemia, abnormal LV diastolic compliance, moder ate pulmonary hypertension, vascular dementia, large hiatal hernia, mild MR, interstitial pulmonary vascular congestion with bilateral pleural effusion and bibasilar compressive atelectasis; oral Furosemide, potassium chloride, DVT/GI prophylaxis, atorvastatin for HLD, metoprolol for HTN, oxygen saturation 96% on room air.
[2019-09-29] MEDS ORDERED: PT OWN MED DRAWER 7, Y5N ONE (09:44)
[2019-09-29] MEDS: CYANOCOBALAMIN 1,000 MCG TABLET (FP) PO SCH (10:41)
[2019-09-29] MEDS: PANTOPRAZOLE SODIUM 40 MG VIAL IVPUSH SCH (10:42)
[2019-09-29] MEDS: ENOXAPARIN NA (PORCINE) 40 MG/0.4 ML DISP.SYRIN SQ SCH (10:42)
[2019-09-29] MEDS: POTASSIUM CHLORIDE TABS 20 MEQ TABLET.ER (FP) PO SCH (10:42)
[2019-09-29] MEDS: FOLIC ACID 1 MG TABLET (FP) PO SCH (10:42)
[2019-09-29] MEDS: MEMANTINE HCL 10 MG TABLET (FP) PO SCH ×2 (10:43→21:48)
[2019-09-29] MEDS: metoPROLOL SUCCINATE 25 MG TAB.SR.24H (FP) PO SCH (12:15)
[2019-09-29] MEDS: ATORVASTATIN CA 40 MG TABLET (FP) PO SCH (21:48)
[2019-09-30] MEDS: FUROSEMIDE 40 MG TABLET (FP) PO SCH ×2 (06:17→14:51)
[2019-09-30 06:49] LABS: BASO % 0.7 % (0-2.0); EOS % 0.6 % (0-4.5); HEMATOCRIT 36.6 % (32.4-45.2); LYMPH % 16.4 % (8-40); MCH 21.1 pg (25.7-33.7); MCHC 30.1 g/dl (32.0-36.0); MEAN CELL VOLUME 70.3 fl (80-96); MEAN PLT VOLUME 9.9 fl (7.5-11.1); MONO % 9.9 % (3.8-10.2); NEUT % 72.4 % (42.8-82.8); PLATELET COUNT 239 K/MM3 (134-434); RBC 5.21 M/mm3 (3.60-5.2); RDW 29.4 % (11.6-15.6); WHITE BLOOD COUNT 6.3 K/mm3 (4.0-10.0)
[2019-09-30 07:08] LABS: BILIRUBIN,TOTAL 0.6 mg/dL (0.2-1); BLOOD UREA NITROGEN 26.7 mg/dL (7-18); CALCIUM 8.9 mg/dL (8.5-10.1); CREATININE 0.9 mg/dL (0.55-1.3); POTASSIUM 4.3 mmol/L (3.5-5.1); TOT PROT 6.8 g/dl (6.4-8.2)
--- NOTE | 2019-09-30 09:12 | PN ---
Progress Note, Physician Chief Complaint: Patient seen and examined at the bedside in ICU, no acute events from last night, no labored breathing. History of Present Illness: This 84 yr old w/f with PMH of HTN, HLD, s/p CABG, chronic lymphedema admitted via ER with an acute shortness of breath, acute diastolic CHF, acute iron deficiency anemia, abnormal LV diastolic compliance, mild MR, moderate pulmonary hypertension, large hiatal hernia, and interstitial pulmonary vascular congestion with bilateral pleural effusion with compressive atelectasis. - Current Medication List Current Medications: Active Medications Acetaminophen (Tylenol -) 650 mg PO Q6H PRN PRN Reason: PAIN LEVEL 4 - 6 Last Admin: 09/26/19 21:18 Dose: 650 mg Documented by: Atorvastatin Calcium (Lipitor -) 40 mg PO HS [facility] Last Admin: 09/29/19 21:48 Dose: 40 mg Documented by: Cyanocobalamin (Vitamin B12 -) 1,000 mcg PO DAILY [facility] Last Admin: 09/29/19 10:41 Dose: 1,000 mcg Documented by: Enoxaparin Sodium (Lovenox -) 40 mg SQ DAILY [facility] Last Admin: 09/29/19 10:42 Dose: 40 mg Documented by: Folic Acid (Folic Acid -) 1 mg PO DAILY [facility] Last Admin: 09/29/19 10:42 Dose: 1 mg Documented by: Furosemide (Lasix -) 40 mg PO BID@0600,1400 [facility] Last Admin: 09/30/19 06:17 Dose: 40 mg Documented by: Memantine (Namenda -) 10 mg PO BID [facility] Last Admin: 09/29/19 21:48 Dose: 10 mg Documented by: Metoprolol Succinate (Toprol Xl -) 25 mg PO DAILY [facility] Last Admin: 09/29/19 12:15 Dose: 25 mg Documented by: Pantoprazole Sodium (Protonix Iv) 40 mg IVPUSH DAILY [facility] Last Admin: 09/29/19 10:42 Dose: 40 mg Documented by: Potassium Chloride (K-Dur -) 20 meq PO DAILY [facility] Last Admin: 09/29/19 10:42 Dose: 20 meq Documented by: Senna (Senna -) 2 tab PO HS PRN PRN Reason: CONSTIPATION Last Admin: 09/25/19 21:57 Dose: 2 tab Documented by: - Objective Vital Signs: Vital Signs Temperature 97.7 F 09/30/19 08:49 Pulse Rate 82 09/30/19 08:49 Respiratory Rate 19 09/30/19 08:49 Blood Pressure 123/50 L 09/30/19 08:49 O2 Sat by Pulse Oximetry (%) 96 09/30/19 08:49 Constitutional: Yes: Well Nourished, No Distress, Calm Eyes: Yes: Conjunctiva Clear, EOM Intact HENT: Yes: Atraumatic, Normocephalic Neck: Yes: Supple, Trachea Midline Cardiovascular: Yes: Regular Rate and Rhythm Respiratory: Yes: Regular, CTA Bilaterally Gastrointestinal: Yes: Normal Bowel Sounds, Soft ...Rectal Exam: Yes: Deferred Genitourinary: Yes: Incontinence Breast(s): Yes: WNL Musculoskeletal: Yes: Muscle Weakness Extremities: Yes: Other (chronic lymphedema) Edema: Yes Edema: LLE: 3+, RLE: 3+ Peripheral Pulses WNL: Yes Integumentary: Yes: WNL Neurological: Yes: Alert, Confusion, Unsteady Gait, Weakness ...Motor Strength: LUE (generalized muscle weakness of all extremities) Psychiatric: Yes: Alert Labs: CBC, BMP 09/30/19 05:40 09/30/19 05:40 INR, PTT INR 1.08 (0.83-1.09) 09/23/19 11:15 - ....Imaging Other: Report Reviewed (lab data reviewed) Problem List - Problems (1) Shortness of breath Code(s): R06.02 - SHORTNESS OF BREATH (2) Pulmonary vascular congestion Code(s): R09.89 - OTH SYMPTOMS AND SIGNS INVOLVING THE CIRC AND RESP SYSTEMS (3) Bilateral pleural effusion Code(s): J90 - PLEURAL EFFUSION, NOT ELSEWHERE CLASSIFIED (4) Atelectasis Code(s): J98.11 - ATELECTASIS (5) Hiatal hernia Code(s): K44.9 - DIAPHRAGMATIC HERNIA WITHOUT OBSTRUCTION OR GANGRENE (6) Moderate tricuspid regurgitation Code(s): I07.1 - RHEUMATIC TRICUSPID INSUFFICIENCY (7) Acute on chronic diastolic CHF (congestive heart failure) Code(s): I50.33 - ACUTE ON CHRONIC DIASTOLIC (CONGESTIVE) HEART FAILURE (8) 3-vessel CAD Code(s): I25.10 - ATHSCL HEART DISEASE OF [place] CORONARY ARTERY W/O ANG PCTRS (9) Atypical chest pain Code(s): R07.89 - OTHER CHEST PAIN (10) CAD of autologous bypass graft Code(s): I25.810 - ATHEROSCLEROSIS OF CABG W/O ANGINA PECTORIS (11) Cellulitis Code(s): L03.90 - CELLULITIS, UNSPECIFIED Qualifiers: Site of cellulitis: extremity Site of cellulitis of extremity: upper extremity Laterality: left Qualified Code(s): L03.114 - Cellulitis of left upper limb (12) Chest pain Code(s): R07.9 - CHEST PAIN, UNSPECIFIED Qualifiers: Chest pain type: unspecified Qualified Code(s): R07.9 - Chest pain, unspecified (13) HTN (hypertension) Code(s): I10 - ESSENTIAL (PRIMARY) HYPERTENSION (14) Hyperlipemia Code(s): E78.5 - HYPERLIPIDEMIA, UNSPECIFIED (15) Lymphedema Code(s): I89.0 - LYMPHEDEMA, NOT ELSEWHERE CLASSIFIED (16) Lymphedema of both lower extremities Code(s): I89.0 - LYMPHEDEMA, NOT ELSEWHERE CLASSIFIED (17) Syncope Code(s): R55 - SYNCOPE AND COLLAPSE Qualifiers: Syncope type: unspecified Qualified Code(s): R55 - Syncope and collapse (18) Mild mitral regurgitation Code(s): I34.0 - NONRHEUMATIC MITRAL (VALVE) INSUFFICIENCY (19) Moderate pulmonary arterial systolic hypertension Code(s): I27.21 - SECONDARY PULMONARY ARTERIAL HYPERTENSION Assessment/Plan Assessment/plan: oral Furosemide 40mg po bid for acute shortness of breath and an acute diastolic CHF, SQ Lovenox and Pantoprazole for DVT/GI prophylaxis, oxygen saturation 96% on room air, atorvastatin for HLD, metoprolol for HTN, oral potassium chloride for hypokalemia, senna for constipation, physical therapy, discharge planning, social science instructor request.
[2019-09-30] MEDS: POTASSIUM CHLORIDE TABS 20 MEQ TABLET.ER (FP) PO SCH (10:09)
[2019-09-30] MEDS: ENOXAPARIN NA (PORCINE) 40 MG/0.4 ML DISP.SYRIN SQ SCH (10:09)
[2019-09-30] MEDS: PANTOPRAZOLE SODIUM 40 MG VIAL IVPUSH SCH (10:09)
[2019-09-30] MEDS: MEMANTINE HCL 10 MG TABLET (FP) PO SCH ×2 (10:09→21:15)
[2019-09-30] MEDS: FOLIC ACID 1 MG TABLET (FP) PO SCH (10:09)
[2019-09-30] MEDS: CYANOCOBALAMIN 1,000 MCG TABLET (FP) PO SCH (10:10)
[2019-09-30] MEDS: metoPROLOL SUCCINATE 25 MG TAB.SR.24H (FP) PO SCH (10:10)
[2019-09-30 11:19] LABS: ANISOCYTOSIS 2+; MACROCYTOSIS 2+; OVALOCYTE 1+; PLATELET ESTIMATE NORMAL
--- NOTE | 2019-09-30 12:16 | PN ---
Progress Note (short form) - Note Progress Note: CC: sob, hypoxia s: Denies cp sob palps dizzy loc pnd orthopnea. Current Medications Generic Name Dose Route Start Last Admin Trade Name Deborah PRN Reason Stop Dose Admin Acetaminophen 650 mg 09/23/19 18:27 09/26/19 21:18 Tylenol - PO 650 mg Q6H PRN Administration PAIN LEVEL 4 - 6 Atorvastatin Calcium 40 mg 09/23/19 22:00 09/29/19 21:48 Lipitor - PO 40 mg HS [facility] Administration Cyanocobalamin 1,000 mcg 09/24/19 10:00 09/30/19 10:10 Vitamin B12 - PO 1,000 mcg DAILY [facility] Administration Enoxaparin Sodium 40 mg 09/24/19 10:00 09/30/19 10:09 Lovenox - SQ 40 mg DAILY [facility] Administration Folic Acid 1 mg 09/24/19 10:00 09/30/19 10:09 Folic Acid - PO 1 mg DAILY [facility] Administration Furosemide 40 mg 09/29/19 06:00 09/30/19 06:17 Lasix - PO 40 mg BID@0600,1400 [facility] Administration Memantine 10 mg 09/23/19 22:00 09/30/19 10:09 Namenda - PO 10 mg BID [facility] Administration Metoprolol Succinate 25 mg 09/24/19 10:00 09/30/19 10:10 Toprol Xl - PO 25 mg DAILY [facility] Administration Pantoprazole Sodium 40 mg 09/23/19 18:45 09/30/19 10:09 Protonix Iv IVPUSH 40 mg DAILY [facility] Administration Potassium Chloride 20 meq 09/23/19 18:30 09/30/19 10:09 K-Dur - PO 20 meq DAILY [facility] Administration Senna 2 tab 09/23/19 22:00 09/25/19 21:57 Senna - PO 2 tab HS PRN Administration CONSTIPATION Vital Signs Period Temp Pulse Resp BP Sys/Rosenberg Pulse Ox Last 24 Hr 97.7 F-98.3 F 75-82 18-21 115-123/50-70 93-96 nad, calm jvd flat, neck supple ctab, nl effort rrr nl s1, s2, 2/6 sys murmur at sternal border + bs soft nt nd ext with trace LE edema bl, no cyanosis or clubbing + dp/pt, no carotid bruit alert, not oriented no jaundice, diaphoresis CBC, BMP 09/30/19 05:40 09/30/19 05:40 ekg: sr nl intervals no ischemic changes cxr: chf, b/l effs Echo 04/2017: nl lv/rv size/fn. 1+ mac. 1+ mr. mild-mod tr. rvsp nl. Echo 12/2014: nl LV size, nl overall EF; basal inferolat and [id number] IW hypo; conc LVH; nl RV; valves WNL; no pulm HTN echo 08/2019 nl LV function, E/A reversal, RV nl, mild MAC, mild MR, mod pulm HTN PASP 49 mmHg, calcification of AV without tele: sinus Assessment/Plan 84 year old female with a significant PMH of CAD (s/p 3 vessel CABG in 2015), dementia, anemia, HTN, hyperlipidemia, chronic bilateral LE edema, sent to ER from [facility] for sob and hypoxia. sob/hypoxia, anemia, acute on chronic diastolic chf: -pt with congestion and effusions on cxr and significant le edema, likely contributing to her sob/hypoxia. She also had significant anemia with hgb in 6s. - s/p PRBC transfusion - clinically improved on Lasix 40mg IV daily. CXR now with no signs congestion. appears euvolemic. was on lasix 40 qd prior to admit--now changed to 40 bid po -anemia eval, GI consulted -no signs acs -nl LV function on echo with mod pulm HTN CP, cad s/p cabg: -stable, as above -cont statin, bb -hold asa due to severe anemia htn: -held home toprol due to low bp initially, now resumed hld: -cont statin
[2019-09-30] MEDS: ATORVASTATIN CA 40 MG TABLET (FP) PO SCH (21:14)
[2019-10-01] MEDS: FUROSEMIDE 40 MG TABLET (FP) PO SCH ×2 (05:35→13:10)
[2019-10-01 07:39] LABS: BASO % 0.5 % (0-2.0); EOS % 0.1 % (0-4.5); HEMATOCRIT 36.5 % (32.4-45.2); HEMOGLOBIN 11.1 GM/dL (10.7-15.3); LYMPH % 10.6 % (8-40); MCH 21.5 pg (25.7-33.7); MCHC 30.5 g/dl (32.0-36.0); MEAN CELL VOLUME 70.7 fl (80-96); MEAN PLT VOLUME 9.9 fl (7.5-11.1); NEUT % 79.8 % (42.8-82.8); PLATELET COUNT 229 K/MM3 (134-434); RBC 5.17 M/mm3 (3.60-5.2); RDW 30.3 % (11.6-15.6); WHITE BLOOD COUNT 7.9 K/mm3 (4.0-10.0)
[2019-10-01 07:49] LABS: BILIRUBIN,TOTAL 0.8 mg/dL (0.2-1); BLOOD UREA NITROGEN 25.9 mg/dL (7-18); CREATININE 0.8 mg/dL (0.55-1.3); POTASSIUM 3.9 mmol/L (3.5-5.1); TOT PROT 6.8 g/dl (6.4-8.2)
--- NOTE | 2019-10-01 08:43 | PN ---
Progress Note, Physician Chief Complaint: Patient seen and examined at the bedside in ICU, no acute events from last night, refusing to take her oral meds and Covid test. History of Present Illness: This 84 yr old w/f with PMH of HTN, HLD, s/p CABG, chronic lymphedema, vascular dementia admitted via ER with an acute shortness of breath, acutely severe iron deficiency anemia, acute diastolic CHF, abnormal LV diastolic compliance, mild MR, moderate pulmonary hypertension, interstitial pulmonary vascular congestion with bilateral pleural effusion and bibasilar compressive atelectasis. - Current Medication List Current Medications: Active Medications Acetaminophen (Tylenol -) 650 mg PO Q6H PRN PRN Reason: PAIN LEVEL 4 - 6 Last Admin: 09/26/19 21:18 Dose: 650 mg Documented by: Atorvastatin Calcium (Lipitor -) 40 mg PO HS [facility] Last Admin: 09/30/19 21:14 Dose: 40 mg Documented by: Cyanocobalamin (Vitamin B12 -) 1,000 mcg PO DAILY [facility] Last Admin: 09/30/19 10:10 Dose: 1,000 mcg Documented by: Enoxaparin Sodium (Lovenox -) 40 mg SQ DAILY [facility] Last Admin: 09/30/19 10:09 Dose: 40 mg Documented by: Folic Acid (Folic Acid -) 1 mg PO DAILY [facility] Last Admin: 09/30/19 10:09 Dose: 1 mg Documented by: Furosemide (Lasix -) 40 mg PO BID@0600,1400 [facility] Last Admin: 10/01/19 05:35 Dose: 40 mg Documented by: Memantine (Namenda -) 10 mg PO BID [facility] Last Admin: 09/30/19 21:15 Dose: 10 mg Documented by: Metoprolol Succinate (Toprol Xl -) 25 mg PO DAILY [facility] Last Admin: 09/30/19 10:10 Dose: 25 mg Documented by: Pantoprazole Sodium (Protonix Iv) 40 mg IVPUSH DAILY [facility] Last Admin: 09/30/19 10:09 Dose: 40 mg Documented by: Potassium Chloride (K-Dur -) 20 meq PO DAILY [facility] Last Admin: 09/30/19 10:09 Dose: 20 meq Documented by: Senna (Senna -) 2 tab PO HS PRN PRN Reason: CONSTIPATION Last Admin: 09/25/19 21:57 Dose: 2 tab Documented by: - Objective Vital Signs: Vital Signs Temperature 98.1 F 10/01/19 02:15 Pulse Rate 85 10/01/19 02:15 Respiratory Rate 21 H 10/01/19 02:15 Blood Pressure 123/46 L 10/01/19 06:00 O2 Sat by Pulse Oximetry (%) 93 L 09/30/19 20:00 Constitutional: Yes: Well Nourished, No Distress, Calm Eyes: Yes: Conjunctiva Clear, EOM Intact HENT: Yes: Atraumatic, Normocephalic Neck: Yes: Supple, Trachea Midline Cardiovascular: Yes: Regular Rate and Rhythm Respiratory: Yes: Regular, CTA Bilaterally Gastrointestinal: Yes: Normal Bowel Sounds, Soft ...Rectal Exam: Yes: Deferred Genitourinary: Yes: Incontinence Breast(s): Yes: WNL Musculoskeletal: Yes: Muscle Weakness Extremities: Yes: Other (chronic lymphedema) Edema: Yes Edema: LLE: 3+, RLE: 3+ Peripheral Pulses WNL: Yes Integumentary: Yes: WNL Neurological: Yes: Alert, Unsteady Gait, Weakness ...Motor Strength: LUE (generalized muscle weakness of all extremities) Psychiatric: Yes: Alert Labs: CBC, BMP 10/01/19 05:40 INR, PTT INR 1.08 (0.83-1.09) 09/23/19 11:15 - ....Imaging Other: Report Reviewed (lab data reviewed) Problem List - Problems (1) Shortness of breath Code(s): R06.02 - SHORTNESS OF BREATH (2) Pulmonary vascular congestion Code(s): R09.89 - OTH SYMPTOMS AND SIGNS INVOLVING THE CIRC AND RESP SYSTEMS (3) Bilateral pleural effusion Code(s): J90 - PLEURAL EFFUSION, NOT ELSEWHERE CLASSIFIED (4) Atelectasis Code(s): J98.11 - ATELECTASIS (5) Hiatal hernia Code(s): K44.9 - DIAPHRAGMATIC HERNIA WITHOUT OBSTRUCTION OR GANGRENE (6) Moderate tricuspid regurgitation Code(s): I07.1 - RHEUMATIC TRICUSPID INSUFFICIENCY (7) Acute on chronic diastolic CHF (congestive heart failure) Code(s): I50.33 - ACUTE ON CHRONIC DIASTOLIC (CONGESTIVE) HEART FAILURE (8) 3-vessel CAD Code(s): I25.10 - ATHSCL HEART DISEASE OF [place] CORONARY ARTERY W/O ANG PCTRS (9) Atypical chest pain Code(s): R07.89 - OTHER CHEST PAIN (10) CAD of autologous bypass graft Code(s): I25.810 - ATHEROSCLEROSIS OF CABG W/O ANGINA PECTORIS (11) Cellulitis Code(s): L03.90 - CELLULITIS, UNSPECIFIED Qualifiers: Site of cellulitis: extremity Site of cellulitis of extremity: upper extremity Laterality: left Qualified Code(s): L03.114 - Cellulitis of left upper limb (12) Chest pain Code(s): R07.9 - CHEST PAIN, UNSPECIFIED Qualifiers: Chest pain type: unspecified Qualified Code(s): R07.9 - Chest pain, unspecified (13) HTN (hypertension) Code(s): I10 - ESSENTIAL (PRIMARY) HYPERTENSION (14) Hyperlipemia Code(s): E78.5 - HYPERLIPIDEMIA, UNSPECIFIED (15) Lymphedema Code(s): I89.0 - LYMPHEDEMA, NOT ELSEWHERE CLASSIFIED (16) Lymphedema of both lower extremities Code(s): I89.0 - LYMPHEDEMA, NOT ELSEWHERE CLASSIFIED (17) Syncope Code(s): R55 - SYNCOPE AND COLLAPSE Qualifiers: Syncope type: unspecified Qualified Code(s): R55 - Syncope and collapse (18) Mild mitral regurgitation Code(s): I34.0 - NONRHEUMATIC MITRAL (VALVE) INSUFFICIENCY (19) Moderate pulmonary arterial systolic hypertension Code(s): I27.21 - SECONDARY PULMONARY ARTERIAL HYPERTENSION Assessment/Plan Assessment/plan: acute shortness of breath, acute diastolic CHF, acute iron deficiency anemia, abnormal LV diastolic compliance, mild MR, HTN, HLD, S/P CABG, chronic lymphedema, moderate pulmonary hypertension, vascular dementia, large hiatal hernia, interstitial pulmonary vascular congestion with bilateral pleural effusion with bibasilar compressive atelectasis; oral Furosemide 40mg po bid for diastolic CHF, oral potassium chloride for hypokalemia, DVT/GI prophylaxis, atorvastatin for HLD, metoprolol for HTN, physical therapy, discha rge planning, professor of social work request.
[2019-10-01] MEDS: metoPROLOL SUCCINATE 25 MG TAB.SR.24H (FP) PO SCH (09:35)
[2019-10-01] MEDS: MEMANTINE HCL 10 MG TABLET (FP) PO SCH ×2 (09:35→21:13)
[2019-10-01] MEDS: POTASSIUM CHLORIDE TABS 20 MEQ TABLET.ER (FP) PO SCH (09:35)
[2019-10-01] MEDS: ENOXAPARIN NA (PORCINE) 40 MG/0.4 ML DISP.SYRIN SQ SCH (09:36)
[2019-10-01] MEDS: FOLIC ACID 1 MG TABLET (FP) PO SCH (09:36)
[2019-10-01] MEDS: PANTOPRAZOLE SODIUM 40 MG VIAL IVPUSH SCH (09:36)
[2019-10-01] MEDS: CYANOCOBALAMIN 1,000 MCG TABLET (FP) PO SCH (09:44)
--- NOTE | 2019-10-01 13:09 | PN ---
Progress Note (short form) - Note Progress Note: CC: sob, hypoxia s: no cp sob palps dizzy loc pnd orthopnea. Current Medications Generic Name Dose Route Start Last Admin Trade Name Deborah PRN Reason Stop Dose Admin Acetaminophen 650 mg 09/23/19 18:27 09/26/19 21:18 Tylenol - PO 650 mg Q6H PRN Administration PAIN LEVEL 4 - 6 Atorvastatin Calcium 40 mg 09/23/19 22:00 09/30/19 21:14 Lipitor - PO 40 mg HS [facility] Administration Cyanocobalamin 1,000 mcg 09/24/19 10:00 10/01/19 09:44 Vitamin B12 - PO 1,000 mcg DAILY [facility] Administration Enoxaparin Sodium 40 mg 09/24/19 10:00 10/01/19 09:36 Lovenox - SQ 40 mg DAILY [facility] Administration Folic Acid 1 mg 09/24/19 10:00 10/01/19 09:36 Folic Acid - PO 1 mg DAILY [facility] Administration Furosemide 40 mg 09/29/19 06:00 10/01/19 05:35 Lasix - PO 40 mg BID@0600,1400 [facility] Administration Memantine 10 mg 09/23/19 22:00 10/01/19 09:35 Namenda - PO 10 mg BID [facility] Administration Metoprolol Succinate 25 mg 09/24/19 10:00 10/01/19 09:35 Toprol Xl - PO 25 mg DAILY [facility] Administration Pantoprazole Sodium 40 mg 09/23/19 18:45 10/01/19 09:36 Protonix Iv IVPUSH Not Given DAILY [facility] Potassium Chloride 20 meq 09/23/19 18:30 10/01/19 09:35 K-Dur - PO 20 meq DAILY [facility] Administration Senna 2 tab 09/23/19 22:00 09/25/19 21:57 Senna - PO 2 tab HS PRN Administration CONSTIPATION Vital Signs Period Temp Pulse Resp BP Sys/Rosenberg Pulse Ox Last 24 Hr 98.1 F-98.9 F 67-88 16-21 123-130/46-70 93-98 nad, calm jvd flat, neck supple ctab, nl effort rrr nl s1, s2, 2/6 sys murmur at sternal border + bs soft nt nd ext with trace LE edema bl, no cyanosis or clubbing + dp/pt, no carotid bruit alert, not oriented no jaundice, diaphoresis ekg: sr nl intervals no ischemic changes cxr: chf, b/l effs Echo 04/2017: nl lv/rv size/fn. 1+ mac. 1+ mr. mild-mod tr. rvsp nl. Echo 12/2014: nl LV size, nl overall EF; basal inferolat and [id number]-wr-[id number] IW hypo; conc LVH; nl RV; valves WNL; no pulm HTN echo 08/2019 nl LV function, E/A reversal, RV nl, mild MAC, mild MR, mod pulm HTN PASP 49 mmHg, calcification of AV without tele: sinus Assessment/Plan 84 year old female with a significant PMH of CAD (s/p 3 vessel CABG in 2016), dementia, anemia, HTN, hyperlipidemia, chronic bilateral LE edema, sent to ER from [facility] for sob and hypoxia. sob/hypoxia, anemia, acute on chronic diastolic chf: -pt with congestion and effusions on cxr and significant le edema, likely contributing to her sob/hypoxia. She also had significant anemia with hgb in 6s. - s/p PRBC transfusion - clinically improved on Lasix 40mg IV daily. CXR improved, appears euvolemic. was on lasix 40 qd prior to admit - changed to 40 bid po -anemia eval, GI consulted -no signs acs -nl LV function on echo with mod pulm HTN CP, cad s/p cabg: -stable, as above -cont statin, bb -hold asa due to severe anemia htn: -held home toprol due to low bp initially, now resumed hld: -cont statin
[2019-10-01 16:47] VITALS: BMI 30.9
[2019-10-01] MEDS: ATORVASTATIN CA 40 MG TABLET (FP) PO SCH (21:12)
[2019-10-02] MEDS: FUROSEMIDE 40 MG TABLET (FP) PO SCH ×2 (05:47→14:46)
[2019-10-02 06:32] LABS: BASO % 0.7 % (0-2.0); EOS % 0.4 % (0-4.5); HEMATOCRIT 36.6 % (32.4-45.2); HEMOGLOBIN 10.9 GM/dL (10.7-15.3); LYMPH % 9.9 % (8-40); MCH 21.1 pg (25.7-33.7); MCHC 29.9 g/dl (32.0-36.0); MEAN CELL VOLUME 70.4 fl (80-96); MEAN PLT VOLUME 9.7 fl (7.5-11.1); MONO % 9.6 % (3.8-10.2); NEUT % 79.4 % (42.8-82.8); PLATELET COUNT 230 K/MM3 (134-434); RBC 5.19 M/mm3 (3.60-5.2); RDW 30.4 % (11.6-15.6); WHITE BLOOD COUNT 7.2 K/mm3 (4.0-10.0)
[2019-10-02 06:49] LABS: ALBUMIN 2.8 g/dl (3.4-5.0); BILIRUBIN,TOTAL 0.6 mg/dL (0.2-1); BLOOD UREA NITROGEN 31.1 mg/dL (7-18); CALCIUM 8.8 mg/dL (8.5-10.1); CREATININE 0.8 mg/dL (0.55-1.3); POTASSIUM 3.8 mmol/L (3.5-5.1); TOT PROT 6.7 g/dl (6.4-8.2)
--- NOTE | 2019-10-02 08:53 | PN ---
Progress Note, Physician Chief Complaint: Patient seen and examined at the bedside in ICU, no acute events from last night, no labored breathing. History of Present Illness: This 84 yr old w/f with PMH of HTN, HLD, s/p CABG, chronic lymphedema admitted via ER with an acute shortness of breath, acute exacerbation of diastolic CHF, large hiatal hernia, acutely severe iron deficiency anemia, moderate pulmonary hypertension, abnormal LV diastolic compliance, mild MR, interstitial pulmonary vascular congestion with bilateral pleural effusion and bibasilar compressive atelectasis. - Current Medication List Current Medications: Active Medications Acetaminophen (Tylenol -) 650 mg PO Q6H PRN PRN Reason: PAIN LEVEL 4 - 6 Last Admin: 09/26/19 21:18 Dose: 650 mg Documented by: Atorvastatin Calcium (Lipitor -) 40 mg PO HS [facility] Last Admin: 10/01/19 21:12 Dose: 40 mg Documented by: Cyanocobalamin (Vitamin B12 -) 1,000 mcg PO DAILY [facility] Last Admin: 10/01/19 09:44 Dose: 1,000 mcg Documented by: Enoxaparin Sodium (Lovenox -) 40 mg SQ DAILY [facility] Last Admin: 10/01/19 09:36 Dose: 40 mg Documented by: Folic Acid (Folic Acid -) 1 mg PO DAILY [facility] Last Admin: 10/01/19 09:36 Dose: 1 mg Documented by: Furosemide (Lasix -) 40 mg PO BID@0600,1400 [facility] Last Admin: 10/02/19 05:47 Dose: 40 mg Documented by: Memantine (Namenda -) 10 mg PO BID [facility] Last Admin: 10/01/19 21:13 Dose: 10 mg Documented by: Metoprolol Succinate (Toprol Xl -) 25 mg PO DAILY [facility] Last Admin: 10/01/19 09:35 Dose: 25 mg Documented by: Pantoprazole Sodium (Protonix Iv) 40 mg IVPUSH DAILY [facility] Last Admin: 10/01/19 09:36 Dose: Not Given Documented by: Potassium Chloride (K-Dur -) 20 meq PO DAILY [facility] Last Admin: 10/01/19 09:35 Dose: 20 meq Documented by: Senna (Senna -) 2 tab PO HS PRN PRN Reason: CONSTIPATION Last Admin: 09/25/19 21:57 Dose: 2 tab Documented by: - Objective Vital Signs: Vital Signs Temperature 96.1 F L 08/05/20 06:00 Pulse Rate 69 10/02/19 06:00 Respiratory Rate 16 10/02/19 06:00 Blood Pressure 112/60 10/02/19 06:00 O2 Sat by Pulse Oximetry (%) 96 10/02/19 06:00 Constitutional: Yes: Well Nourished, No Distress, Calm Eyes: Yes: Conjunctiva Clear, EOM Intact HENT: Yes: Atraumatic, Normocephalic Neck: Yes: Supple, Trachea Midline Cardiovascular: Yes: Regular Rate and Rhythm Respiratory: Yes: Regular, CTA Bilaterally Gastrointestinal: Yes: Normal Bowel Sounds, Soft ...Rectal Exam: Yes: Deferred Genitourinary: Yes: Incontinence Breast(s): Yes: WNL Musculoskeletal: Yes: Muscle Weakness Extremities: Yes: Other (bilateral chronic lymphedema) Edema: Yes Edema: LLE: 3+, RLE: 3+ Peripheral Pulses WNL: Yes Integumentary: Yes: WNL Neurological: Yes: Alert, Unsteady Gait, Weakness ...Motor Strength: LUE (generalized muscle weakness of all extremities) Psychiatric: Yes: Alert Labs: CBC, BMP 10/02/19 05:25 10/02/19 05:25 INR, PTT INR 1.08 (0.83-1.09) 09/23/19 11:15 - ....Imaging Other: Report Reviewed (lab data reviewed) Problem List - Problems (1) Shortness of breath Code(s): R06.02 - SHORTNESS OF BREATH (2) Pulmonary vascular congestion Code(s): R09.89 - OTH SYMPTOMS AND SIGNS INVOLVING THE CIRC AND RESP SYSTEMS (3) Bilateral pleural effusion Code(s): J90 - PLEURAL EFFUSION, NOT ELSEWHERE CLASSIFIED (4) Atelectasis Code(s): J98.11 - ATELECTASIS (5) Hiatal hernia Code(s): K44.9 - DIAPHRAGMATIC HERNIA WITHOUT OBSTRUCTION OR GANGRENE (6) Moderate tricuspid regurgitation Code(s): I07.1 - RHEUMATIC TRICUSPID INSUFFICIENCY (7) Acute on chronic diastolic CHF (congestive heart failure) Code(s): I50.33 - ACUTE ON CHRONIC DIASTOLIC (CONGESTIVE) HEART FAILURE (8) 3-vessel CAD Code(s): I25.10 - ATHSCL HEART DISEASE OF [place] CORONARY ARTERY W/O ANG PCTRS (9) Atypical chest pain Code(s): R07.89 - OTHER CHEST PAIN (10) CAD of autologous bypass graft Code(s): I25.810 - ATHEROSCLEROSIS OF CABG W/O ANGINA PECTORIS (11) Cellulitis Code(s): L03.90 - CELLULITIS, UNSPECIFIED Qualifiers: Site of cellulitis: extremity Site of cellulitis of extremity: upper extremity Laterality: left Qualified Code(s): L03.114 - Cellulitis of left upper limb (12) Chest pain Code(s): R07.9 - CHEST PAIN, UNSPECIFIED Qualifiers: Chest pain type: unspecified Qualified Code(s): R07.9 - Chest pain, unspecified (13) HTN (hypertension) Code(s): I10 - ESSENTIAL (PRIMARY) HYPERTENSION (14) Hyperlipemia Code(s): E78.5 - HYPERLIPIDEMIA, UNSPECIFIED (15) Lymphedema Code(s): I89.0 - LYMPHEDEMA, NOT ELSEWHERE CLASSIFIED (16) Lymphedema of both lower extremities Code(s): I89.0 - LYMPHEDEMA, NOT ELSEWHERE CLASSIFIED (17) Syncope Code(s): R55 - SYNCOPE AND COLLAPSE Qualifiers: Syncope type: unspecified Qualified Code(s): R55 - Syncope and collapse (18) Mild mitral regurgitation Code(s): I34.0 - NONRHEUMATIC MITRAL (VALVE) INSUFFICIENCY (19) Moderate pulmonary arterial systolic hypertension Code(s): I27.21 - SECONDARY PULMONARY ARTERIAL HYPERTENSION Assessment/Plan Assessment/plan: oral Furosemide for shortness of breath and diastolic CHF, SQ Lovenox and Pantoprazole for DVT/GI prophylaxis, atorvastatin for HLD, metoprolol for HTN, oral potssium chloride for hypokalemia, senna for constipation, physical therapy, discharge planning, social media editor request.
[2019-10-02] MEDS: FOLIC ACID 1 MG TABLET (FP) PO SCH (09:15)
[2019-10-02] MEDS: MEMANTINE HCL 10 MG TABLET (FP) PO SCH (09:16)
[2019-10-02] MEDS: POTASSIUM CHLORIDE TABS 20 MEQ TABLET.ER (FP) PO SCH (09:17)
[2019-10-02] MEDS: metoPROLOL SUCCINATE 25 MG TAB.SR.24H (FP) PO SCH (09:17)
[2019-10-02] MEDS: CYANOCOBALAMIN 1,000 MCG TABLET (FP) PO SCH (09:18)
[2019-10-02] MEDS ORDERED: PT OWN MED DRAWER 7, Y5N ONE (09:18)
[2019-10-02] MEDS: ENOXAPARIN NA (PORCINE) 40 MG/0.4 ML DISP.SYRIN SQ SCH (09:20)
[2019-10-02] MEDS: PANTOPRAZOLE SODIUM 40 MG VIAL IVPUSH SCH (09:20)
[2019-10-02] MEDS: ACETAMINOPHEN 325 MG TABLET (FP) PO PRN (10:06)
--- NOTE | 2019-10-02 12:45 | PN ---
Progress Note (short form) - Note Progress Note: CC: sob, hypoxia s: no cp sob palps dizzy loc pnd orthopnea. Current Medications Generic Name Dose Route Start Last Admin Trade Name Deborah PRN Reason Stop Dose Admin Acetaminophen 650 mg 09/23/19 18:27 10/02/19 10:06 Tylenol - PO 650 mg Q6H PRN Administration PAIN LEVEL 4 - 6 Atorvastatin Calcium 40 mg 09/23/19 22:00 10/01/19 21:12 Lipitor - PO 40 mg HS JEFFERSON Administration Cyanocobalamin 1,000 mcg 09/24/19 10:00 10/02/19 09:18 Vitamin B12 - PO 1,000 mcg DAILY JEFFERSON Administration Enoxaparin Sodium 40 mg 09/24/19 10:00 10/02/19 09:20 Lovenox - SQ 40 mg DAILY JEFFERSON Administration Folic Acid 1 mg 09/24/19 10:00 10/02/19 09:15 Folic Acid - PO 1 mg DAILY JEFFERSON Administration Furosemide 40 mg 09/29/19 06:00 10/02/19 05:47 Lasix - PO 40 mg BID@0600,1400 JEFFERSON Administration Memantine 10 mg 09/23/19 22:00 10/02/19 09:16 Namenda - PO 10 mg BID JEFFERSON Administration Metoprolol Succinate 25 mg 09/24/19 10:00 10/02/19 09:17 Toprol Xl - PO 25 mg DAILY JEFFERSON Administration Pantoprazole Sodium 40 mg 09/23/19 18:45 10/02/19 09:20 Protonix Iv IVPUSH Not Given DAILY JEFFERSON Potassium Chloride 20 meq 09/23/19 18:30 10/02/19 09:17 K-Dur - PO 20 meq DAILY JEFFERSON Administration Senna 2 tab 09/23/19 22:00 09/25/19 21:57 Senna - PO 2 tab HS PRN Administration CONSTIPATION Vital Signs Period Temp Pulse Resp BP Sys/Rosenberg Pulse Ox Last 24 Hr 96.1 F-98.7 F 68-89 16-18 112-151/49-70 91-98 nad, calm jvd flat, neck supple ctab, nl effort rrr nl s1, s2, 2/6 sys murmur at sternal border + bs soft nt nd ext with trace LE edema bl, no cyanosis or clubbing + dp/pt, no carotid bruit alert, not oriented no jaundice, diaphoresis ekg: sr nl intervals no ischemic changes cxr: chf, b/l effs Echo 04/2017: nl lv/rv size/fn. 1+ mac. 1+ mr. mild-mod tr. rvsp nl. Echo 12/2014: nl LV size, nl overall EF; basal inferolat and [id number] IW hypo; conc LVH; nl RV; valves WNL; no pulm HTN echo 08/2019 nl LV function, E/A reversal, RV nl, mild MAC, mild MR, mod pulm HTN PASP 49 mmHg, calcification of AV without tele: sinus Assessment/Plan 84 year old female with a significant PMH of CAD (s/p 3 vessel CABG in 2016), dementia, anemia, HTN, hyperlipidemia, chronic bilateral LE edema, sent to ER from [facility] for sob and hypoxia. sob/hypoxia, anemia, acute on chronic diastolic chf: -pt with congestion and effusions on cxr and significant le edema, likely contributing to her sob/hypoxia. She also had significant anemia with hgb in 6s. - s/p PRBC transfusion - clinically improved on Lasix 40mg IV daily. CXR improved, appears euvolemic. was on lasix 40 qd prior to admit - changed to 40 bid po, continue -anemia eval, GI consulted -no signs acs -nl LV function on echo with mod pulm HTN CP, cad s/p cabg: -stable, as above -cont statin, bb -holding asa due to severe anemia htn: -held home toprol due to low bp initially, now resumed hld: -cont statin
[2019-10-02 17:41] VITALS: BP 148/56; PULSE 74; TEMP 98.5
--- NOTE | 2019-10-03 10:15 | DS ---
Physical Examination Vital Signs: Vital Signs Temperature 98.5 F 10/02/19 17:30 Pulse Rate 74 10/02/19 17:30 Respiratory Rate 17 10/02/19 17:30 Blood Pressure 148/56 L 10/02/19 17:30 O2 Sat by Pulse Oximetry (%) 97 10/02/19 17:30 Labs: CBC, BMP 10/02/19 05:25 10/02/19 05:25 Discharge Summary Problems reviewed: Yes Reason For Visit: SHORTNESS OF BREATH ANEMIA Condition: Stable - Instructions Diet, Activity, Other Instructions: Continue present meds. Physical therapy. Activity as tolerated. Transfer to [facility] for short term rehab. Total time spent over 30 minutes. Referrals: Faith Donato [Primary Care Provider] - Disposition: [facility]FWAY FACILITY - Home Medications Comprehensive Discharge Medication List: Ambulatory Orders Galantamine HBr [Razadyne ER] 24 mg PO DAILY 12/27/17 Acetaminophen [Tylenol .Extra-Strength -] 500 mg PO Q6H PRN tablet 12/28/17 Atorvastatin Ca [Lipitor] 40 mg PO HS tablet 12/28/17 Folic Acid - 1 mg PO DAILY tablet 12/28/17 Metoprolol Tartrate [Lopressor -] 25 mg PO DAILY tablet 12/28/17 Potassium Chloride [K-Dur -] 20 meq PO DAILY tablet.er 12/28/17 Cyanocobalamin [Vitamin B12 -] 1 tab PO DAILY 11/19/18 Memantine HCl 10 mg PO BID 11/19/18 Sennosides/Docusate Sodium [Senexon-S Tablet] 2 tab PO HS PRN 11/19/18 Acetaminophen [Tylenol .Regular Strength -] 650 mg PO Q6H PRN tablet 09/30/19 Atorvastatin Ca [Lipitor] 40 mg PO HS tablet 09/30/19 Cyanocobalamin [Vitamin B12 -] 1,000 mcg PO DAILY tablet 09/30/19 Folic Acid - 1 mg PO DAILY tablet 09/30/19 Furosemide [Lasix -] 40 mg PO BID@0600,1400 #60 tablet 09/30/19 Memantine HCl [Namenda -] 10 mg PO BID tablet 09/30/19 Metoprolol Succinate [Toprol XL -] 25 mg PO DAILY tab.sr.24h 09/30/19 Potassium Chloride [K-Dur -] 20 meq PO DAILY #60 tablet.er 09/30/19 Sennosides [Senna -] 2 tab PO HS PRN tablet 09/30/19
== END 2019-10-02 18:00 | DRG 292 ==
LOC: JER 11:40 → JERBED 17:11 → JICU 22:15
PROVIDERS: ADMIT Internal Medicine; ATTEND Internal Medicine
DX: I11.0 Hypertensive heart disease with heart failure (principal); J98.11 Atelectasis; L03.114 Cellulitis of left upper limb; E78.5 Hyperlipidemia, unspecified; I50.33 Acute on chronic diastolic (congestive) heart failure; Z95.1 Presence of aortocoronary bypass graft; I10 Essential (primary) hypertension; D64.9 Anemia, unspecified; I25.10 Atherosclerotic heart disease of native coronary artery without angina pectoris; K44.9 Diaphragmatic hernia without obstruction or gangrene; I07.1 Rheumatic tricuspid insufficiency; R07.89 Other chest pain; R09.89 Other specified symptoms and signs involving the circulatory and respiratory systems; I89.0 Lymphedema, not elsewhere classified; R55 Syncope and collapse; D50.9 Iron deficiency anemia, unspecified; I27.20 Pulmonary hypertension, unspecified; R09.02 Hypoxemia; R26.81 Unsteadiness on feet; I27.21 Secondary pulmonary arterial hypertension; M48.54XS Collapsed vertebra, not elsewhere classified, thoracic region, sequela of fracture; F01.50 Vascular dementia, unspecified severity, without behavioral disturbance, psychotic disturbance, mood disturbance, and anxiety; R00.0 Tachycardia, unspecified; E87.6 Hypokalemia; Z96.653 Presence of artificial knee joint, bilateral; Z96.619 Presence of unspecified artificial shoulder joint
CPT/HCPCS: 36415; 36430; 71045-TC-FY; 71250-TC; 74177-TC; 76937; 80053; 81003; 82272; 82607; 82728; 82746; 83516; 83540; 83550; 83605; 83735; 83880; 84484; 85025; 85044; 85610; 85730; 86850; 86900; 86901; 86922; 87040; 87086; 93005; 93010; 93306-TC; 93308; 97116-GP; 97162-GP; 99291; J1756; P9058; Q9967; U0003